=== PATIENT | female | born 1970 | race American Indian/Alaskan Native ===

== ENCOUNTER 2018-09-18 15:23 | Outpatient (CLI) | payer OTHER ==
--- NOTE | 2018-09-18 21:40 | XRay Report ---
PROCEDURE: XR CHEST ROUTINE 2V TECHNIQUE: PA and lateral chest radiographs were obtained. HISTORY: DISABILITY EXAM, HISTORY OF CONGESTIVE HEART FAILURE COMPARISONS: None. FINDINGS: Heart: Mild to moderate degree cardiomegaly is noted. Mediastinum/Vessels: Pulmonary venous congestion is identified. Lungs/Pleural space: There is diffuse prominence of interstitial markings. There are no infiltrates or mass lesions. Pleural spaces are clear.. Bony thorax: No acute osseous abnormality. IMPRESSION: Cardiomegaly with mild degree pulmonary venous congestion Prominent interstitial markings may represent interstitial edema versus interstitial fibrosis This document is electronically signed by Duy Zhang MD., Sep 18 2018 09:38:33 PM ET
== END 2018-09-18 15:24 | disposition home or self-care (01) ==
LOC: XRAY 15:23
PROVIDERS: ATTEND Internal Medicine
DX: Z02.71 Encounter for disability determination (principal); I87.8 Other specified disorders of veins; I11.0 Hypertensive heart disease with heart failure; I50.9 Heart failure, unspecified; E78.5 Hyperlipidemia, unspecified; E11.9 Type 2 diabetes mellitus without complications; Z86.79 Personal history of other diseases of the circulatory system
CPT/HCPCS: 71046

== ENCOUNTER 2020-03-28 00:25 | Inpatient (IN) | payer MEDICARE, OTHER ==
[2020-03-28] MEDS ORDERED: NITROGLYCERIN DRIP 50 MG/250 ML BOTTLE IV SCH (01:00)
--- NOTE | 2020-03-28 01:02 | Emergency Department Report ---
ED General Adult HPI - General Chief complaint: Dyspnea/Respdistress Stated complaint: JUDY PUI?: No Time Seen by Provider: 03/28/20 00:32 Source: patient, EMS (Verbal report received from emergency medical services. EMS documentation not available at time of chart dictation ), RN notes reviewed, old records reviewed Mode of arrival: Stretcher Limitations: Physical Limitation - History of Present Illness Initial comments: The patient was evaluated in the emergency department for symptoms described in the history of present illness. He/she was evaluated in the context of the global COVID-19 pandemic, which necessitated consideration that the patient might be at risk for infection with the virus that causes COVID-19. Ins titutional protocols and algorithms that pertain to the evaluation of patients at risk for COVID-19 are in a state of rapid change based on information released by regulatory bodies including the CDC and federal and state organizations. These policies and algorithms were followed during the patient's care in the emergency department. Please note that these policies, procedures and recommendations changed on a rapid basis. Cardiology: Dr. Zamarripa The patient is a 50-year-old female, with a history of CHF, EF of 20%, documented in 2015 at this hospital, reportedly on Eliquis, obesity, hype rtension, TIA. She is brought to the hospital today by emergency medical services on CPAP with a complaint of painless shortness of breath. The patient denies headache, neck pain, abdominal pain, chest pain. She denies hematemesis. She feels nauseous. No urinary symptoms. Reports compliance with systemic anticoagulation. Denies travel, surgery, recent , delivery, and posterior leg discomfort. States that this feels similar to prior episodes of CHF exacerbations. She endorses to myself compliance with medications, and denies dietary indiscretions. -: Sudden Consistency: constant Improves with: medication, rest, other (CPAP/BiPAP) Worsens with: other (Laying down, physical exertion) - Related Data Home Medications Medication Instructions Recorded Confirmed Last Taken metFORMIN [Glucophage] 500 mg PO BID 11/04/14 02/05/15 02/04/15 Previous Rx's Medication Instructions Recorded Last Taken Type Aspirin [Aspirin BABY CHEW TAB] 81 mg PO QDAY #30 tab.chew 11/10/14 02/04/15 Rx Enoxaparin 130 mg SUB-Q Q12HR #10 syringe 11/10/14 02/04/15 Rx Famotidine [Pepcid] 20 mg PO BID #60 tablet 11/10/14 02/04/15 Rx Insulin Glargine [Lantus VIAL] 10 units SUB-Q QHS #30 units 11/10/14 02/04/15 Rx Simvastatin (Nf) [Zocor TAB] 20 mg PO QHS #30 tablet 11/10/14 02/04/15 Rx Spironolactone [Aldactone] 25 mg PO QDAY #30 tablet 11/10/14 02/04/15 Rx Warfarin [Coumadin] 2 mg PO DAILY@1700 #30 tablet 11/10/14 02/04/15 Rx Warfarin [Coumadin] 10 mg PO DAILY@1700 #30 tablet 11/10/14 02/04/15 Rx amLODIPine 10 mg PO QDAY #30 tablet 11/10/14 02/04/15 Rx carvediloL [Coreg] 25 mg PO BID #30 tablet 11/10/14 02/04/15 Rx lisinopriL [Zestril TAB] 10 mg PO QDAY #30 tablet 11/10/14 02/04/15 Rx oxyCODONE /ACETAMINOPHEN [Percocet 1 tab PO Q6HR PRN #14 tablet 02/05/15 Unknown Rx 5/325] Allergies Allergy/AdvReac Type Severity Reaction Status Date / Time meperidine HCl [From Demerol] Allergy Itching Verified 11/04/14 18:36 penicillin Allergy Unknown Verified 11/04/14 17:55 ED Review of Systems ROS: Stated complaint: JUDY Other details as noted in HPI Comment: Unobtainable due to pts medical conditions Constitutional: denies: fever Respiratory: cough, shortness of breath Cardiovascular: dyspnea on exertion, orthopnea. denies: chest pain Gastrointestinal: denies: hematemesis, melena, hematochezia Neurological: weakness Hematological/Lymphatic: denies: easy bleeding ED Past Medical Hx - Past Medical History Hx Hypertension: Yes Hx Heart Attack/AMI: No Hx Congestive Heart Failure: No Hx Diabetes: Yes Hx Deep Vein Thrombosis: No Hx Pulmonary Embolism: No Hx Liver Disease: No Hx Renal Disease: No Hx Sickle Cell Disease: No Hx Arthritis: No Hx Seizures: No Hx Kidney Stones: No Hx Asthma: No Hx COPD: No Hx Tuberculosis: No Hx Dementia: No Hx HIV: No - Surgical History Hx Coronary Stent: No Hx Pacemaker: No Hx Internal Defibrillator: No Additional Surgical History: tubal ligation - Social History Smoking Status: Never Smoker Substance Use Type: None - Medications Home Medications: Home Medications Medication Instructions Recorded Confirmed Last Taken Type metFORMIN [Glucophage] 500 mg PO BID 11/04/14 02/05/15 02/04/15 History Aspirin [Aspirin BABY CHEW TAB] 81 mg PO QDAY #30 tab.chew 11/10/14 02/05/15 02/04/15 Rx Enoxaparin 130 mg SUB-Q Q12HR #10 syringe 11/10/14 02/05/15 02/04/15 Rx Famotidine [Pepcid] 20 mg PO BID #60 tablet 11/10/14 02/05/15 02/04/15 Rx Insulin Glargine [Lantus VIAL] 10 units SUB-Q QHS #30 units 11/10/14 02/05/15 02/04/15 Rx Simvastatin (Nf) [Zocor TAB] 20 mg PO QHS #30 tablet 11/10/14 02/05/15 02/04/15 Rx Spironolactone [Aldactone] 25 mg PO QDAY #30 tablet 11/10/14 02/05/15 02/04/15 Rx Warfarin [Coumadin] 2 mg PO DAILY@1700 #30 tablet 11/10/14 02/05/15 02/04/15 Rx Warfarin [Coumadin] 10 mg PO DAILY@1700 #30 tablet 11/10/14 02/05/15 02/04/15 Rx amLODIPine 10 mg PO QDAY #30 tablet 11/10/14 02/05/15 02/04/15 Rx carvediloL [Coreg] 25 mg PO BID #30 tablet 11/10/14 02/05/15 02/04/15 Rx lisinopriL [Zestril TAB] 10 mg PO QDAY #30 tablet 11/10/14 02/05/15 02/04/15 Rx oxyCODONE /ACETAMINOPHEN [Percocet 1 tab PO Q6HR PRN #14 tablet 02/05/15 Unknown Rx 5/325] ED Physical Exam - General Limitations: Physical Limitation General appearance: alert, anxious, in distress, obese - Head Head exam: Present: atraumatic, normocephalic - Eye Eye exam: Present: normal appearance, EOMI. Absent: nystagmus - ENT ENT exam: Present: normal exam, normal orophraynx, mucous membranes moist, normal external ear exam, other (There is no stridor.) - Neck Neck exam: Present: normal inspection, full ROM. Absent: tenderness, meningismus - Respiratory Respiratory exam: Present: respiratory distress, wheezes, rales, rhonchi, accessory muscle use - Cardiovascular Cardiovascular Exam: Present: normal rhythm, tachycardia, normal heart sounds. Absent: systolic murmur, diastolic murmur, rubs, gallop - GI/Abdominal GI/Abdominal exam: Present: soft. Absent: distended, tenderness, guarding, rebound, rigid, pulsatile mass - Extremities Exam Extremities exam: Present: normal inspection, full ROM, pedal edema (1-2+ edema in the bilateral lower extremities), other (2+ pulses noted in the bilateral upper and lower extremities. There is no palpable cord. negative Homans sign. Muscular compartments are soft. The pelvis is stable.). Absent: calf tenderness - Back Exam Back exam: Present: normal inspection. Absent: tenderness, CVA tenderness (R), CVA tenderness (L), paraspinal tenderness, vertebral tenderness - Neurological Exam Neurological exam: Present: alert, other (No facial droop. Tongue midline. Extraocular movements intact bilaterally. Facial sensation intact to light touch in V1, V2, V3 distribution bilaterally. 5 and a 5 strength in 4 extremities. Sensation intact to light touch in 4 extremities.) - Psychiatric Psychiatric exam: Present: anxious - Skin Skin exam: Present: warm, dry, intact, normal color. Absent: rash ED Course Vital Signs 03/28/20 03/28/20 03/28/20 00:30 00:45 01:00 Temperature 98.9 F Pulse Rate 123 H 127 H 123 H Respiratory 48 H 41 H 38 H Rate Blood Pressure 210/117 Blood Pressure 210/117 [Left] O2 Sat by Pulse 98 96 100 Oximetry 03/28/20 03/28/20 03/28/20 01:01 01:15 01:30 Temperature Pulse Rate 123 H 122 H 122 H Respiratory 33 H 29 H 22 Rate Blood Pressure 201/113 201/113 173/104 Blood Pressure [Left] O2 Sat by Pulse 100 100 100 Oximetry 03/28/20 03/28/20 03/28/20 01:45 02:00 02:15 Temperature Pulse Rate 120 H 118 H 120 H Respiratory 29 H 26 H 20 Rate Blood Pressure 166/95 172/98 172/98 Blood Pressure [Left] O2 Sat by Pulse 100 100 100 Oximetry 03/28/20 03/28/20 02:30 02:45 Temperature Pulse Rate 116 H 93 H Respiratory 24 18 Rate Blood Pressure 157/90 157/90 Blood Pressure [Left] O2 Sat by Pulse 100 100 Oximetry - Reevaluation(s) Reevaluation #1: 03/28/20 02:29 Patient reassessed multiple times. She indicates that she feels improved. Heart rate 115 to 117 bpm, blood pressure in the 140s. Laboratory studies demonstrate proBNP, elevated troponin, likely type II troponin leak, renal insufficiency, and metabolic acidosis. Patient states no abdominal pain at this time. High-dose Lasix is ordered. Hospital physician, Dr. Kizzy Xavier to admit Arterial blood gas suggests uncompensated metabolic acidosis, which is consisten t with patient's renal insufficiency. Elevated lactic acid is reviewed and appreciated. We appreciate that patient meets systemic inflammatory response syndrome, by merit of her abnormal vital signs and lactic acidosis. However, I suspect that her vital sign abnormalities and laboratory abnormalities are likely secondary to her renal insufficiency, and flash pulmonary edema. Do not suspect stephanie teremia/viremia at this time. Given evidence of obvious fluid overload, hypoxemic respiratory failure, need for positive pressure ventilation, requirements for diuresis, the patient would be ill served by aggressive fluid resuscitation/bolus. In addition, there may be a component of cardiorenal syndrome here, with congestive heart failure. Will defer to inpatient team to further elaborate and elucidate 03/28/20 02:30 03/28/20 02:32 Reevaluation #2: 03/28/20 03:28 Clinically much improved. Tachycardia resolved. EKG #3 shows sinus rhythm, normal axis, QTC prolonged. Prior EKG suggested a junctional tachycardia. Still on nitroglycerin. ED Medical Decision Making - Lab Data Result diagrams: 03/28/20 00:44 03/28/20 00:44 Vital Signs 03/28/20 01:00 Pulse Rate 123 H Respiratory 38 H Rate O2 Sat by Pulse 100 Oximetry Lab Results 03/28/20 03/28/20 Range/Units 00:44 01:05 WBC 11.0 (4.5-11.0) K/mm3 RBC 2.87 L (3.65-5.03) M/mm3 Hgb 9.2 L (10.1-14.3) gm/dl Hct 28.6 L (30.3-42.9) % MCV 100 H (79-97) fl MCH 32 (28-32) pg MCHC 32 (30-34) % RDW 18.7 H (13.2-15.2) % Plt Count 256 (140-440) K/mm3 Lymph % (Auto) 20.0 (13.4-35.0) % [place] % (Auto) 11.0 H (0.0-7.3) % Eos % (Auto) 1.4 (0.0-4.3) % Baso % (Auto) 0.6 (0.0-1.8) % Lymph # (Auto) 2.2 (1.2-5.4) K/mm3 [place] # (Auto) 1.2 H (0.0-0.8) K/mm3 Eos # (Auto) 0.2 (0.0-0.4) K/mm3 Baso # (Auto) 0.1 (0.0-0.1) K/mm3 Seg Neutrophils % 67.0 (40.0-70.0) % Seg Neutrophils # 7.4 (1.8-7.7) K/mm3 ABG pH 7.224 L (7.350-7.450) pH Units ABG pCO2 35.1 mm Hg ABG pO2 153.4 H (80.0-90.0) mm Hg ABG HCO3 14.2 L (20.0-26.0) mmol/L ABG O2 Saturation 98.7 (95.0-99.0) % ABG O2 Content 11.5 (0.0-44) ABG Base Excess -12.4 L (-2.0-3.0) mmol/L ABG Hemoglobin 8.2 L (12.0-16.0) gm/dl ABG Carboxyhemoglobin 1.6 (0.0-5.0) % ABG Methemoglobin 0.4 (0.0-1.5) % Oxyhemoglobin 96.7 (95.0-99.0) % FiO2 100 % - EKG Data -: EKG Interpreted by Va Rate: tachycardia - EKG Data 03/28/20 02:32 EKG suggests a junctional tachycardia, rate 122 bpm, normal axis, QTC 493 ms. Abnormal EKG. No STEMI. - Radiology Data Radiology results: pending, report reviewed, image reviewed Print Report Referring Physician: DAHLIA HOYOS Patient Name: JADA WORRELL Date of : 1970 Sex: Female Report Date: 2020-03-28 Report Status: Finalized Findings [facility] [address] [place] [address] XRay Report Signed Patient: JADA TAPIA MR#: [id number] : 1970 Acct:[id number] Age/Sex: 50 / F ADM Date: 03/28/20 Loc: ED Attending Dr: Ordering Physician: DAHLIA HOYOS MD Date of Service: 03/28/20 Procedure(s): XR chest 1V ap Accession Number(s): [id number] cc: DAHLIA HOYOS MD Fluoro Time In Minutes: CHEST 1 VIEW INDICATION: Dyspnea. COMPARISON: 09/18/2018 FINDINGS: SUPPORT DEVICES: None. HEART: Mild cardiomegaly. LUNGS/PLEURA: Mild- moderate interstitial edema. ADDITIONAL FINDINGS: None. IMPRESSION: 1. Cardiomegaly with mild to moderate interstitial edema. Signer Name: Jovan Varela MD Signed: 03/28/2020 1:10 AM Workstation Name: [id number] Transcribed By: JW Dictated By: Jovan Varela MD Electronically Authenticated By: Jovan Varela MD Signed Date/Time: 03/28/20109 DD/ 9 TD/TT: - Medical Decision Making Differential diagnosis, including but not limited to: Congestive heart failure, pneumonia, flash pulmonary edema, sympathetic acute pulmonary edema Assessment and plan: 50-year-old female, tachycardic, tachypneic, hypoxic, with no DVT or pulmonary embolism risk factors, who is systemically anticoagulated, resenting with probable flash pulmonary edema. She is improved on BiPAP. Start high-dose nitroglycerin. Denies fever, loss of taste, loss of smell, and exposure to Covid. Check basic laboratory studies, x-ray of the chest, diuresis when appropriate, admit to stepdown versus ICU. Discussed this plan of care with the patient, who verbalized understanding, and who is amenable to this plan of care. Critical Care Time: Yes Critical care time in (mins) excluding proc time.: 35 Critical care attestation.: If time is entered above; I have spent that time in minutes in the direct care of this critically ill patient, excluding procedure time. ED Disposition Clinical Impression: Flash pulmonary edema, Acute respiratory failure, Hypertensive emergency, Renal insufficiency, Metabolic acidosis Disposition: DC-09 OP ADMIT IP TO THIS HOSP Is pt being admited?: Yes Does the pt Need Aspirin: No Condition: Critical
--- NOTE | 2020-03-28 01:15 | XRay Report ---
CHEST 1 VIEW INDICATION: Dyspnea. COMPARISON: 09/18/2018 FINDINGS: SUPPORT DEVICES: None. HEART: Mild cardiomegaly. LUNGS/PLEURA: Mild-moderate interstitial edema. ADDITIONAL FINDINGS: None. IMPRESSION: 1. Cardiomegaly with mild to moderate interstitial edema. Signer Name: Jovan Varela MD Signed: 03/28/2020 1:10 AM Workstation Name: [id number]
[2020-03-28 01:27] LABS: ABG Base Excess -12.4 mmol/L (-2.0-3.0); ABG HCO3 14.2 mmol/L (20.0-26.0); ABG Methemoglobin 0.4 % (0.0-1.5); ABG Oxygen Saturation 98.7 % (95.0-99.0); ABG PCO2 35.1 mm Hg; ABG PH 7.224 pH Units (7.350-7.450); ABG PO2 153.4 mm Hg (80.0-90.0)
[2020-03-28 01:27] LABS: Basophils # (Auto) 0.1 K/mm3 (0.0-0.1); Basophils % (Auto) 0.6 % (0.0-1.8); Eosinophils # (Auto) 0.2 K/mm3 (0.0-0.4); Eosinophils % (Auto) 1.4 % (0.0-4.3); Hematocrit 28.6 % (30.3-42.9); Hemoglobin 9.2 gm/dl (10.1-14.3); Lymphocytes # (Auto) 2.2 K/mm3 (1.2-5.4); Mean Corpuscular HGB Conc 32 % (30-34); Mean Corpuscular Volume 100 fl (79-97); Monocytes # (Auto) 1.2 K/mm3 (0.0-0.8); Platelet Count 256 K/mm3 (140-440); Red Blood Count 2.87 M/mm3 (3.65-5.03); Red Cell Distribution Width 18.7 % (13.2-15.2)
[2020-03-28 01:36] LABS: INR 1.26 (0.87-1.13)
[2020-03-28 01:47] LABS: Albumin 4.4 g/dL (3.9-5)
[2020-03-28] MEDS ORDERED: ASPIRIN 81 MG TAB CHEW PO ONE (02:28)
[2020-03-28] MEDS ORDERED: FUROSEMIDE 40 MG/4 ML INJ IV ONE (02:28)
[2020-03-28 02:30] LABS: Chol/HDL Ratio 2.29 %
[2020-03-28] MEDS ORDERED: DEXTROSE 50% IN WATER (25GM) 50 ML SYRINGE IV PRN (03:29)
[2020-03-28] MEDS ORDERED: ONDANSETRON 4 MG/2 ML INJ IV PRN (03:29)
[2020-03-28] MEDS ORDERED: MORPHINE 2 MG/1 ML INJ IV PRN (03:29)
[2020-03-28] MEDS ORDERED: MAGNESIUM HYDROXIDE (MOM) ORAL LIQD UDC PO PRN (03:29)
--- NOTE | 2020-03-28 03:46 | History and Physical Report ---
History of Present Illness Date of examination: 03/28/20 Date of admission: 03/28/20 02:31 Chief complaint: Shortness of Breath History of present illness: 50-year-old female with known history of hypertension, diabetes mellitus, TIA, CHF with ejection fraction of 20% in 2014 presenting to the emergency room via EMS today complaining of shortness of breath. Patient denies any fever or chills, no chest pain, no diaphoresis, no nausea vomiting, no abdominal pain, no hematuria or dysuria. Denies any headache or dizziness. Patient denies any sick contacts and no recent travel. Symptoms were said to have started earlier this afternoon. Patient was placed on CPAP by EMS in route to the hospital. Upon arrival in the emergency room today blood pressure was quite elevated with systolic in the 240 and diastolic of 117. She was tachypneic in room some respiratory distress. Work-up reveals elevated BNP, there was a slight elevation in the troponin, chest x-ray shows pulmonary vascular congestion, EKG did not show any acute changes. Patient was started on nitroglycerin drip, given some IV Lasix and subsequently placed on BiPAP. Patient has been admitted for CHF exacerbation, hypertensive emergency and renal insufficiency. Past History Past Medical History: diabetes, heart failure (EF 20 % in 2015.), hypertension, other (Obesity) Past Surgical History: Other (Tubal Ligation) Social history: no significant social history Family history: no significant family history Medications and Allergies Allergies Allergy/AdvReac Type Severity Reaction Status Date / Time meperidine HCl [From Demerol] Allergy Itching Verified 11/04/14 18:36 penicillin Allergy Unknown Verified 11/04/14 17:55 Home Medications Medication Instructions Recorded Confirmed Last Taken Type metFORMIN [Glucophage] 500 mg PO BID 11/04/14 02/05/15 02/04/15 History Aspirin [Aspirin BABY CHEW TAB] 81 mg PO QDAY #30 tab.chew 11/10/14 02/05/15 02/04/15 Rx Enoxaparin 130 mg SUB-Q Q12HR #10 syringe 11/10/14 02/05/15 02/04/15 Rx Famotidine [Pepcid] 20 mg PO BID #60 tablet 11/10/14 02/05/15 02/04/15 Rx Insulin Glargine [Lantus VIAL] 10 units SUB-Q QHS #30 units 11/10/14 02/05/15 02/04/15 Rx Simvastatin (Nf) [Zocor TAB] 20 mg PO QHS #30 tablet 11/10/14 02/05/15 02/04/15 Rx Spironolactone [Aldactone] 25 mg PO QDAY #30 tablet 11/10/14 02/05/15 02/04/15 Rx Warfarin [Coumadin] 2 mg PO DAILY@1700 #30 tablet 11/10/14 02/05/15 02/04/15 Rx Warfarin [Coumadin] 10 mg PO DAILY@1700 #30 tablet 11/10/14 02/05/15 02/04/15 Rx amLODIPine 10 mg PO QDAY #30 tablet 11/10/14 02/05/15 02/04/15 Rx carvediloL [Coreg] 25 mg PO BID #30 tablet 11/10/14 02/05/15 02/04/15 Rx lisinopriL [Zestril TAB] 10 mg PO QDAY #30 tablet 11/10/14 02/05/15 02/04/15 Rx oxyCODONE /ACETAMINOPHEN [Percocet 1 tab PO Q6HR PRN #14 tablet 02/05/15 Unknown Rx 5/325] Active Meds: Active Medications Dextrose (D50w (25gm) Syringe) 50 ml IV Q30MIN PRN; Protocol PRN Reason: Hypoglycemia Dextrose (D50w (25gm) Syringe) 50 ml IV Q30MIN PRN; Protocol PRN Reason: Hypoglycemia Furosemide (Lasix) 40 mg IV BID@0600,1800 IRVIN Nitroglycerin/Dextrose (Tridil Drip 50mg/250ml) 50 mg in 250 mls @ 3 mls/hr IV TITR IRVIN; Protocol Last Admin: 03/28/20 01:00 Dose: 10 mcg/min, 3 mls/hr Documented by: Insulin Human Lispro (Humalog) 0 unit SUB-Q ACHS IRVIN; Protocol Magnesium Hydroxide (Milk Of Magnesia) 30 ml PO Q4H PRN PRN Reason: Constipation Morphine Sulfate (Morphine) 2 mg IV Q4H PRN PRN Reason: Pain, Moderate (4-6) Ondansetron HCl (Zofran) 4 mg IV Q8H PRN PRN Reason: Nausea And Vomiting Sodium Chloride (Sodium Chloride Flush Syringe 10 Ml) 10 ml IV BID IRVIN Sodium Chloride (Sodium Chloride Flush Syringe 10 Ml) 10 ml IV PRN PRN PRN Reason: LINE FLUSH Review of Systems Constitutional: no fever, no chills Ears, nose, mouth and throat: no nasal congestion, no sore throat Cardiovascular: no chest pain, no palpitations Respiratory: no cough, no shortness of breath, no wheezing Gastrointestinal: no abdominal pain, no nausea, no vomiting, no diarrhea Genitourinary Female: no flank pain, no dysuria, no hematuria Musculoskeletal: no neck pain, no low back pain Integumentary: no rash, no pruritis Neurological: no headaches, no confusion Psychiatric: no anxiety, no depression Exam - Constitutional Vitals: Temp Pulse Resp BP Pulse Ox 98.9 F 123 H 26 H 157/90 100 03/28/20 00:30 03/28/20 03:35 03/28/20 03:35 03/28/20 02:45 03/28/20 03:35 General appearance: Present: mild distress, well-nourished - EENT Eyes: Present: PERRL, EOM intact. Absent: scleral icterus ENT: hearing intact, clear oral mucosa, dentition normal - Neck Neck: Present: supple, normal ROM - Respiratory Respiratory effort: normal Respiratory: bilateral: rales - Cardiovascular Rhythm: regular Heart Sounds: Present: S1 & S2. Absent: gallop, systolic murmur, diastolic murmur, rub - Extremities Extremities: no ischemia, pulses intact, pulses symmetrical, No edema, Full ROM Peripheral Pulses: within normal limits - Abdominal General gastrointestinal: Present: soft, non-tender, non-distended, normal bowel sounds. Absent: mass - Integumentary Integumentary: Present: clear, warm, dry. Absent: rash - Musculoskeletal Musculoskeletal: strength equal bilaterally - Psychiatric Psychiatric: appropriate mood/affect, intact judgment & insight, memory intact, cooperative - Neurologic Neurologic: CNII-XII intact, no focal deficits, moves all extremities HEART Score - HEART Score Troponin: Troponin T 0.134 ng/mL (0.00-0.029) H* 03/28/20 00:44 Results - Labs CBC & Chem 7: 03/28/20 00:44 03/28/20 00:44 Labs: Abnormal lab results 03/28/20 03/28/20 03/28/20 Range/Units 00:44 00:44 00:44 RBC 2.87 L (3.65-5.03) M/mm3 Hgb 9.2 L (10.1-14.3) gm/dl Hct 28.6 L (30.3-42.9) % MCV 100 H (79-97) fl RDW 18.7 H (13.2-15.2) % [place] % (Auto) 11.0 H (0.0-7.3) % [place] # (Auto) 1.2 H (0.0-0.8) K/mm3 PT 15.6 H (12.2-14.9) Sec. INR 1.26 H (0.87-1.13) ABG pH (7.350-7.450) pH Units ABG pO2 (80.0-90.0) mm Hg ABG HCO3 (20.0-26.0) mmol/L ABG Base Excess (-2.0-3.0) mmol/L ABG Hemoglobin (12.0-16.0) gm/dl Carbon Dioxide 11 L (22-30) mmol/L BUN 65 H (7-17) mg/dL Creatinine 4.7 H (0.6-1.2) mg/dL Glucose 118 H (65-100) mg/dL Lactic Acid (0.7-2.0) mmol/L Total Bilirubin 1.40 H (0.1-1.2) mg/dL Alkaline Phosphatase 260 H (35-129) units/L Troponin T 0.134 H* (0.00-0.029) ng/mL NT-Pro-B Natriuret Pep (0-450) pg/mL Total Protein 8.6 H (6.3-8.2) g/dL HDL Cholesterol 62 H (40-59) mg/dL HCG, Quant (0-4) mIU/mL 03/28/20 03/28/20 03/28/20 Range/Units 00:44 00:44 00:44 RBC (3.65-5.03) M/mm3 Hgb (10.1-14.3) gm/dl Hct (30.3-42.9) % MCV (79-97) fl RDW (13.2-15.2) % [place] % (Auto) (0.0-7.3) % [place] # (Auto) (0.0-0.8) K/mm3 PT (12.2-14.9) Sec. INR (0.87-1.13) ABG pH (7.350-7.450) pH Units ABG pO2 (80.0-90.0) mm Hg ABG HCO3 (20.0-26.0) mmol/L ABG Base Excess (-2.0-3.0) mmol/L ABG Hemoglobin (12.0-16.0) gm/dl Carbon Dioxide (22-30) mmol/L BUN (7-17) mg/dL Creatinine (0.6-1.2) mg/dL Glucose (65-100) mg/dL Lactic Acid 5.20 H* (0.7-2.0) mmol/L Total Bilirubin (0.1-1.2) mg/dL Alkaline Phosphatase (35-129) units/L Troponin T (0.00-0.029) ng/mL NT-Pro-B Natriuret Pep 71590 H (0-450) pg/mL Total Protein (6.3-8.2) g/dL HDL Cholesterol (40-59) mg/dL HCG, Quant 9.39 H (0-4) mIU/mL 03/28/20 Range/Units 01:05 RBC (3.65-5.03) M/mm3 Hgb (10.1-14.3) gm/dl Hct (30.3-42.9) % MCV (79-97) fl RDW (13.2-15.2) % [place] % (Auto) (0.0-7.3) % [place] # (Auto) (0.0-0.8) K/mm3 PT (12.2-14.9) Sec. INR (0.87-1.13) ABG pH 7.224 L (7.350-7.450) pH Units ABG pO2 153.4 H (80.0-90.0) mm Hg ABG HCO3 14.2 L (20.0-26.0) mmol/L ABG Base Excess -12.4 L (-2.0-3.0) mmol/L ABG Hemoglobin 8.2 L (12.0-16.0) gm/dl Carbon Dioxide (22-30) mmol/L BUN (7-17) mg/dL Creatinine (0.6-1.2) mg/dL Glucose (65-100) mg/dL Lactic Acid (0.7-2.0) mmol/L Total Bilirubin (0.1-1.2) mg/dL Alkaline Phosphatase (35-129) units/L Troponin T (0.00-0.029) ng/mL NT-Pro-B Natriuret Pep (0-450) pg/mL Total Protein (6.3-8.2) g/dL HDL Cholesterol (40-59) mg/dL HCG, Quant (0-4) mIU/mL Assessment and Plan - Patient Problems (1) Pulmonary edema Current Visit: Yes Status: Acute Plan to address problem: Patient has known history of CHF with ejection fraction of 20% in 2015. Patient is placed on diuretics. Will monitor inputs and outputs and also monitor daily weight. She will be scheduled for echocardiogram. We will place a consult to cardiology for evaluation. (2) Acute respiratory failure Current Visit: Yes Status: Acute Plan to address problem: Possibly secondary to flash pulmonary edema. Patient currently on BiPAP. (3) Hypertensive emergency Current Visit: Yes Status: Acute Plan to address problem: Patient placed on nitroglycerin drip. Will titrate according to protocol. (4) Renal insufficiency Current Visit: Yes Status: Acute Plan to address problem: We will monitor BUN and creatinine. We will place consult to nephrology for evaluation. (5) Diabetes mellitus Current Visit: No Status: Chronic Plan to address problem: We will monitor Accu-Cheks. We will continue routine home medications once reconciled. (6) DVT prophylaxis Current Visit: Yes Status: Acute Plan to address problem: Patient placed on subcutaneous heparin. (7) Full code status Current Visit: Yes Status: Acute
[2020-03-28] MEDS: FUROSEMIDE 40 MG/4 ML INJ IV SCH ×2 (06:29→18:27)
[2020-03-28] MEDS: INSULIN LISPRO 100 UNIT/ML VIAL 3 mL SUB-Q SCH ×3 (07:50→16:55)
--- NOTE | 2020-03-28 09:54 | Progress Note ---
Assessment and Plan Assessment and plan: --Acute pulmonary edema: Current Visit: Yes Status: Acute Plan to address problem: Patient has known history of CHF with ejection fraction of 20% in 2015. Due to acute on chronic systolic congestive heart failure Antifailure medications diuretic beta-blockers No MODESTO inhibitors in view of acute kidney injury Input output monitoring Daily weights Fluid restriction low-sodium diet Follow echocardiogram for LV function ejection fraction --Acute on chronic mild systolic CHF[EF 40 to 45% 03/28/2020] Current Visit: Yes Status: Acute Plan to address problem: Continue current antifailure medications Cardiology following -- Hypertensive emergency Current Visit: Yes Status: Acute Plan to address problem: Patient placed on nitroglycerin drip. BP reasonable level titrate and DC the drip --Acute kidney injury Current Visit: Yes Status: Acute Plan to address problem: Vasomotor nephropathy , Closely monitor renal function, avoid nephrotoxin Nephrology consult --Type II diabetes mellitus Current Visit: No Status: Chronic Plan to address problem: Accu-Chek sliding scale coverage ADA diet insulin as needed --Morbid obesity; BMI 40.0 Current Visit: Yes Status: Acute . Plan to address problem: Advised diet modification exercise as tolerated and weight reduction, When medically stable --DVT prophylaxis Current Visit: Yes Status: Acute . Plan to address problem: Patient placed on subcutaneous heparin. --Full code status Current Visit: Yes Status: Acute We will closely monitor the patient and adjust the management as needed We will titrate and DC nitroglycerin drip And downgrade patient's admission from ICU to telemetry Plan of care reviewed with the patient and her nurse Bella labs requested Critical care time 45 minutes The high probability of a clinically significant, sudden or life threatening deterioration of the [cardiac, pulmonary, metabolic ,renal, neuro] system(s) required my full and direct attention, intervention and personal management. The aggregate critical care time was [45] minutes. This time is in addition to time spent performing reported procedures but includes the following: [x] Data Review and interpretation [x] Patient assessment and monitoring of vital signs [x] Documentation [x] Medication orders and management History Interval history: I have seen and examined the patient at the bedside in ICU awaiting bed assignment Patient's chart and medications reviewed Admitted with hypertensive emergency On Tridil drip, blood pressures reasonable level Titrate and DC nitroglycerin drip Patient denies chest pain or shortness of breath Vital signs noted Hospitalist Physical - Constitutional Vitals: Temp Pulse Resp BP Pulse Ox 98.9 F 82 18 165/90 100 03/28/20 00:30 03/28/20 09:15 03/28/20 09:15 03/28/20 09:15 03/28/20 09:15 General appearance: Present: mild distress, well-nourished, obese (Morbidly obese) - EENT Eyes: Present: PERRL, EOM intact - Neck Neck: Present: supple, normal ROM - Respiratory Respiratory effort: normal Respiratory: bilateral: diminished, negative: rales, rhonchi, wheezing - Cardiovascular Rhythm: regular Heart Sounds: Present: S1 & S2 - Extremities Extremities: no ischemia Extremity abnormal: edema - Abdominal General gastrointestinal: soft, non-tender, non-distended, normal bowel sounds - Integumentary Integumentary: Present: clear, warm - Psychiatric Psychiatric: appropriate mood/affect, cooperative - Neurologic Neurologic: CNII-XII intact, moves all extremities HEART Score - HEART Score Troponin: Troponin T 0.134 ng/mL (0.00-0.029) H* 03/28/20 00:44 Results - Labs CBC & Chem 7: 03/28/20 00:44 03/28/20 00:44 Labs: Laboratory Last Values WBC 11.0 K/mm3 (4.5-11.0) 03/28/20 00:44 RBC 2.87 M/mm3 (3.65-5.03) L 03/28/20 00:44 Hgb 9.2 gm/dl (10.1-14.3) L 03/28/20 00:44 Hct 28.6 % (30.3-42.9) L 03/28/20 00:44 MCV 100 fl (79-97) H 03/28/20 00:44 MCH 32 pg (28-32) 03/28/20 00:44 MCHC 32 % (30-34) 03/28/20 00:44 RDW 18.7 % (13.2-15.2) H 03/28/20 00:44 Plt Count 256 K/mm3 (140-440) 03/28/20 00:44 Lymph % (Auto) 20.0 % (13.4-35.0) 03/28/20 00:44 [place] % (Auto) 11.0 % (0.0-7.3) H 03/28/20 00:44 Eos % (Auto) 1.4 % (0.0-4.3) 03/28/20 00:44 Baso % (Auto) 0.6 % (0.0-1.8) 03/28/20 00:44 Lymph # (Auto) 2.2 K/mm3 (1.2-5.4) 03/28/20 00:44 [place] # (Auto) 1.2 K/mm3 (0.0-0.8) H 03/28/20 00:44 Eos # (Auto) 0.2 K/mm3 (0.0-0.4) 03/28/20 00:44 Baso # (Auto) 0.1 K/mm3 (0.0-0.1) 03/28/20 00:44 Seg Neutrophils % 67.0 % (40.0-70.0) 03/28/20 00:44 Seg Neutrophils # 7.4 K/mm3 (1.8-7.7) 03/28/20 00:44 PT 15.6 Sec. (12.2-14.9) H 03/28/20 00:44 INR 1.26 (0.87-1.13) H 03/28/20 00:44 ABG pH 7.224 pH Units (7.350-7.450) L 03/28/20 01:05 ABG pCO2 35.1 mm Hg 03/28/20 01:05 ABG pO2 153.4 mm Hg (80.0-90.0) H 03/28/20 01:05 ABG HCO3 14.2 mmol/L (20.0-26.0) L 03/28/20 01:05 ABG O2 Saturation 98.7 % (95.0-99.0) 03/28/20 01:05 ABG O2 Content 11.5 (0.0-44) 03/28/20 01:05 ABG Base Excess -12.4 mmol/L (-2.0-3.0) L 03/28/20 01:05 ABG Hemoglobin 8.2 gm/dl (12.0-16.0) L 03/28/20 01:05 ABG Carboxyhemoglobin 1.6 % (0.0-5.0) 03/28/20 01:05 ABG Methemoglobin 0.4 % (0.0-1.5) 03/28/20 01:05 Oxyhemoglobin 96.7 % (95.0-99.0) 03/28/20 01:05 FiO2 100 % 03/28/20 01:05 Sodium 139 mmol/L (137-145) 03/28/20 00:44 Potassium 4.8 mmol/L (3.6-5.0) 03/28/20 00:44 Chloride 106.8 mmol/L (98-107) 03/28/20 00:44 Carbon Dioxide 11 mmol/L (22-30) L 03/28/20 00:44 Anion Gap 26 mmol/L 03/28/20 00:44 BUN 65 mg/dL (7-17) H 03/28/20 00:44 Creatinine 4.7 mg/dL (0.6-1.2) H 03/28/20 00:44 Estimated GFR 12 ml/min 03/28/20 00:44 BUN/Creatinine Ratio 14 % 03/28/20 00:44 Glucose 118 mg/dL (65-100) H 03/28/20 00:44 POC Glucose 108 mg/dL (70-105) H 03/28/20 06:56 Lactic Acid 5.20 mmol/L (0.7-2.0) H* 03/28/20 00:44 Calcium 10.0 mg/dL (8.4-10.2) 03/28/20 00:44 Magnesium 2.20 mg/dL (1.7-2.3) 03/28/20 00:44 Total Bilirubin 1.40 mg/dL (0.1-1.2) H 03/28/20 00:44 AST 23 units/L (5-40) 03/28/20 00:44 ALT 21 units/L (7-56) 03/28/20 00:44 Alkaline Phosphatase 260 units/L (35-129) H 03/28/20 00:44 Total Creatine Kinase 134 units/L (30-135) 03/28/20 00:44 Troponin T 0.134 ng/mL (0.00-0.029) H* 03/28/20 00:44 NT-Pro-B Natriuret Pep 10920 pg/mL (0-450) H 03/28/20 00:44 Total Protein 8.6 g/dL (6.3-8.2) H 03/28/20 00:44 Albumin 4.4 g/dL (3.9-5) 03/28/20 00:44 Albumin/Globulin Ratio 1.0 % 03/28/20 00:44 Triglycerides 120 mg/dL (2-149) 03/28/20 00:44 Cholesterol 142 mg/dL (50-199) 03/28/20 00:44 LDL Cholesterol Direct 67 mg/dL (50-130) 03/28/20 00:44 HDL Cholesterol 62 mg/dL (40-59) H 03/28/20 00:44 Cholesterol/HDL Ratio 2.29 % 03/28/20 00:44 HCG, Quant 9.39 mIU/mL (0-4) H 03/28/20 00:44 Microbiology: Microbiology 03/28/20 01:12 Peripheral/Venous Blood Culture - Preliminary Culture in Progress 03/28/20 01:12 Peripheral/Venous Blood Culture - Preliminary Culture in Progress Mot[place]/IV: IV Catheter Type [Right INT / Saline Lock Antecubital] Active Medications - Current Medications Current Medications: Generic Name Dose Route Start Last Admin Trade Name Freq PRN Reason Stop Dose Admin Amlodipine Besylate 10 mg 03/28/20 10:00 Amlodipine PO DAILY [facility] Carvedilol 25 mg 03/28/20 10:00 Coreg PO Q12HR [facility] Dextrose 0 ml 03/28/20 03:29 D50w (25gm) Syringe IV Q30MIN PRN Hypoglycemia Protocol Furosemide 40 mg 03/28/20 06:00 03/28/20 06:29 Lasix IV Not Given BID@0600,1800 [facility] Hydralazine HCl 75 mg 03/28/20 14:00 Apresoline PO Q8HR [facility] Nitroglycerin/Dextrose 50 mg in 250 mls @ 3 mls/hr 03/28/20 01:00 03/28/20 06:45 Tridil Drip 50mg/250ml IV 40 mcg/min TITR [facility] 12 mls/hr Titration Protocol 10 MCG/MIN Insulin Human Lispro 0 unit 03/28/20 07:30 03/28/20 07:50 Humalog SUB-Q Not Given ACHS [facility] Protocol Isosorbide Mononitrate 30 mg 03/28/20 10:00 Imdur PO DAILY [facility] Magnesium Hydroxide 30 ml 03/28/20 03:29 Milk Of Magnesia PO Q4H PRN Constipation Morphine Sulfate 2 mg 03/28/20 03:29 Morphine IV Q4H PRN Pain, Moderate (4-6) Ondansetron HCl 4 mg 03/28/20 03:29 Zofran IV Q8H PRN Nausea And Vomiting Sodium Chloride 10 ml 03/28/20 10:00 Sodium Chloride Flush Syringe 10 Ml IV BID [facility] Sodium Chloride 10 ml 03/28/20 03:29 Sodium Chloride Flush Syringe 10 Ml IV PRN PRN LINE FLUSH
[2020-03-28] MEDS ORDERED: carvediloL 25 MG TAB ONE (10:29)
[2020-03-28] MEDS ORDERED: amLODIPine 10 MG TAB ONE (10:29)
--- NOTE | 2020-03-28 10:30 | Consultation ---
History of Present Illness Consult date: 03/28/20 Requesting physician: QUINTON PATTEN Reason for consult: hypoxemia History of present illness: 50 y/o female, morbid obesity presents with shortness of breath. Required PPV given her elevated BP and work of breathing. BNP was >25K. Started on IV diuresis and has had mild improvement. Patient last seen in this hospital system back in 2014, per cards has been following up with [facility]. Past History Past Medical History: diabetes, heart failure (EF 20 % in 2015.), hypertension, other (Obesity) Past Surgical History: Other (Tubal Ligation) Social history: no significant social history Family history: no significant family history Medications and Allergies Allergies Allergy/AdvReac Type Severity Reaction Status Date / Time meperidine HCl [From Demerol] Allergy Itching Verified 03/28/20 07:34 penicillin Allergy Unknown Verified 03/28/20 07:34 Home Medications Medication Instructions Recorded Confirmed Last Taken Type AtorvaSTATin [Lipitor] 40 mg PO QHS 03/28/20 03/28/20 Unknown History Bumetanide 2 mg PO BID 03/28/20 03/28/20 Unknown History Cyclobenzaprine [Flexeril] 10 mg PO QDAY PRN 03/28/20 03/28/20 Unknown History Furosemide [Lasix TAB] 40 mg PO BID 03/28/20 03/28/20 Unknown History Hydralazine HCl 75 mg PO TID 03/28/20 03/28/20 Unknown History ISOSORBIDE MONOnitrate [Imdur ER] 30 mg PO DAILY 03/28/20 03/28/20 Unknown History Sevelamer Carbonate [Renvela] 800 mg PO TID 03/28/20 03/28/20 Unknown History allopurinoL [Zyloprim] 300 mg PO QDAY 03/28/20 03/28/20 Unknown History amLODIPine [Norvasc] 10 mg PO DAILY 03/28/20 03/28/20 Unknown History carvediloL [Coreg] 25 mg PO BID 03/28/20 03/28/20 Unknown History glipiZIDE [Glucotrol] 10 mg PO BID 03/28/20 03/28/20 Unknown History predniSONE 10 mg PO QDAY 03/28/20 03/28/20 Unknown History Active Meds: Active Medications Amlodipine Besylate (Amlodipine) 10 mg PO DAILY [facility] Apixaban (Eliquis) 5 mg PO Q12HR [facility]; Protocol Carvedilol (Coreg) 25 mg PO Q12HR [facility] Dextrose (D50w (25gm) Syringe) 0 ml IV Q30MIN PRN; Protocol PRN Reason: Hypoglycemia Furosemide (Lasix) 40 mg IV BID@0600,1800 [facility] Last Admin: 03/28/20 06:29 Dose: Not Given Documented by: Hydralazine HCl (Apresoline) 75 mg PO Q8HR [facility] Nitroglycerin/Dextrose (Tridil Drip 50mg/250ml) 50 mg in 250 mls @ 3 mls/hr IV TITR [facility]; Protocol Last Titration: 03/28/20 06:45 Dose: 40 mcg/min, 12 mls/hr Documented by: Insulin Human Lispro (Humalog) 0 unit SUB-Q ACHS [facility]; Protocol Last Admin: 03/28/20 07:50 Dose: Not Given Documented by: Isosorbide Mononitrate (Imdur) 30 mg PO DAILY [facility] Magnesium Hydroxide (Milk Of Magnesia) 30 ml PO Q4H PRN PRN Reason: Constipation Morphine Sulfate (Morphine) 2 mg IV Q4H PRN PRN Reason: Pain, Moderate (4-6) Ondansetron HCl (Zofran) 4 mg IV Q8H PRN PRN Reason: Nausea And Vomiting Sodium Chloride (Sodium Chloride Flush Syringe 10 Ml) 10 ml IV BID [facility] Sodium Chloride (Sodium Chloride Flush Syringe 10 Ml) 10 ml IV PRN PRN PRN Reason: LINE FLUSH Physical Examination Vital signs: Vital Signs Temp Pulse Resp BP Pulse Ox 98.9 F 123 H 48 H 210/117 98 03/28/20 00:30 03/28/20 00:30 03/28/20 00:30 03/28/20 00:30 03/28/20 00:30 Results - Laboratory Findings CBC and BMP: 03/28/20 00:44 03/28/20 00:44 ABG ABG pH 7.224 pH Units (7.350-7.450) L 03/28/20 01:05 ABG pCO2 35.1 mm Hg 03/28/20 01:05 ABG pO2 153.4 mm Hg (80.0-90.0) H 03/28/20 01:05 ABG O2 Saturation 98.7 % (95.0-99.0) 03/28/20 01:05 PT/INR, D-dimer PT 15.6 Sec. (12.2-14.9) H 03/28/20 00:44 INR 1.26 (0.87-1.13) H 03/28/20 00:44 Abnormal lab findings: Abnormal Labs 03/28/20 03/28/20 03/28/20 00:44 00:44 00:44 RBC 2.87 L Hgb 9.2 L Hct 28.6 L MCV 100 H RDW 18.7 H [place] % (Auto) 11.0 H [place] # (Auto) 1.2 H PT 15.6 H INR 1.26 H ABG pH ABG pO2 ABG HCO3 ABG Base Excess ABG Hemoglobin Carbon Dioxide 11 L BUN 65 H Creatinine 4.7 H Glucose 118 H POC Glucose Lactic Acid Total Bilirubin 1.40 H Alkaline Phosphatase 260 H Troponin T 0.134 H* NT-Pro-B Natriuret Pep Total Protein 8.6 H HDL Cholesterol 62 H HCG, Quant 03/28/20 03/28/20 03/28/20 00:44 00:44 00:44 RBC Hgb Hct MCV RDW [place] % (Auto) [place] # (Auto) PT INR ABG pH ABG pO2 ABG HCO3 ABG Base Excess ABG Hemoglobin Carbon Dioxide BUN Creatinine Glucose POC Glucose Lactic Acid 5.20 H* Total Bilirubin Alkaline Phosphatase Troponin T NT-Pro-B Natriuret Pep 40797 H Total Protein HDL Cholesterol HCG, Quant 9.39 H 03/28/20 03/28/20 01:05 06:56 RBC Hgb Hct MCV RDW [place] % (Auto) [place] # (Auto) PT INR ABG pH 7.224 L ABG pO2 153.4 H ABG HCO3 14.2 L ABG Base Excess -12.4 L ABG Hemoglobin 8.2 L Carbon Dioxide BUN Creatinine Glucose POC Glucose 108 H Lactic Acid Total Bilirubin Alkaline Phosphatase Troponin T NT-Pro-B Natriuret Pep Total Protein HDL Cholesterol HCG, Quant Assessment and Plan 50 y/o morbidly obese female with hypertensive urgency and acute on chronic systolic/diastolic heart failure exacerbation with volume overload. 1. Restart Home meds 2. Stop Nitro drip 3. Wean Bipap to off 4. Will likely need Bipap at night as well given size 5. Continue diuresis given systolic heart failure and volume overload with acute respiratory failure.
--- NOTE | 2020-03-28 10:59 | Consultation ---
History of Present Illness Consult date: 03/28/20 Requesting physician: RAMIRO YEPEZ Consult reason: congestive heart failure, hypertension History of present illness: The pt is a 50-year-old female with a past medical history of HFrEF, CMP, LV thrombus, paroxysmal atrial fibrillation, CVA, CKD, anemia, HTN, DM. She has been seen by our practice on prior admission and reports she is regularly followed by [facility]. She presented with c/o sudden onset SOB overnight. She was placed on CPAP per EMS and is currently on BiPAP, CXR with pulmonary edema. Admission BP 210/117 for which pt was initiated on nitro gtt. She denies any chest pain, palpitations, n/v, diaphoresis, dizziness or syncope. Labwork is significant for BUN/Cr 65/4.7, H/H 9.2/28.6, trop 0.134, pro-BNP >25K. Admission ECG shows atrial fibrillation. Pt is noted to be back in NSR on evaluation. tte done at [facility] 06/2019 showed EF 40-45%, mod pulm HTN with RVSP 50mmHg, mild TR, no LV thrombus. tte done at [facility] 10/2014 showed EF 25-30%, mild LVH, thrombus in LV apex. Past History Past Medical History: diabetes, heart failure (EF 20 % in 2014.), hypertension, other (Obesity) Past Surgical History: Other (Tubal Ligation) Social history: no significant social history Family history: no significant family history Medications and Allergies Allergies Allergy/AdvReac Type Severity Reaction Status Date / Time meperidine HCl [From Demerol] Allergy Itching Verified 03/28/20 07:34 penicillin Allergy Unknown Verified 03/28/20 07:34 Home Medications Medication Instructions Recorded Confirmed Last Taken Type AtorvaSTATin [Lipitor] 40 mg PO QHS 03/28/20 03/28/20 Unknown History Bumetanide 2 mg PO BID 03/28/20 03/28/20 Unknown History Cyclobenzaprine [Flexeril] 10 mg PO QDAY PRN 03/28/20 03/28/20 Unknown History Furosemide [Lasix TAB] 40 mg PO BID 03/28/20 03/28/20 Unknown History Hydralazine HCl 75 mg PO TID 03/28/20 03/28/20 Unknown History ISOSORBIDE MONOnitrate [Imdur ER] 30 mg PO DAILY 03/28/20 03/28/20 Unknown History Sevelamer Carbonate [Renvela] 800 mg PO TID 03/28/20 03/28/20 Unknown History allopurinoL [Zyloprim] 300 mg PO QDAY 03/28/20 03/28/20 Unknown History amLODIPine [Norvasc] 10 mg PO DAILY 03/28/20 03/28/20 Unknown History carvediloL [Coreg] 25 mg PO BID 03/28/20 03/28/20 Unknown History glipiZIDE [Glucotrol] 10 mg PO BID 03/28/20 03/28/20 Unknown History predniSONE 10 mg PO QDAY 03/28/20 03/28/20 Unknown History Active Meds: Active Medications Amlodipine Besylate (Amlodipine) 10 mg PO DAILY [facility] Apixaban (Eliquis) 5 mg PO Q12HR [facility]; Protocol Carvedilol (Coreg) 25 mg PO Q12HR [facility] Dextrose (D50w (25gm) Syringe) 0 ml IV Q30MIN PRN; Protocol PRN Reason: Hypoglycemia Furosemide (Lasix) 40 mg IV BID@0600,1800 [facility] Last Admin: 03/28/20 06:29 Dose: Not Given Documented by: Hydralazine HCl (Apresoline) 75 mg PO Q8HR [facility] Nitroglycerin/Dextrose (Tridil Drip 50mg/250ml) 50 mg in 250 mls @ 3 mls/hr IV TITR [facility]; Protocol Last Titration: 03/28/20 06:45 Dose: 40 mcg/min, 12 mls/hr Documented by: Insulin Human Lispro (Humalog) 0 unit SUB-Q ACHS [facility]; Protocol Last Admin: 03/28/20 07:50 Dose: Not Given Documented by: Isosorbide Mononitrate (Imdur) 30 mg PO DAILY [facility] Magnesium Hydroxide (Milk Of Magnesia) 30 ml PO Q4H PRN PRN Reason: Constipation Morphine Sulfate (Morphine) 2 mg IV Q4H PRN PRN Reason: Pain, Moderate (4-6) Ondansetron HCl (Zofran) 4 mg IV Q8H PRN PRN Reason: Nausea And Vomiting Sodium Chloride (Sodium Chloride Flush Syringe 10 Ml) 10 ml IV BID [facility] Sodium Chloride (Sodium Chloride Flush Syringe 10 Ml) 10 ml IV PRN PRN PRN Reason: LINE FLUSH Review of Systems Constitutional: no fever, no chills, no sweats Ears, nose, mouth and throat: no ear pain, no nose pain, no sinus pressure, no sinus pain Cardiovascular: shortness of breath, dyspnea on exertion, high blood pressure, no chest pain, no palpitations, no rapid/irregular heart beat, no edema, no syncope, no lightheadedness Respiratory: shortness of breath, dyspnea on exertion, no cough, no congestion, no wheezing, no pain on inspiration Gastrointestinal: no abdominal pain, no nausea, no vomiting, no diarrhea, no constipation, no change in bowel habits Genitourinary Female: no pelvic pain, no flank pain, no dysuria, no urinary frequency, no urgency Musculoskeletal: no neck stiffness, no neck pain, no shooting arm pain, no arm numbness/tingling, no low back pain, no shooting leg pain Integumentary: no rash, no pruritis, no redness, no sores, no wounds Neurological: no head injury, no paralysis, no weakness, no parathesias, no numbness, no tingling, no seizures, no syncope Psychiatric: no anxiety Endocrine: no cold intolerance, no heat intolerance Hematologic/Lymphatic: no easy bruising, no easy bleeding Allergic/Immunologic: no urticaria Physical Examination Vital Signs Temp Pulse Resp BP Pulse Ox 98.9 F 123 H 48 H 210/117 98 03/28/20 00:30 03/28/20 00:30 03/28/20 00:30 03/28/20 00:30 03/28/20 00:30 General appearance: other (on BiPAP) HEENT: Positive: PERRL, Normocephaly, Mucus Membranes Moist Neck: Positive: neck supple, trachea midline Cardiac: Positive: Reg Rate and Rhythm, S1/S2 Lungs: Positive: Decreased Breath Sounds, Oxygen Neuro: Positive: Grossly Intact Abdomen: Negative: Tender Skin: Negative: Rash Musculoskeletal: No Pain Extremities: Absent: edema Results 03/28/20 00:44 03/28/20 00:44 Cardiac Enzymes 03/28/20 Range/Units 00:44 AST 23 (5-40) units/L Coagulation 03/28/20 Range/Units 00:44 PT 15.6 H (12.2-14.9) Sec. INR 1.26 H (0.87-1.13) Lipids 03/28/20 Range/Units 00:44 Triglycerides 120 (2-149) mg/dL Cholesterol 142 (50-199) mg/dL HDL Cholesterol 62 H (40-59) mg/dL Cholesterol/HDL Ratio 2.29 % CBC 03/28/20 Range/Units 00:44 WBC 11.0 (4.5-11.0) K/mm3 RBC 2.87 L (3.65-5.03) M/mm3 Hgb 9.2 L (10.1-14.3) gm/dl Hct 28.6 L (30.3-42.9) % Plt Count 256 (140-440) K/mm3 Lymph # (Auto) 2.2 (1.2-5.4) K/mm3 [place] # (Auto) 1.2 H (0.0-0.8) K/mm3 Eos # (Auto) 0.2 (0.0-0.4) K/mm3 Baso # (Auto) 0.1 (0.0-0.1) K/mm3 Comprehensive Metabolic Panel 03/28/20 Range/Units 00:44 Sodium 139 (137-145) mmol/L Potassium 4.8 (3.6-5.0) mmol/L Chloride 106.8 (98-107) mmol/L Carbon Dioxide 11 L (22-30) mmol/L BUN 65 H (7-17) mg/dL Creatinine 4.7 H (0.6-1.2) mg/dL Glucose 118 H (65-100) mg/dL Calcium 10.0 (8.4-10.2) mg/dL AST 23 (5-40) units/L ALT 21 (7-56) units/L Alkaline Phosphatase 260 H (35-129) units/L Total Protein 8.6 H (6.3-8.2) g/dL Albumin 4.4 (3.9-5) g/dL - Imaging and Cardiology Echo: report reviewed ([facility] 06/2019 showed EF 40-45%, mod pulm HTN with RVSP 50mmHg, mild TR, no LV thrombus. ) EKG: report reviewed, image reviewed EKG interpretations - Telemetry EKG Rhythm: Sinus Rhythm - EKG Supraventricular dysrhythmia: atrial fibrillation Assessment and Plan Optimize anti-hypertensive regimen and wean off nitro gtt. Wean O2 per pulmonary. Agree with IV lasix BID, nephrology consultation pending. CE elevation appears c/w NSTEMI type II. Cont to trend [place] and f/u ECG in AM. F/u t te. Resume home Eliquis. Will follow. The patient has been seen in conjunction with Dr. Banks who agrees with the assessment and plan of care. - Patient Problems (1) Acute HFrEF (heart failure with reduced ejection fraction) Current Visit: Yes Status: Acute (2) Cardiomyopathy Current Visit: Yes Status: Chronic (3) Acute respiratory failure Current Visit: Yes Status: Acute (4) Flash pulmonary edema Current Visit: Yes Status: Acute (5) Hypertensive emergency Current Visit: Yes Status: Acute (6) Paroxysmal atrial fibrillation Current Visit: Yes Status: Chronic (7) Acute on chronic renal failure Current Visit: Yes Status: Acute (8) NSTEMI (non-ST elevated myocardial infarction) Current Visit: Yes Status: Acute Plan to address problem: suspect type II (9) Anemia Current Visit: Yes Status: Acute (10) Lactic acidosis Current Visit: Yes Status: Acute (11) Diabetes mellitus Current Visit: Yes Status: Chronic (12) History of CVA (cerebrovascular accident) Current Visit: Yes Status: Chronic (13) Left ventricular apical thrombus Current Visit: No Status: Chronic Plan to address problem: 2015
[2020-03-28] MEDS: carvediloL 25 MG TAB PO SCH ×2 (11:56→23:10)
[2020-03-28] MEDS: amLODIPine 10 MG TAB PO SCH (11:57)
[2020-03-28] MEDS ORDERED: APIXABAN 5 MG TAB ONE (12:57)
[2020-03-28] MEDS: APIXABAN 5 MG TAB PO SCH ×2 (13:02→23:10)
[2020-03-28] MEDS ORDERED: hydrALAZINE 25 MG TAB ONE (14:39)
[2020-03-28] MEDS: hydrALAZINE 25 MG TAB PO SCH ×2 (14:42→23:11)
--- NOTE | 2020-03-28 14:56 | Consultation ---
History of Present Illness - Reason for Consult Consult date: 03/28/20 acute renal failure, chronic renal failure - History of Present Illness This patient is a 50 YO AAF with known history of Morbid obesity, Hypertension, DM type 2, TIA, CHF with ejection fraction of 20% in 2015, LV thrombus, paroxysmal atrial fibrillation, CVA, Anemia and CKD stage 4-5 who presented to [facility] ED 03/28 via EMS complaining of shortness of breath for the past few days. Patient admits N & V intermittently for the past few days. She denies any fever, chills, chest pain, diaphoresis, diarrhea, abdominal pain, hematuria, dysuria, leg swelling, headache or dizziness. Patient denies any sick contacts and no recent travel. Patient was placed on CPAP by EMS in route to the hospital. Initial BP was 240/117. Labs significant for Creat 4.7, BUN 65, Bicarb 11, Lactate 5.2, elevated Troponin and BNP. CXR showed Cardiomegaly and mild to moderate vascular congestion. In the ED patient was started on nitrogly cerin drip, given IV Lasix and subsequently placed on BiPAP. Patient has been admitted for CHF exacerbation, hypertensive emergency and renal insufficiency. Nephrology was consulted for further evaluation of renal insufficiency. Currently patient is not followed by any Med Spec. Past History Past Medical History: atrial fib, anemia, diabetes, heart failure (EF 20 % in 2015.), hypertension, hyperlipidemia, renal failure, other (Obesity) Past Surgical History: Other (Tubal Ligation) Social history: no significant social history Family history: no significant family history Medications and Allergies Allergies Allergy/AdvReac Type Severity Reaction Status Date / Time meperidine HCl [From Demerol] Allergy Itching Verified 03/28/20 07:34 penicillin Allergy Unknown Verified 03/28/20 07:34 Home Medications Medication Instructions Recorded Confirmed Last Taken Type AtorvaSTATin [Lipitor] 40 mg PO QHS 03/28/20 03/28/20 Unknown History Bumetanide 2 mg PO BID 03/28/20 03/28/20 Unknown History Cyclobenzaprine [Flexeril] 10 mg PO QDAY PRN 03/28/20 03/28/20 Unknown History Furosemide [Lasix TAB] 40 mg PO BID 03/28/20 03/28/20 Unknown History Hydralazine HCl 75 mg PO TID 03/28/20 03/28/20 Unknown History ISOSORBIDE MONOnitrate [Imdur ER] 30 mg PO DAILY 03/28/20 03/28/20 Unknown History Sevelamer Carbonate [Renvela] 800 mg PO TID 03/28/20 03/28/20 Unknown History allopurinoL [Zyloprim] 300 mg PO QDAY 03/28/20 03/28/20 Unknown History amLODIPine [Norvasc] 10 mg PO DAILY 03/28/20 03/28/20 Unknown History carvediloL [Coreg] 25 mg PO BID 03/28/20 03/28/20 Unknown History glipiZIDE [Glucotrol] 10 mg PO BID 03/28/20 03/28/20 Unknown History predniSONE 10 mg PO QDAY 03/28/20 03/28/20 Unknown History Active Meds: Active Medications Amlodipine Besylate (Amlodipine) 10 mg PO DAILY [facility] Last Admin: 03/28/20 11:57 Dose: 10 mg Documented by: Apixaban (Eliquis) 5 mg PO Q12HR [facility]; Protocol Last Admin: 03/28/20 13:02 Dose: 5 mg Documented by: Carvedilol (Coreg) 25 mg PO Q12HR [facility] Last Admin: 03/28/20 11:56 Dose: 25 mg Documented by: Dextrose (D50w (25gm) Syringe) 0 ml IV Q30MIN PRN; Protocol PRN Reason: Hypoglycemia Furosemide (Lasix) 40 mg IV BID@0600,1800 [facility] Last Admin: 03/28/20 06:29 Dose: Not Given Documented by: Hydralazine HCl (Apresoline) 75 mg PO Q8HR [facility] Last Admin: 03/28/20 14:42 Dose: 75 mg Documented by: Nitroglycerin/Dextrose (Tridil Drip 50mg/250ml) 50 mg in 250 mls @ 3 mls/hr IV TITR [facility]; Protocol Last Titration: 03/28/20 06:45 Dose: 40 mcg/min, 12 mls/hr Documented by: Insulin Human Lispro (Humalog) 0 unit SUB-Q ACHS [facility]; Protocol Last Admin: 03/28/20 12:52 Dose: Not Given Documented by: Isosorbide Mononitrate (Imdur) 30 mg PO DAILY [facility] Last Admin: 12/01/20 11:57 Dose: 30 mg Documented by: Magnesium Hydroxide (Milk Of Magnesia) 30 ml PO Q4H PRN PRN Reason: Constipation Morphine Sulfate (Morphine) 2 mg IV Q4H PRN PRN Reason: Pain, Moderate (4-6) Ondansetron HCl (Zofran) 4 mg IV Q8H PRN PRN Reason: Nausea And Vomiting Sodium Chloride (Sodium Chloride Flush Syringe 10 Ml) 10 ml IV BID IRVIN Last Admin: 03/28/20 12:53 Dose: 10 ml Documented by: Sodium Chloride (Sodium Chloride Flush Syringe 10 Ml) 10 ml IV PRN PRN PRN Reason: LINE FLUSH Review of Systems Constitutional: no weight loss, no weight gain, no fever, no chills, no anorexia, no fatigue, no weakness, no poor appetite Breasts: deferred Cardiovascular: orthopnea, shortness of breath, dyspnea on exertion, high blood pressure, decreased exercise tolerance, no chest pain, no edema, no syncope, no lightheadedness, no leg edema Respiratory: shortness of breath, dyspnea on exertion, no cough, no hemoptysis Gastrointestinal: nausea, vomiting, no abdominal pain, no diarrhea, no melena, no hematochezia Genitourinary Female: no dysuria, no hematuria Integumentary: no rash, no wounds, no jaundice Neurological: no paralysis, no weakness, no seizures, no syncope, no change in mentation, no confusion Exam - Vital Signs Vital signs: Vital Signs Temp Pulse Resp BP Pulse Ox 98.9 F 123 H 48 H 210/117 98 03/28/20 00:30 03/28/20 00:30 03/28/20 00:30 03/28/20 00:30 03/28/20 00:30 Results - Lab Results 03/28/20 00:44 03/28/20 00:44 Most recent lab results ABG pH 7.224 pH Units (7.350-7.450) L 03/28/20 01:05 ABG pCO2 35.1 mm Hg 03/28/20 01:05 ABG pO2 153.4 mm Hg (80.0-90.0) H 03/28/20 01:05 ABG HCO3 14.2 mmol/L (20.0-26.0) L 03/28/20 01:05 ABG O2 Saturation 98.7 % (95.0-99.0) 03/28/20 01:05 Calcium 10.0 mg/dL (8.4-10.2) 03/28/20 00:44 Magnesium 2.20 mg/dL (1.7-2.3) 03/28/20 00:44 Assessment and Plan 1. CKD stage 5 vs Acute kidney injury: Patient was diagnosed with CKD stage 4-5 in june 2019. Most likely progressive CKD in the setting of poorly controlled HTN, DM and CHF. Suspect CKD progressed to CKD. DAVID, ANCA, Complements, GBM Ab and SPEP were negative. Urine studies and Renal US ordered. Monitor renal function. GFR is low. Renal prognosis is guarded to poor. Avoid nephrotoxic agents. Meds dosage based on GFR. 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 Explained patient that she may need dialysis during this hospitalization. 2. FEN: Volume overload, IV diuretics. Anion-gap metabolic acidosis, 2/2 lactic acidosis and CKD/LELIA, monitor. Monitor lytes and volume status. 3. Acute HFrEF (heart failure with reduced ejection fraction): Beta blockers. Followed by Cards. 4. NSTEMI. 5. Acute respiratory failure: 2/2 pulmonary edema. Diuretics. Supplemental O2. 6. Hypertensive emergency: Nitro drip. Resume home meds. BP is improving. 7. Paroxysmal atrial fibrillation: Monitor. 8. Anemia, POA: Likely 2/2 CKD. Monitor. 9. DM type 2: Monitor bl glucose. Subjective: Patient was seen and examined at the bedside. Examination: General appearance: morbidly obese, well-developed, appears stated age, no distress HEENT: TESSA Neck: trachea midline Respiratory: decreased breath sounds, rales heard Heart: regular, S1S2, no murmur Gastrointestinal: soft, obese, normoactive bowel sounds, NT, Integumentary: no rash, warm and dry Neurologic: alert, oriented, non-focal Ext: no edema
[2020-03-28] MEDS ORDERED: FUROSEMIDE 40 MG/4 ML INJ ONE (18:23)
[2020-03-29] MEDS: INSULIN LISPRO 100 UNIT/ML VIAL 3 mL SUB-Q SCH ×5 (01:33→21:59)
[2020-03-29] MEDS ORDERED: VANCOMYCIN 2,000 MG in SODIUM CHLORIDE 0.9% 500 ML 500 ML IV ONE (05:00)
[2020-03-29] MEDS ORDERED: VANCOMYCIN PHARMACY TO DOSE IV SCH (05:00)
[2020-03-29 05:25] LABS: Basophils # (Auto) 0.1 K/mm3 (0.0-0.1); Eosinophils % (Auto) 0.5 % (0.0-4.3); Hematocrit 21.9 % (30.3-42.9); Hemoglobin 7.3 gm/dl (10.1-14.3); Lymphocytes % (Auto) 12.7 % (13.4-35.0); Mean Corpuscular HGB Conc 33 % (30-34); Mean Corpuscular Volume 98 fl (79-97); Monocytes # (Auto) 0.8 K/mm3 (0.0-0.8); Platelet Count 192 K/mm3 (140-440); Red Blood Count 2.23 M/mm3 (3.65-5.03); Red Cell Distribution Width 18.4 % (13.2-15.2)
[2020-03-29 05:30] LABS: INR 1.64 (0.87-1.13)
[2020-03-29 05:45] LABS: Calcium 8.8 mg/dL (8.4-10.2)
[2020-03-29] MEDS: FUROSEMIDE 40 MG/4 ML INJ IV SCH (06:08)
[2020-03-29] MEDS: hydrALAZINE 25 MG TAB PO SCH ×3 (06:08→22:11)
[2020-03-29 06:44] LABS: Bacteria,Urine 1+ /HPF (Negative); Bilirubin,Urine NEG (Negative); Blood,Urine SM (Negative); Color,Urine Yellow (Yellow); Urobilinogen,Urine < 2.0 mg/dL (<2.0)
[2020-03-29 06:48] LABS: Creatinine,Urine 46.8 mg/dL (0.1-20.0)
--- NOTE | 2020-03-29 07:49 | Ultrasound Report ---
ULTRASOUND RENAL INDICATION / CLINICAL INFORMATION: Acute renal failure.. COMPARISON: None available. FINDINGS: RIGHT KIDNEY: Length = 11.7 cm. [normal > 9 cm] - Parenchymal Thickness = 1.7 cm. [normal > 1.5 cm] - Echogenicity: Increased - Hydronephrosis: None. - Cyst or mass: No significant abnormality. - Stones: None seen. LEFT KIDNEY: Length = 10.1 cm. [normal > 9 cm] - Parenchymal Thickness = 2.3 cm. [normal > 1.5 cm] - Echogenicity: Increased - Hydronephrosis: None. - Cyst or mass: No significant abnormality. - Stones: None seen. URINARY BLADDER: No significant abnormality. FREE FLUID: None. ADDITIONAL FINDINGS: None. IMPRESSION: Findings consistent with medical renal disease. No focal renal lesion or hydronephrosis. Signer Name: Kareem Ruiz Jr, MD Signed: 03/29/2020 7:44 AM Workstation Name: [id number]
[2020-03-29] MEDS ORDERED: SODIUM CHLORIDE 0.9% 500 ML 500 ML IV NR ×2 (09:25→16:00)
--- NOTE | 2020-03-29 09:28 | Progress Note ---
Assessment and Plan Assessment and plan: --Anemia; Hb 9.2-7.3 patient on Eliquis for LV thrombus Hold Eliquis, transfuse 1 unit PRBC Stool for occult blood, closely monitor H&H --LV thrombus; On Eliquis, hold Eliquis today Due to sudden drop in H&H from 9.2-7.3 --Acute pulmonary edema: Current Visit: Yes Status: Acute Plan to address problem: Patient has known history of CHF with ejection fraction of 20% in 2015. Due to acute on chronic systolic congestive heart failure Antifailure medications diuretic beta-blockers No MODESTO inhibitors in view of acute kidney injury Input output monitoring Daily weights Fluid restriction low-sodium diet Follow echocardiogram for LV function ejection fraction --Acute on chronic mild systolic CHF[EF 40 to 45% 03/28/2020] Current Visit: Yes Status: Acute Plan to address problem: Continue current antifailure medications Cardiology following -- Hypertensive emergency Current Visit: Yes Status: Acute . Plan to address problem: Patient placed on nitroglycerin drip. BP reasonable level titrate and DC the drip --Acute kidney injury Current Visit: Yes Status: Acute Plan to address problem: Vasomotor nephropathy , Closely monitor renal function, avoid nephrotoxin Nephrology consult --Type II diabetes mellitus Current Visit: No Status: Chronic Plan to address problem: Accu-Chek sliding scale coverage ADA diet insulin as needed --Morbid obesity; BMI 40.0 Current Visit: Yes Status: Acute . Plan to address problem: Advised diet modification exercise as tolerated and weight reduction, When medically stable --DVT prophylaxis Current Visit: Yes Status: Acute . Plan to address problem: Patient placed on subcutaneous heparin. --Full code status Current Visit: Yes Status: Acute We will closely monitor the patient and adjust the management as needed We will titrate and DC nitroglycerin drip And downgrade patient's admission from ICU to telemetry Plan of care reviewed with the patient and her nurse AAnam. labs requested Critical care time 45 minutes The high probability of a clinically significant, sudden or life threatening deterioration of the [cardiac, pulmonary, metabolic ,renal, neuro] system(s) required my full and direct attention, intervention and personal management. The aggregate critical care time was [45] minutes. This time is in addition to time spent performing reported procedures but includes the foll owing: [x] Data Review and interpretation [x] Patient assessment and monitoring of vital signs [x] Documentation [x] Medication orders and management Hospitalist Physical - Constitutional Vitals: Temp Pulse Resp BP Pulse Ox 98.6 F 91 H 20 132/60 96 03/29/20 03:33 03/29/20 06:08 03/29/20 03:33 03/29/20 06:08 03/29/20 03:33 General appearance: Present: mild distress, well-nourished, obese (Morbidly obese) HEART Score - HEART Score Troponin: Troponin T 0.153 ng/mL (0.00-0.029) H* 03/29/20 05:01 Results - Labs CBC & Chem 7: 03/29/20 05:01 03/29/20 05:01 Labs: Laboratory Last Values WBC 7.5 K/mm3 (4.5-11.0) 03/29/20 05:01 RBC 2.23 M/mm3 (3.65-5.03) L 03/29/20 05:01 Hgb 7.3 gm/dl (10.1-14.3) L 03/29/20 05:01 Hct 21.9 % (30.3-42.9) L D 03/29/20 05:01 MCV 98 fl (79-97) H 03/29/20 05:01 MCH 33 pg (28-32) H 03/29/20 05:01 MCHC 33 % (30-34) 03/29/20 05:01 RDW 18.4 % (13.2-15.2) H 03/29/20 05:01 Plt Count 192 K/mm3 (140-440) 03/29/20 05:01 Lymph % (Auto) 12.7 % (13.4-35.0) L 03/29/20 05:01 [place] % (Auto) 11.0 % (0.0-7.3) H 03/29/20 05:01 Eos % (Auto) 0.5 % (0.0-4.3) 03/29/20 05:01 Baso % (Auto) 1.0 % (0.0-1.8) 03/29/20 05:01 Lymph # (Auto) 1.0 K/mm3 (1.2-5.4) L 03/29/20 05:01 [place] # (Auto) 0.8 K/mm3 (0.0-0.8) 03/29/20 05:01 Eos # (Auto) 0.0 K/mm3 (0.0-0.4) 03/29/20 05:01 Baso # (Auto) 0.1 K/mm3 (0.0-0.1) 03/29/20 05:01 Seg Neutrophils % 74.8 % (40.0-70.0) H 03/29/20 05:01 Seg Neutrophils # 5.6 K/mm3 (1.8-7.7) 03/29/20 05:01 PT 19.3 Sec. (12.2-14.9) H 03/29/20 05:01 INR 1.64 (0.87-1.13) H 03/29/20 05:01 ABG pH 7.224 pH Units (7.350-7.450) L 03/28/20 01:05 ABG pCO2 35.1 mm Hg 03/28/20 01:05 ABG pO2 153.4 mm Hg (80.0-90.0) H 03/28/20 01:05 ABG HCO3 14.2 mmol/L (20.0-26.0) L 03/28/20 01:05 ABG O2 Saturation 98.7 % (95.0-99.0) 03/28/20 01:05 ABG O2 Content 11.5 (0.0-44) 03/28/20 01:05 ABG Base Excess -12.4 mmol/L (-2.0-3.0) L 03/28/20 01:05 ABG Hemoglobin 8.2 gm/dl (12.0-16.0) L 03/28/20 01:05 ABG Carboxyhemoglobin 1.6 % (0.0-5.0) 03/28/20 01:05 ABG Methemoglobin 0.4 % (0.0-1.5) 03/28/20 01:05 Oxyhemoglobin 96.7 % (95.0-99.0) 03/28/20 01:05 FiO2 100 % 03/28/20 01:05 Sodium 143 mmol/L (137-145) 03/29/20 05:01 Potassium 4.1 mmol/L (3.6-5.0) 03/29/20 05:01 Chloride 112.0 mmol/L (98-107) H 03/29/20 05:01 Carbon Dioxide 14 mmol/L (22-30) L 03/29/20 05:01 Anion Gap 21 mmol/L 03/29/20 05:01 BUN 71 mg/dL (7-17) H 03/29/20 05:01 Creatinine 5.3 mg/dL (0.6-1.2) H 03/29/20 05:01 Estimated GFR 10 ml/min 03/29/20 05:01 BUN/Creatinine Ratio 13 % 03/29/20 05:01 Glucose 112 mg/dL (65-100) H 03/29/20 05:01 POC Glucose 118 mg/dL (70-105) H 03/28/20 23:58 Lactic Acid 5.20 mmol/L (0.7-2.0) H* 03/28/20 00:44 Calcium 8.8 mg/dL (8.4-10.2) 03/29/20 05:01 Phosphorus 4.60 mg/dL (2.5-4.5) H 03/29/20 05:01 Magnesium 2.20 mg/dL (1.7-2.3) 03/28/20 00:44 Total Bilirubin 1.40 mg/dL (0.1-1.2) H 03/28/20 00:44 AST 23 units/L (5-40) 03/28/20 00:44 ALT 21 units/L (7-56) 03/28/20 00:44 Alkaline Phosphatase 260 units/L (35-129) H 03/28/20 00:44 Total Creatine Kinase 134 units/L (30-135) 03/28/20 00:44 Troponin T 0.153 ng/mL (0.00-0.029) H* 03/29/20 05:01 NT-Pro-B Natriuret Pep 89295 pg/mL (0-450) H 03/28/20 00:44 Total Protein 8.6 g/dL (6.3-8.2) H 03/28/20 00:44 Albumin 4.4 g/dL (3.9-5) 03/28/20 00:44 Albumin/Globulin Ratio 1.0 % 03/28/20 00:44 Triglycerides 120 mg/dL (2-149) 03/28/20 00:44 Cholesterol 142 mg/dL (50-199) 03/28/20 00:44 LDL Cholesterol Direct 67 mg/dL (50-130) 03/28/20 00:44 HDL Cholesterol 62 mg/dL (40-59) H 03/28/20 00:44 Cholesterol/HDL Ratio 2.29 % 03/28/20 00:44 HCG, Quant 9.39 mIU/mL (0-4) H 03/28/20 00:44 PTH Intact 573.4 pg/mL (15-65) H 03/29/20 05:01 Urine Color Yellow (Yellow) 03/29/20 06:21 Urine Turbidity Clear (Clear) 03/29/20 06:21 Urine pH 5.0 (5.0-7.0) 03/29/20 06:21 Ur Specific [place] 1.010 (1.003-1.030) 03/29/20 06:21 Urine Protein 100 mg/dl mg/dL (Negative) 03/29/20 06:21 Urine Glucose (UA) Neg mg/dL (Negative) 03/29/20 06:21 Urine Ketones Neg mg/dL (Negative) 03/29/20 06:21 Urine Blood Sm (Negative) 03/29/20 06:21 Urine Nitrite Neg (Negative) 03/29/20 06:21 Urine Bilirubin Neg (Negative) 03/29/20 06:21 Urine Urobilinogen < 2.0 mg/dL (<2.0) 03/29/20 06:21 Ur Leukocyte Esterase Lg (Negative) 03/29/20 06:21 Urine WBC (Auto) 74.0 /HPF (0.0-6.0) H 03/29/20 06:21 Urine RBC (Auto) 8.0 /HPF (0.0-6.0) 03/29/20 06:21 U Epithel Cells (Auto) 1.0 /HPF (0-13.0) 03/29/20 06:21 Urine Bacteria (Auto) 1+ /HPF (Negative) 03/29/20 06:21 Urine Creatinine 46.8 mg/dL (0.1-20.0) H 03/29/20 06:21 Urine Sodium 95 mmol/L 03/29/20 06:21 Microbiology: Microbiology 03/28/20 01:12 Peripheral/Venous Blood Culture - Preliminary NO GROWTH AFTER 24 HOURS 03/28/20 01:12 Peripheral/Venous Blood Culture - Preliminary - Diagnostic Impressions Diagnostic Impressions: Echocardiogram 03/28/20 03:36 Transthoracic Echocardiogram Indication: Dyspnea BP: 164/87 HR: 80 Conclusions *Mild global hypokinesis of the left ventricle is observed. *The estimated ejection fraction is 40-45%. *Abnormal left ventricular diastolic filling is observed, consistent with impaired relaxation. *Mild concentric left ventricular hypertrophy is observed. *The right ventricle is mild to moderately dilated. *The right ventricular global systolic function is mildly reduced. *There is mild tricuspid regurgitation. *The right ventricular systolic pressure is calculated at 62 mmHg. *There is trace of mitral regurgitation. *There is no evidence of aortic regurgitation. Findings Left Ventricle: The left ventricular chamber size is normal. Mild concentric left ventricular hypertrophy is observed. Mild global hypokinesis of the left ventricle is observed. Global left ventricular systolic function is mildly decreased. The estimated ejection fraction is 40-45%. Abnormal left ventricular diastolic filling is observed, consistent with impaired relaxation. Left Atrium: The left atrium is mildly dilated. Right Ventricle: The right ventricle is mild to moderately dilated. The right ventricular global systolic function is mildly reduced. Right Atrium: The right atrial cavity size is normal. Aortic Valve: Mild aortic leaflet calcification is visualized. There is no evidence of aortic regurgitation. Mitral Valve: The mitral valve leaflets are mildly thickened. There is trace of mitral regurgitation. Tricuspid Valve: The tricuspid valve leaflets are normal. There is mild tricuspid regurgitation. The right ventricular systolic pressure is calculated at 62 mmHg. Pulmonic Valve: The pulmonic valve is not well visualized. There is trace pulmonic regurgitation. Pericardium: There is no pericardial effusion. Aorta: The aorta appears normal. Venous: The inferior vena cava is dilated. Measurements Chambers 2D Name Value Normal Range IVSd (2D) 1.33 cm (0.6 - 1.1) LVPWd (2D) 1.28 cm (0.6 - 1.1) LVIDd (2D) 5.31 cm (3.7 - 5.6) LVIDs (2D) 4.23 cm (2 - 3.8) LV FS (2D) 20.23 % - EF Teichholz (2D) 41.02 % - Ao root diameter (2D) 2.49 cm (2 - 3.7) Volumes/Mass Name Value Normal Range LA ESV SP 4CH (A/L) 55.43 ml - LA ESV SP 2CH (A/L) 86.15 ml - LA ESV BP (A/L) 69.87 ml - LA ESV BP (A/L) index 33.43 ml/m2 - LA ESV SP 4CH (MOD) 50.87 ml - LA ESV SP 2CH (MOD) 82.63 ml - LA ESV BP (MOD) 65.33 ml - LA ESV BP (MOD) index 31.26 ml/m2 - Diastolic/Systolic Function Name Value Normal Range MV E-wave Vmax 0.91 m/sec - MV deceleration time 165.81 msec - MV A-wave Vmax 0.45 m/sec - MV E:A ratio 1.99 ratio - Aortic Valve Name Value Normal Range AV Vmax 1.02 m/sec - AV VTI 19.83 cm - AV peak gradient 4.18 mmHg - AV mean gradient 2.2 mmHg - LVOT diameter 2.21 cm - LVOT Vmax 0.91 m/sec - LVOT VTI 17.49 cm - LVOT peak gradient 3.28 mmHg - LVOT mean gradient 1.63 mmHg - SV LVOT 66.86 ml - OLGA LIDIA (continuity Vmax) 3.39 cm2 - OLGA LIDIA (continuity VTI) 3.37 cm2 - Ascending Ao 2.9 cm - Tricuspid Valve Name Value Normal Range TR Vmax 3.66 m/sec - TR peak gradient 54 mmHg - RAP 8 mmHg - RVSP 62 mmHg - IVC diameter 2.88 cm (1.2 - 2.3) Pulmonic Valve/Qp:Qs Name Value Normal Range PV Vmax 0.65 m/sec - PV peak gradient 1.67 mmHg - MT end-diastolic Vmax 0.66 m/sec - PV acceleration time 91.34 msec - Motta/IV: Voiding Method Toilet IV Catheter Type [Right INT / Saline Lock Antecubital] Active Medications - Current Medications Current Medications: Generic Name Dose Route Start Last Admin Trade Name Freq PRN Reason Stop Dose Admin Amlodipine Besylate 10 mg 03/28/20 10:00 03/28/20 11:57 Amlodipine PO 10 mg DAILY IRVIN Administration Carvedilol 25 mg 03/28/20 10:00 03/28/20 23:10 Coreg PO 25 mg Q12HR IRVIN Administration Dextrose 0 ml 03/28/20 03:29 D50w (25gm) Syringe IV Q30MIN PRN Hypoglycemia Protocol Furosemide 40 mg 03/28/20 06:00 03/29/20 06:08 Lasix IV 40 mg BID@0600,1800 IRVIN Administration Hydralazine HCl 75 mg 03/28/20 14:00 03/29/20 06:08 Apresoline PO 75 mg Q8HR IRVIN Administration Sodium Chloride 500 mls @ 0 mls/hr 03/29/20 09:25 Nacl 0.9% 500 Ml IV 03/29/20 09:26 ONCE ONE As Directed Insulin Human Lispro 0 unit 03/28/20 07:30 03/29/20 01:33 Humalog SUB-Q Not Given ACHS IRVIN Protocol Isosorbide Mononitrate 30 mg 03/28/20 10:00 03/28/20 11:57 Imdur PO 30 mg DAILY IRVIN Administration Magnesium Hydroxide 30 ml 03/28/20 03:29 Milk Of Magnesia PO Q4H PRN Constipation Morphine Sulfate 2 mg 03/28/20 03:29 Morphine IV Q4H PRN Pain, Moderate (4-6) Ondansetron HCl 4 mg 03/28/20 03:29 Zofran IV Q8H PRN Nausea And Vomiting Sodium Chloride 10 ml 03/28/20 10:00 03/28/20 23:11 Sodium Chloride Flush Syringe 10 Ml IV 10 ml BID IRVIN Administration Sodium Chloride 10 ml 03/28/20 03:29 03/29/20 06:11 Sodium Chloride Flush Syringe 10 Ml IV 10 ml PRN PRN Administration LINE FLUSH Nutrition/Malnutrition Assess - Dietary Evaluation Nutrition/Malnutrition Findings: Nutrition Notes Start: 03/28/20 12:54 Freq: Status: Active Protocol: Document 03/28/20 12:54 EN (Rec: 03/28/20 12:59 EN [id number]) Co-Sign 03/28/20 12:54 NHALL Nutrition Notes Need for Assessment generated from: MD Order,Education Initial or Follow up Brief Note Current Diagnosis Diabetes,Hypertension,Heart Failure,Respiratory Failure Other Pertinent Diagnosis Pulmonary Embolism, TIA Current Diet Consistent CHO/Cardiac Subjective/Other Information MD consult for diet education. Pt on hold in ED. Pt admitted to ED with BP of 240/117 Nutrition Intervention Follow-Up By: 03/29/20 Additional Comments F/u for diet education needs
[2020-03-29] MEDS ORDERED: ACETAMINOPHEN 325 MG TAB ONE (09:31)
[2020-03-29] MEDS: carvediloL 25 MG TAB PO SCH ×2 (09:38→22:10)
[2020-03-29] MEDS: amLODIPine 10 MG TAB PO SCH (09:38)
--- NOTE | 2020-03-29 10:17 | Progress Note ---
Assessment and Plan 50 y/o morbidly obese female with hypertensive urgency and acute on chronic systolic/diastolic heart failure exacerbation with volume overload. 1. Wean Fio2 for sats >88% 2. Will need ambulatory test prior to discharge to assess oxygen need if any 3. follow up cardiology recs 4. Suggest continued diuresis as this appears to have helped her her. Subjective Date of service: 03/29/20 Interval history: No acute events. Down to nasal cannula. Objective Vital Signs - 12hr 03/28/20 03/28/20 03/28/20 22:43 23:10 23:11 Temperature 97.6 F Pulse Rate 95 H 95 H 95 H Respiratory 20 Rate Blood Pressure 147/78 147/78 147/78 O2 Sat by Pulse 100 Oximetry 03/29/20 03/29/20 03/29/20 03:33 06:08 09:25 Temperature 98.6 F Pulse Rate 91 H 91 H 94 H Respiratory 20 18 Rate Blood Pressure 132/60 132/60 150/71 O2 Sat by Pulse 96 91 Oximetry 03/29/20 09:36 Temperature 101 F H Pulse Rate Respiratory Rate Blood Pressure O2 Sat by Pulse Oximetry CBC and BMP: 03/30/20 05:44 03/30/20 05:44 ABG, PT/INR, D-dimer: ABG ABG pH 7.224 pH Units (7.350-7.450) L 03/28/20 01:05 ABG pCO2 35.1 mm Hg 03/28/20 01:05 ABG pO2 153.4 mm Hg (80.0-90.0) H 03/28/20 01:05 ABG O2 Saturation 98.7 % (95.0-99.0) 03/28/20 01:05 PT/INR, D-dimer PT 19.3 Sec. (12.2-14.9) H 03/29/20 05:01 INR 1.64 (0.87-1.13) H 03/29/20 05:01 Abnormal lab findings: Abnormal Labs 03/28/20 03/28/20 03/28/20 00:44 00:44 00:44 RBC 2.87 L Hgb 9.2 L Hct 28.6 L MCV 100 H MCH RDW 18.7 H Lymph % (Auto) Leslie % (Auto) 11.0 H Lymph # (Auto) [place] # (Auto) 1.2 H Seg Neutrophils % PT 15.6 H INR 1.26 H ABG pH ABG pO2 ABG HCO3 ABG Base Excess ABG Hemoglobin Chloride Carbon Dioxide 11 L BUN 65 H Creatinine 4.7 H Glucose 118 H POC Glucose Lactic Acid Phosphorus Total Bilirubin 1.40 H Alkaline Phosphatase 260 H Troponin T 0.134 H* NT-Pro-B Natriuret Pep Total Protein 8.6 H HDL Cholesterol 62 H HCG, Quant PTH Intact Urine WBC (Auto) Urine Creatinine 03/28/20 03/28/20 03/28/20 00:44 00:44 00:44 RBC Hgb Hct MCV MCH RDW Lymph % (Auto) Leslie % (Auto) Lymph # (Auto) [place] # (Auto) Seg Neutrophils % PT INR ABG pH ABG pO2 ABG HCO3 ABG Base Excess ABG Hemoglobin Chloride Carbon Dioxide BUN Creatinine Glucose POC Glucose Lactic Acid 5.20 H* Phosphorus Total Bilirubin Alkaline Phosphatase Troponin T NT-Pro-B Natriuret Pep 95341 H Total Protein HDL Cholesterol HCG, Quant 9.39 H PTH Intact Urine WBC (Auto) Urine Creatinine 03/28/20 03/28/20 03/28/20 01:05 06:56 12:48 RBC Hgb Hct MCV MCH RDW Lymph % (Auto) Leslie % (Auto) Lymph # (Auto) Leslie # (Auto) Seg Neutrophils % PT INR ABG pH 7.224 L ABG pO2 153.4 H ABG HCO3 14.2 L ABG Base Excess -12.4 L ABG Hemoglobin 8.2 L Chloride Carbon Dioxide BUN Creatinine Glucose POC Glucose 108 H 123 H Lactic Acid Phosphorus Total Bilirubin Alkaline Phosphatase Troponin T NT-Pro-B Natriuret Pep Total Protein HDL Cholesterol HCG, Quant PTH Intact Urine WBC (Auto) Urine Creatinine 03/28/20 03/28/20 03/29/20 16:29 23:58 05:01 RBC 2.23 L Hgb 7.3 L Hct 21.9 L D MCV 98 H MCH 33 H RDW 18.4 H Lymph % (Auto) 12.7 L Leslie % (Auto) 11.0 H Lymph # (Auto) 1.0 L Leslie # (Auto) Seg Neutrophils % 74.8 H PT INR ABG pH ABG pO2 ABG HCO3 ABG Base Excess ABG Hemoglobin Chloride Carbon Dioxide BUN Creatinine Glucose POC Glucose 123 H 118 H Lactic Acid Phosphorus Total Bilirubin Alkaline Phosphatase Troponin T NT-Pro-B Natriuret Pep Total Protein HDL Cholesterol HCG, Quant PTH Intact Urine WBC (Auto) Urine Creatinine 03/29/20 03/29/20 03/29/20 05:01 05:01 05:01 RBC Hgb Hct MCV MCH RDW Lymph % (Auto) Leslie % (Auto) Lymph # (Auto) Leslie # (Auto) Seg Neutrophils % PT 19.3 H INR 1.64 H ABG pH ABG pO2 ABG HCO3 ABG Base Excess ABG Hemoglobin Chloride 112.0 H Carbon Dioxide 14 L BUN 71 H Creatinine 5.3 H Glucose 112 H POC Glucose Lactic Acid Phosphorus 4.60 H Total Bilirubin Alkaline Phosphatase Troponin T 0.153 H* NT-Pro-B Natriuret Pep Total Protein HDL Cholesterol HCG, Quant PTH Intact 573.4 H Urine WBC (Auto) Urine Creatinine 03/29/20 03/29/20 06:21 06:21 RBC Hgb Hct MCV MCH RDW Lymph % (Auto) Leslie % (Auto) Lymph # (Auto) Leslie # (Auto) Seg Neutrophils % PT INR ABG pH ABG pO2 ABG HCO3 ABG Base Excess ABG Hemoglobin Chloride Carbon Dioxide BUN Creatinine Glucose POC Glucose Lactic Acid Phosphorus Total Bilirubin Alkaline Phosphatase Troponin T NT-Pro-B Natriuret Pep Total Protein HDL Cholesterol HCG, Quant PTH Intact Urine WBC (Auto) 74.0 H Urine Creatinine 46.8 H
--- NOTE | 2020-03-29 10:43 | Progress Note ---
Assessment and Plan tte reviewed - EF 40-45%, impaired relaxation, mild LVH, RV mild to mod dilated, RV systolic function mildly reduced, mild TR, pulm HTN with RVSP 62mmHg, trace MR. CE elevation appears c/w NSTEMI type II. Reduce IV lasix to daily dosing in setting of renal insufficiency. Nephrology is following. F/u BMP in AM. Pt noted to be severely anemic - hold Eliquis, PRBC transfusion pending per primary. Further eval/management per primary. F/u CBC in AM. The patient has been seen in conjunction with Dr. Banks who agrees with the assessment and plan of care. - Patient Problems (1) Acute HFrEF (heart failure with reduced ejection fraction) Current Visit: Yes Status: Acute (2) Cardiomyopathy Current Visit: Yes Status: Chronic (3) Acute respiratory failure Current Visit: Yes Status: Acute (4) Flash pulmonary edema Current Visit: Yes Status: Acute (5) Hypertensive emergency Current Visit: Yes Status: Acute (6) Paroxysmal atrial fibrillation Current Visit: Yes Status: Chronic (7) Acute on chronic renal failure Current Visit: Yes Status: Acute (8) NSTEMI (non-ST elevated myocardial infarction) Current Visit: Yes Status: Acute Plan to address problem: suspect type II (9) Anemia Current Visit: Yes Status: Acute (10) Lactic acidosis Current Visit: Yes Status: Acute (11) Diabetes mellitus Current Visit: Yes Status: Chronic (12) History of CVA (cerebrovascular accident) Current Visit: Yes Status: Chronic (13) Left ventricular apical thrombus Current Visit: No Status: Chronic Plan to address problem: 2015 (14) Pulmonary hypertension Current Visit: Yes Status: Chronic Subjective Date of service: 03/29/20 Principal diagnosis: HF; anemia; ARF Interval history: pt lying flat in bed, appears more comfortable today, on O2 via NC. tele reviewed - in SR. Objective Last Vital Signs Temp 101 F H 03/29/20 09:36 Pulse 94 H 03/29/20 09:25 Resp 18 03/29/20 09:25 BP 150/71 03/29/20 09:25 Pulse Ox 91 03/29/20 09:25 - Physical Examination General: No Apparent Distress HEENT: Positive: PERRL, Normocephaly, Mucus Membranes Moist Neck: Positive: neck supple, trachea midline Cardiac: Positive: Reg Rate and Rhythm, S1/S2 Lungs: Positive: Decreased Breath Sounds, Oxygen Neuro: Positive: Grossly Intact Abdomen: Negative: Tender Skin: Negative: Rash Musculoskeletal: No Pain Extremities: Absent: edema - Labs and Meds Coagulation 03/29/20 Range/Units 05:01 PT 19.3 H (12.2-14.9) Sec. INR 1.64 H (0.87-1.13) CBC 03/29/20 Range/Units 05:01 WBC 7.5 (4.5-11.0) K/mm3 RBC 2.23 L (3.65-5.03) M/mm3 Hgb 7.3 L (10.1-14.3) gm/dl Hct 21.9 L D (30.3-42.9) % Plt Count 192 (140-440) K/mm3 Lymph # (Auto) 1.0 L (1.2-5.4) K/mm3 [place] # (Auto) 0.8 (0.0-0.8) K/mm3 Eos # (Auto) 0.0 (0.0-0.4) K/mm3 Baso # (Auto) 0.1 (0.0-0.1) K/mm3 Comprehensive Metabolic Panel 03/29/20 Range/Units 05:01 Sodium 143 (137-145) mmol/L Potassium 4.1 (3.6-5.0) mmol/L Chloride 112.0 H (98-107) mmol/L Carbon Dioxide 14 L (22-30) mmol/L BUN 71 H (7-17) mg/dL Creatinine 5.3 H (0.6-1.2) mg/dL Glucose 112 H (65-100) mg/dL Calcium 8.8 (8.4-10.2) mg/dL - Imaging and Cardiology EKG: report reviewed, image reviewed Echo: report reviewed ([place] 06/2019 showed EF 40-45%, mod pulm HTN with RVSP 50mmHg, mild TR, no LV thrombus. ) - Telemetry EKG Rhythm: Sinus Rhythm
--- NOTE | 2020-03-29 11:44 | Progress Note ---
Assessment and Plan 1. ESRD: CKD has mostly likely has progressed to ESRD. Patient was diagnosed with CKD stage 5 in june 2019. Progressive CKD in the setting of poorly controlled HTN, DM and CHF. Renal US negative for hydro. DAVID, ANCA, Complements, GBM Ab and SPEP were negative. Monitor renal function. GFR is very low. Renal prognosis is guarded to poor. Avoid nephrotoxic agents. Meds dosage based on GFR. Monitor for [employer] needs. Explained patient that she need dialysis as her kidney function has declined significantly and associated with volume overload, during this hospitalization. 2. FEN: Volume overload, IV diuretics. Anion-gap metabolic acidosis, 2/2 lactic acidosis and CKD/LELIA, monitor. Monitor lytes and volume status. 3. Acute HFrEF (heart failure with reduced ejection fraction): Beta blockers. Followed by Cards. 4. NSTEMI. 5. Acute respiratory failure: 2/2 pulmonary edema. Diuretics. Supplemental O2. 6. Hypertensive emergency: Was on Nitro drip. BP is better. 7. Paroxysmal atrial fibrillation: Monitor. 8. Anemia, POA: Likely 2/2 CKD. Monitor. 9. DM type 2: Monitor bl glucose. Subjective: Patient was seen and examined at the bedside. Examination: General appearance: morbidly obese, well-developed, appears stated age, no distress HEENT: TESSA Neck: trachea midline Respiratory: decreased breath sounds, rales heard Heart: regular, S1S2, no murmur Gastrointestinal: soft, obese, normoactive bowel sounds, NT, Integumentary: no rash, warm and dry Neurologic: alert, oriented, non-focal Ext: no edema Subjective Date of service: 03/29/20 Principal diagnosis: HF; anemia; ARF Objective - Vital Signs Vital signs: Vital Signs - 12hr 03/29/20 03/29/20 03/29/20 03:33 06:08 09:25 Temperature 98.6 F Pulse Rate 91 H 91 H 94 H Respiratory 20 18 Rate Blood Pressure 132/60 132/60 150/71 O2 Sat by Pulse 96 91 Oximetry 03/29/20 09:36 Temperature 101 F H Pulse Rate Respiratory Rate Blood Pressure O2 Sat by Pulse Oximetry - Lab 03/29/20 05:01 03/29/20 05:01 Most recent lab results ABG pH 7.224 pH Units (7.350-7.450) L 12/01/20 01:05 ABG pCO2 35.1 mm Hg 03/28/20 01:05 ABG pO2 153.4 mm Hg (80.0-90.0) H 03/28/20 01:05 ABG HCO3 14.2 mmol/L (20.0-26.0) L 03/28/20 01:05 ABG O2 Saturation 98.7 % (95.0-99.0) 03/28/20 01:05 Calcium 8.8 mg/dL (8.4-10.2) 03/29/20 05:01 Phosphorus 4.60 mg/dL (2.5-4.5) H 03/29/20 05:01 Magnesium 2.20 mg/dL (1.7-2.3) 03/28/20 00:44 Urine Creatinine 46.8 mg/dL (0.1-20.0) H 03/29/20 06:21 Urine Sodium 95 mmol/L 03/29/20 06:21 Medications & Allergies - Medications Allergies/Adverse Reactions: Allergies meperidine HCl [From Demerol] Allergy (Verified 03/28/20 07:34) Itching penicillin Allergy (Verified 03/28/20 07:34) Unknown Home Medications: Home Medications Medication Instructions Recorded Confirmed Last Taken Type AtorvaSTATin [Lipitor] 40 mg PO QHS 03/28/20 03/28/20 Unknown History Bumetanide 2 mg PO BID 03/28/20 03/28/20 Unknown History Cyclobenzaprine [Flexeril] 10 mg PO QDAY PRN 03/28/20 03/28/20 Unknown History Furosemide [Lasix TAB] 40 mg PO BID 03/28/20 03/28/20 Unknown History Hydralazine HCl 75 mg PO TID 03/28/20 03/28/20 Unknown History ISOSORBIDE MONOnitrate [Imdur ER] 30 mg PO DAILY 03/28/20 03/28/20 Unknown History Sevelamer Carbonate [Renvela] 800 mg PO TID 03/28/20 03/28/20 Unknown History allopurinoL [Zyloprim] 300 mg PO QDAY 03/28/20 03/28/20 Unknown History amLODIPine [Norvasc] 10 mg PO DAILY 03/28/20 03/28/20 Unknown History carvediloL [Coreg] 25 mg PO BID 03/28/20 03/28/20 Unknown History glipiZIDE [Glucotrol] 10 mg PO BID 03/28/20 03/28/20 Unknown History predniSONE 10 mg PO QDAY 03/28/20 03/28/20 Unknown History Active Medications: Generic Name Dose Route Start Last Admin Trade Name Freq PRN Reason Stop Dose Admin Amlodipine Besylate 10 mg 03/28/20 10:00 03/29/20 09:38 Amlodipine PO 10 mg DAILY IRVIN Administration Carvedilol 25 mg 03/28/20 10:00 03/29/20 09:38 Coreg PO 25 mg Q12HR IRVIN Administration Dextrose 0 ml 03/28/20 03:29 D50w (25gm) Syringe IV Q30MIN PRN Hypoglycemia Protocol Furosemide 40 mg 03/30/20 10:00 Lasix IV QDAY IRVIN Hydralazine HCl 75 mg 03/28/20 14:00 03/29/20 06:08 Apresoline PO 75 mg Q8HR IRVIN Administration Insulin Human Lispro 0 unit 03/28/20 07:30 03/29/20 09:33 Humalog SUB-Q Not Given ACHS [facility] Protocol Isosorbide Mononitrate 30 mg 03/28/20 10:00 03/29/20 09:38 Imdur PO 30 mg DAILY IRVIN Administration Magnesium Hydroxide 30 ml 03/28/20 03:29 Milk Of Magnesia PO Q4H PRN Constipation Morphine Sulfate 2 mg 03/28/20 03:29 Morphine IV Q4H PRN Pain, Moderate (4-6) Ondansetron HCl 4 mg 03/28/20 03:29 Zofran IV Q8H PRN Nausea And Vomiting Sodium Chloride 10 ml 03/28/20 10:00 03/29/20 09:38 Sodium Chloride Flush Syringe 10 Ml IV 10 ml BID IRVIN Administration Sodium Chloride 10 ml 03/28/20 03:29 03/29/20 06:11 Sodium Chloride Flush Syringe 10 Ml IV 10 ml PRN PRN Administration LINE FLUSH
[2020-03-29] MEDS: ACETAMINOPHEN 325 MG TAB PO PRN (16:27)
[2020-03-30] MEDS: ACETAMINOPHEN 325 MG TAB PO PRN (01:02)
[2020-03-30] MEDS: hydrALAZINE 25 MG TAB PO SCH ×2 (06:08→14:00)
[2020-03-30 06:09] LABS: Hematocrit 20.9 % (30.3-42.9); Mean Corpuscular HGB Conc 33 % (30-34); Mean Corpuscular Volume 98 fl (79-97); Platelet Count 183 K/mm3 (140-440); Red Blood Count 2.14 M/mm3 (3.65-5.03); Red Cell Distribution Width 18.8 % (13.2-15.2)
[2020-03-30 06:24] LABS: Calcium 8.4 mg/dL (8.4-10.2)
[2020-03-30] MEDS: INSULIN LISPRO 100 UNIT/ML VIAL 3 mL SUB-Q SCH ×2 (08:22→12:08)
--- NOTE | 2020-03-30 08:36 | Progress Note ---
Assessment and Plan 50 y/o morbidly obese female with hypertensive urgency and acute on chronic systolic/diastolic heart failure exacerbation with volume overload. 1. Wean Fio2 for sats >88% 2. Will need ambulatory test prior to discharge to assess oxygen need if any 3. follow up cardiology recs 4. Suggest continued diuresis as this appears to have helped her her. 5. needs cultures if spikes again Subjective Date of service: 03/30/20 Principal diagnosis: HF; anemia; ARF Interval history: Still on nasal cannula at 3 liters. Good sats. Cards decreased lasix therapy because of renal function. i/o not accurate. Febrile yesterday 3 x but not recultured. Objective Vital Signs - 12hr 03/29/20 03/29/20 03/30/20 22:10 23:49 06:08 Temperature 101.0 F H Pulse Rate 86 90 85 Respiratory 18 Rate Blood Pressure 118/55 138/75 123/61 O2 Sat by Pulse 91 Oximetry CBC and BMP: 03/30/20 05:44 03/30/20 05:44 ABG, PT/INR, D-dimer: ABG ABG pH 7.224 pH Units (7.350-7.450) L 03/28/20 01:05 ABG pCO2 35.1 mm Hg 03/28/20 01:05 ABG pO2 153.4 mm Hg (80.0-90.0) H 03/28/20 01:05 ABG O2 Saturation 98.7 % (95.0-99.0) 03/28/20 01:05 PT/INR, D-dimer PT 19.3 Sec. (12.2-14.9) H 03/29/20 05:01 INR 1.64 (0.87-1.13) H 03/29/20 05:01 Abnormal lab findings: Abnormal Labs 03/28/20 03/28/20 03/28/20 00:44 00:44 00:44 RBC 2.87 L Hgb 9.2 L Hct 28.6 L MCV 100 H MCH RDW 18.7 H Lymph % (Auto) [place] % (Auto) 11.0 H Lymph # (Auto) [place] # (Auto) 1.2 H Seg Neutrophils % PT 15.6 H INR 1.26 H ABG pH ABG pO2 ABG HCO3 ABG Base Excess ABG Hemoglobin Chloride Carbon Dioxide 11 L BUN 65 H Creatinine 4.7 H Glucose 118 H POC Glucose Lactic Acid Phosphorus Total Bilirubin 1.40 H Alkaline Phosphatase 260 H Troponin T 0.134 H* NT-Pro-B Natriuret Pep Total Protein 8.6 H HDL Cholesterol 62 H HCG, Quant PTH Intact Urine WBC (Auto) Urine Creatinine Crossmatch 03/28/20 03/28/20 03/28/20 00:44 00:44 00:44 RBC Hgb Hct MCV MCH RDW Lymph % (Auto) [place] % (Auto) Lymph # (Auto) [place] # (Auto) Seg Neutrophils % PT INR ABG pH ABG pO2 ABG HCO3 ABG Base Excess ABG Hemoglobin Chloride Carbon Dioxide BUN Creatinine Glucose POC Glucose Lactic Acid 5.20 H* Phosphorus Total Bilirubin Alkaline Phosphatase Troponin T NT-Pro-B Natriuret Pep 15843 H Total Protein HDL Cholesterol HCG, Quant 9.39 H PTH Intact Urine WBC (Auto) Urine Creatinine Crossmatch 03/28/20 03/28/20 03/28/20 01:05 06:56 12:48 RBC Hgb Hct MCV MCH RDW Lymph % (Auto) [place] % (Auto) Lymph # (Auto) [place] # (Auto) Seg Neutrophils % PT INR ABG pH 7.224 L ABG pO2 153.4 H ABG HCO3 14.2 L ABG Base Excess -12.4 L ABG Hemoglobin 8.2 L Chloride Carbon Dioxide BUN Creatinine Glucose POC Glucose 108 H 123 H Lactic Acid Phosphorus Total Bilirubin Alkaline Phosphatase Troponin T NT-Pro-B Natriuret Pep Total Protein HDL Cholesterol HCG, Quant PTH Intact Urine WBC (Auto) Urine Creatinine Crossmatch 03/28/20 03/28/20 03/29/20 16:29 23:58 05:01 RBC 2.23 L Hgb 7.3 L Hct 21.9 L D MCV 98 H MCH 33 H RDW 18.4 H Lymph % (Auto) 12.7 L [place] % (Auto) 11.0 H Lymph # (Auto) 1.0 L [place] # (Auto) Seg Neutrophils % 74.8 H PT INR ABG pH ABG pO2 ABG HCO3 ABG Base Excess ABG Hemoglobin Chloride Carbon Dioxide BUN Creatinine Glucose POC Glucose 123 H 118 H Lactic Acid Phosphorus Total Bilirubin Alkaline Phosphatase Troponin T NT-Pro-B Natriuret Pep Total Protein HDL Cholesterol HCG, Quant PTH Intact Urine WBC (Auto) Urine Creatinine Crossmatch 03/29/20 03/29/20 03/29/20 05:01 05:01 05:01 RBC Hgb Hct MCV MCH RDW Lymph % (Auto) [place] % (Auto) Lymph # (Auto) [place] # (Auto) Seg Neutrophils % PT 19.3 H INR 1.64 H ABG pH ABG pO2 ABG HCO3 ABG Base Excess ABG Hemoglobin Chloride 112.0 H Carbon Dioxide 14 L BUN 71 H Creatinine 5.3 H Glucose 112 H POC Glucose Lactic Acid Phosphorus 4.60 H Total Bilirubin Alkaline Phosphatase Troponin T 0.153 H* NT-Pro-B Natriuret Pep Total Protein HDL Cholesterol HCG, Quant PTH Intact 573.4 H Urine WBC (Auto) Urine Creatinine Crossmatch 03/29/20 03/29/20 03/29/20 06:21 06:21 09:29 RBC Hgb Hct MCV MCH RDW Lymph % (Auto) Carbon % (Auto) Lymph # (Auto) [place] # (Auto) Seg Neutrophils % PT INR ABG pH ABG pO2 ABG HCO3 ABG Base Excess ABG Hemoglobin Chloride Carbon Dioxide BUN Creatinine Glucose POC Glucose Lactic Acid Phosphorus Total Bilirubin Alkaline Phosphatase Troponin T NT-Pro-B Natriuret Pep Total Protein HDL Cholesterol HCG, Quant PTH Intact Urine WBC (Auto) 74.0 H Urine Creatinine 46.8 H Crossmatch See Detail 03/29/20 03/29/20 03/29/20 16:14 18:05 21:20 RBC Hgb Hct MCV MCH RDW Lymph % (Auto) [place] % (Auto) Lymph # (Auto) [place] # (Auto) Seg Neutrophils % PT INR ABG pH ABG pO2 ABG HCO3 ABG Base Excess ABG Hemoglobin Chloride Carbon Dioxide BUN Creatinine Glucose POC Glucose 109 H 116 H Lactic Acid Phosphorus Total Bilirubin Alkaline Phosphatase Troponin T NT-Pro-B Natriuret Pep Total Protein HDL Cholesterol HCG, Quant 7.43 H PTH Intact Urine WBC (Auto) Urine Creatinine Crossmatch 03/30/20 03/30/20 03/30/20 05:44 05:44 08:08 RBC 2.14 L Hgb 7.0 L Hct 20.9 L MCV 98 H MCH 33 H RDW 18.8 H Lymph % (Auto) [place] % (Auto) Lymph # (Auto) [place] # (Auto) Seg Neutrophils % PT INR ABG pH ABG pO2 ABG HCO3 ABG Base Excess ABG Hemoglobin Chloride 107.9 H Carbon Dioxide 16 L BUN 68 H Creatinine 5.4 H Glucose 153 H POC Glucose 123 H Lactic Acid Phosphorus Total Bilirubin Alkaline Phosphatase Troponin T NT-Pro-B Natriuret Pep Total Protein HDL Cholesterol HCG, Quant PTH Intact Urine WBC (Auto) Urine Creatinine Crossmatch
--- NOTE | 2020-03-30 08:46 | Progress Note ---
Assessment and Plan 1. ESRD: CKD has mostly likely has progressed to ESRD. Patient was diagnosed with CKD stage 5 in june 2019. Progressive CKD in the setting of poorly controlled HTN, DM and CHF. Renal US negative for hydro. DAVID, ANCA, Complements, GBM Ab and SPEP were negative. Monitor renal function. GFR is very low. Renal prognosis is guarded to poor. Avoid nephrotoxic agents. Meds dosage based on GFR. Monitor for [employer] needs. Explained to patient that she need dialysis as her kidney function has declined significantly and associated with volume overload, metabolic acidosis and anemia. She refused hemodialysis. Risks explained, voiced understanding. She wants to follow with us in the office. 2. FEN: Volume overload, IV diuretics. Anion-gap metabolic acidosis, 2/2 lactic acidosis and CKD/LELIA, monitor. Monitor lytes and volume status. 3. Acute HFrEF (heart failure with reduced ejection fraction): Beta blockers. Followed by Cards. 4. NSTEMI. 5. Acute respiratory failure: 2/2 pulmonary edema. Diuretics. Supplemental O2. 6. Hypertensive emergency: Was on Nitro drip. BP is better. 7. Paroxysmal atrial fibrillation: Monitor. 8. Anemia, POA: Likely 2/2 CKD. One dose of Epogen 03/30. PRBC as needed. Monitor. 9. DM type 2: Monitor bl glucose. Subjective: Patient was seen and examined at the bedside. Examination: General appearance: morbidly obese, well-developed, appears stated age, no distress HEENT: [place] Neck: trachea midline Respiratory: decreased breath sounds bilaterally Heart: regular, S1S2, no murmur Gastrointestinal: soft, obese, normoactive bowel sounds, NT Integumentary: no rash, warm and dry Neurologic: alert, oriented, non-focal Ext: no edema Subjective Date of service: 03/30/20 Principal diagnosis: HF; anemia; ARF Objective - Vital Signs Vital signs: Vital Signs - 12hr 03/29/20 03/29/20 03/30/20 22:10 23:49 06:08 Temperature 101.0 F H Pulse Rate 86 90 85 Respiratory 18 Rate Blood Pressure 118/55 138/75 123/61 O2 Sat by Pulse 91 Oximetry - Lab 03/30/20 05:44 03/30/20 05:44 Most recent lab results ABG pH 7.224 pH Units (7.350-7.450) L 03/28/20 01:05 ABG pCO2 35.1 mm Hg 03/28/20 01:05 ABG pO2 153.4 mm Hg (80.0-90.0) H 03/28/20 01:05 ABG HCO3 14.2 mmol/L (20.0-26.0) L 03/28/20 01:05 ABG O2 Saturation 98.7 % (95.0-99.0) 03/28/20 01:05 Calcium 8.4 mg/dL (8.4-10.2) 03/30/20 05:44 Phosphorus 4.60 mg/dL (2.5-4.5) H 03/29/20 05:01 Magnesium 2.20 mg/dL (1.7-2.3) 03/28/20 00:44 Urine Creatinine 46.8 mg/dL (0.1-20.0) H 03/29/20 06:21 Urine Sodium 95 mmol/L 03/29/20 06:21 Medications & Allergies - Medications Allergies/Adverse Reactions: Allergies meperidine HCl [From Demerol] Allergy (Verified 03/28/20 07:34) Itching penicillin Allergy (Verified 03/28/20 07:34) Unknown Home Medications: Home Medications Medication Instructions Recorded Confirmed Last Taken Type AtorvaSTATin [Lipitor] 40 mg PO QHS 03/28/20 03/28/20 Unknown History Bumetanide 2 mg PO BID 03/28/20 03/28/20 Unknown History Cyclobenzaprine [Flexeril] 10 mg PO QDAY PRN 03/28/20 03/28/20 Unknown History Furosemide [Lasix TAB] 40 mg PO BID 03/28/20 03/28/20 Unknown History Hydralazine HCl 75 mg PO TID 03/28/20 03/28/20 Unknown History ISOSORBIDE MONOnitrate [Imdur ER] 30 mg PO DAILY 03/28/20 03/28/20 Unknown History Sevelamer Carbonate [Renvela] 800 mg PO TID 03/28/20 03/28/20 Unknown History allopurinoL [Zyloprim] 300 mg PO QDAY 03/28/20 03/28/20 Unknown History amLODIPine [Norvasc] 10 mg PO DAILY 03/28/20 03/28/20 Unknown History carvediloL [Coreg] 25 mg PO BID 03/28/20 03/28/20 Unknown History glipiZIDE [Glucotrol] 10 mg PO BID 03/28/20 03/28/20 Unknown History predniSONE 10 mg PO QDAY 03/28/20 03/28/20 Unknown History Active Medications: Generic Name Dose Route Start Last Admin Trade Name Freq PRN Reason Stop Dose Admin Acetaminophen 650 mg 03/29/20 13:53 03/30/20 01:02 Tylenol PO 650 mg Q4H PRN Administration Pain, Mild (1-3) Amlodipine Besylate 10 mg 03/28/20 10:00 03/29/20 09:38 Amlodipine PO 10 mg DAILY IRVIN Administration Carvedilol 25 mg 03/28/20 10:00 03/29/20 22:10 Coreg PO 25 mg Q12HR IRVIN Administration Dextrose 0 ml 03/28/20 03:29 D50w (25gm) Syringe IV Q30MIN PRN Hypoglycemia Protocol Furosemide 40 mg 03/30/20 10:00 Lasix IV QDAY [facility] Hydralazine HCl 75 mg 03/28/20 14:00 03/30/20 06:08 Apresoline PO 75 mg Q8HR IRVIN Administration Insulin Human Lispro 0 unit 03/28/20 07:30 03/30/20 08:22 Humalog SUB-Q Not Given ACHS [facility] Protocol Isosorbide Mononitrate 30 mg 03/28/20 10:00 03/29/20 09:38 Imdur PO 30 mg DAILY IRVIN Administration Magnesium Hydroxide 30 ml 03/28/20 03:29 Milk Of Magnesia PO Q4H PRN Constipation Morphine Sulfate 2 mg 03/28/20 03:29 Morphine IV Q4H PRN Pain, Moderate (4-6) Ondansetron HCl 4 mg 03/28/20 03:29 Zofran IV Q8H PRN Nausea And Vomiting Sodium Chloride 10 ml 03/28/20 10:00 03/29/20 22:10 Sodium Chloride Flush Syringe 10 Ml IV 10 ml BID IRVIN Administration Sodium Chloride 10 ml 03/28/20 03:29 03/29/20 06:11 Sodium Chloride Flush Syringe 10 Ml IV 10 ml PRN PRN Administration LINE FLUSH
--- NOTE | 2020-03-30 09:47 | Progress Note ---
Assessment and Plan Renal indices worsening - per nephrology, CKD has mostly likely has progressed to ESRD and pt needs to initiate dialysis on this admission. Anemia persists. Pt did not receive PRBC overnight due to fevers. Cont to hold home Eliquis. Further eval/management per primary. F/u CBC in AM. The patient has been seen in conjunction with Dr. Banks who agrees with the assessment and plan of care. - Patient Problems (1) Acute HFrEF (heart failure with reduced ejection fraction) Current Visit: Yes Status: Acute (2) Cardiomyopathy Current Visit: Yes Status: Chronic (3) Acute respiratory failure Current Visit: Yes Status: Acute (4) Flash pulmonary edema Current Visit: Yes Status: Acute (5) Hypertensive emergency Current Visit: Yes Status: Acute (6) Paroxysmal atrial fibrillation Current Visit: Yes Status: Chronic (7) Acute on chronic renal failure Current Visit: Yes Status: Acute (8) NSTEMI (non-ST elevated myocardial infarction) Current Visit: Yes Status: Acute Plan to address problem: suspect type II (9) Anemia Current Visit: Yes Status: Acute (10) Lactic acidosis Current Visit: Yes Status: Acute (11) Diabetes mellitus Current Visit: Yes Status: Chronic (12) History of CVA (cerebrovascular accident) Current Visit: Yes Status: Chronic (13) Left ventricular apical thrombus Current Visit: No Status: Chronic Plan to address problem: 2015 (14) Pulmonary hypertension Current Visit: Yes Status: Chronic (15) Fever Current Visit: Yes Status: Acute Subjective Date of service: 03/30/20 Principal diagnosis: HF; anemia; ARF Interval history: pt lying flat in bed, appears comfortable. fever noted overnight and thus she is COVID-19 PUI, testing pending. tele reviewed - in SR HR 80s. Objective Last Vital Signs Temp 101.0 F H 03/29/20 23:49 Pulse 85 03/30/20 06:08 Resp 18 03/29/20 23:49 BP 123/61 03/30/20 06:08 Pulse Ox 91 03/29/20 23:49 - Physical Examination General: No Apparent Distress HEENT: Positive: PERRL, Normocephaly, Mucus Membranes Moist Neck: Positive: neck supple, trachea midline Cardiac: Positive: Reg Rate and Rhythm, S1/S2 Lungs: Positive: Decreased Breath Sounds, Oxygen Neuro: Positive: Grossly Intact Abdomen: Negative: Tender Skin: Negative: Rash Musculoskeletal: No Pain Extremities: Absent: edema - Labs and Meds CBC 03/30/20 Range/Units 05:44 WBC 5.8 (4.5-11.0) K/mm3 RBC 2.14 L (3.65-5.03) M/mm3 Hgb 7.0 L (10.1-14.3) gm/dl Hct 20.9 L (30.3-42.9) % Plt Count 183 (140-440) K/mm3 Comprehensive Metabolic Panel 03/30/20 Range/Units 05:44 Sodium 139 (137-145) mmol/L Potassium 3.8 (3.6-5.0) mmol/L Chloride 107.9 H (98-107) mmol/L Carbon Dioxide 16 L (22-30) mmol/L BUN 68 H (7-17) mg/dL Creatinine 5.4 H (0.6-1.2) mg/dL Glucose 153 H (65-100) mg/dL Calcium 8.4 (8.4-10.2) mg/dL - Imaging and Cardiology EKG: report reviewed, image reviewed Echo: report reviewed (03/2020: EF 40-45%, impaired relaxation, mild LVH, RV mild to mod dilated, RV systolic function mildly reduced, mild TR, pulm HTN with RVSP 62mmHg, trace MR. [place] 06/2019 showed EF 40-45%, mod pulm HTN with RVSP 50mmHg, mild TR, no LV thrombus. ) - Telemetry EKG Rhythm: Sinus Rhythm
[2020-03-30] MEDS ORDERED: EPOETIN ALFA 2,000 UNIT/1 ML VIAL SUB-Q ONE (10:00)
[2020-03-30] MEDS ORDERED: FUROSEMIDE 40 MG/4 ML INJ IV SCH (10:00)
[2020-03-30] MEDS ORDERED: SODIUM BICARBONATE 650 MG TAB PO SCH (10:30)
[2020-03-30] MEDS: amLODIPine 10 MG TAB PO SCH (10:44)
[2020-03-30] MEDS: carvediloL 25 MG TAB PO SCH (10:44)
[2020-03-30] MEDS ORDERED: EPOETIN ALFA 20,000 UNIT/1 ML INJ SUB-Q SCH (11:00)
--- NOTE | 2020-03-30 11:20 | Event Note ---
Date: 03/30/20 Discussed plan of care with patient's networker Dr. Sheets. At this time, the patient is refusing the initiation of hemodialysis. Currently, the plan is to follow-up with Dr. Sheets in the outpatient setting. If the patient's situation changes, we will be available for placement of dialysis catheter.
[2020-03-30 13:41] VITALS: BP 141/85
--- NOTE | 2020-03-30 19:50 | Discharge Summary ---
Providers - Providers Date of Admission: 03/28/20 02:31 Date of discharge: 03/30/20 Attending physician: QUINTON PATTEN 03/28/20 03:30 Consult to Dietitian/Nutrition [CONS] Routine Physician Instructions: Reason For Exam: Reason for Consult: Diet education Consult to Physician [CONS] Routine Comment: Consulting Provider: PABLO NICHOLSON Physician Instructions: Reason For Exam: Pulmonary Edema,Hypertensive emergency 03/28/20 05:02 Consult to Physician [CONS] Routine Comment: Consulting Provider: CRISELDA WHITAKER Physician Instructions: Reason For Exam: Renal sufficiency 03/28/20 07:15 Consult to Physician [CONS] Routine Comment: Consulting Provider: AB ROGERS Physician Instructions: Reason For Exam: Hypertensive emergency, Pulm. Edema Primary care physician: NURSE PRACTITIONER PHYSICIAN ASSISTANT Hospitalization Condition: Critical Hospital course: --COVID-19 + 03/30/2020 Current Visit: Yes Status: Acute Plan to address problem: Patient does not want to stay in the hospital, reports that she wants to self quarantine at home Recent consequences and complications of leaving AMA Discussed in detail with the patient, patient verbalized understanding And insisted on leaving AMA after signing necessary papers --Febrile illness; secondary to COVID-19 infection Current Visit: Yes Status: Acute Plan to address problem: abdi PCR positive --Anemia; Hb 9.2-7.3 Current Visit: Yes Status: Acute Plan to address problem: patient on Eliquis for LV thrombus Hold Eliquis, transfuse 1 unit PRBC Stool for occult blood, closely monitor H&H. Patient was febrile, held the blood transfusion Today patient did not want to stay in the hospital left AMA --LV thrombus; Current Visit: Yes Status: Acute Plan to address problem: On Eliquis, hold Eliquis today per cardiology Due to sudden drop in H&H from 9.2-7.3 --Non-ST elevation DC 2/ nonspecific elevation of cardiac enzymes; Current Visit: Yes Status: Acute Plan to address problem: Cardiology following --Acute pulmonary edema: Current Visit: Yes Status: Acute Plan to address problem: Patient has known history of CHF with ejection fraction of 20% in 2015. Due to acute on chronic systolic congestive heart failure . Antifailure medications diuretic beta-blockers No MODESTO inhibitors in view of acute kidney injury Input output monitoring Daily weights Fluid restriction low-sodium diet Follow echocardiogram for LV function ejection fraction --Acute on chronic mild systolic CHF[EF 40 to 45% 03/28/2020] Current Visit: Yes Status: Acute Plan to address problem: Continue current antifailure medications Cardiology following -- Hypertensive emergency Current Visit: Yes Status: Acute . Plan to address problem: Patient placed on nitroglycerin drip. BP reasonable level titrate and DC the drip --Acute kidney injury Current Visit: Yes Status: Acute Plan to address problem: Vasomotor nephropathy , Closely monitor renal function, avoid nephrotoxin Nephrology consult --Type II diabetes mellitus Current Visit: No Status: Chronic Plan to address problem: Accu-Chek sliding scale coverage ADA diet insulin as needed --Morbid obesity; BMI 40.0 Current Visit: Yes Status: Acute . Plan to address problem: Advised diet modification exercise as tolerated and weight reduction, When medically stable --DVT prophylaxis Current Visit: Yes Status: Acute . Plan to address problem: Patient placed on subcutaneous heparin. --Full code status Current Visit: Yes Status: Acute Disposition: DC-07 LEFT AGAINST MED ADVICE Core Measure Documentation - Palliative Care Palliative Care/ Comfort Measures: Not Applicable Exam - Constitutional Vitals: Temp Pulse Resp BP Pulse Ox 97.8 F 69 20 141/85 100 03/30/20 09:07 03/30/20 11:30 03/30/20 09:07 03/30/20 09:07 03/30/20 09:07 Plan Follow up with: PRIMARY CAREMD [Primary Care Provider] - 3-5 Days Forms: AMA Form
== END 2020-03-30 17:44 | disposition left against medical advice (07) | DRG 177 ==
LOC: ED 00:25 → CC1 02:31 → 4A 19:20
PROVIDERS: ADMIT Internal Medicine Geriatric Medicine; ATTEND Internal Medicine
PROC: 5A09357 Assistance with Respiratory Ventilation, Less than 24 Consecutive Hours, Continuous Positive Airway Pressure (ICD-10-PCS; principal; 2020-03-28)
DX: U07.1 COVID-19 (principal); I21.A1 Myocardial infarction type 2; N17.0 Acute kidney failure with tubular necrosis; J96.00 Acute respiratory failure, unspecified whether with hypoxia or hypercapnia; J81.0 Acute pulmonary edema; I50.23 Acute on chronic systolic (congestive) heart failure; I16.1 Hypertensive emergency; E87.2 Acidosis; I13.0 Hypertensive heart and chronic kidney disease with heart failure and stage 1 through stage 4 chronic kidney disease, or unspecified chronic kidney disease; N18.5 Chronic kidney disease, stage 5; I42.9 Cardiomyopathy, unspecified; E66.01 Morbid (severe) obesity due to excess calories; I48.0 Paroxysmal atrial fibrillation; E11.22 Type 2 diabetes mellitus with diabetic chronic kidney disease; Z88.0 Allergy status to penicillin; Z88.8 Allergy status to other drugs, medicaments and biological substances; Z98.51 Tubal ligation status; Z79.01 Long term (current) use of anticoagulants; Z79.891 Long term (current) use of opiate analgesic; Z79.84 Long term (current) use of oral hypoglycemic drugs; Z79.82 Long term (current) use of aspirin; Z79.899 Other long term (current) drug therapy; Z68.39 Body mass index [BMI] 39.0-39.9, adult; Z86.73 Personal history of transient ischemic attack (TIA), and cerebral infarction without residual deficits
CPT/HCPCS: 36415; 71045; 76770; 80048; 80053; 80061; 81001; 82140; 82550; 82570; 82803; 82962; 83735; 83880; 83970; 84100; 84300; 84484; 84702; 85025; 85027; 85610; 86850; 86900; 86901; 86920; 87040; 87086; 93005; 93306; G0378; J0885; J1940; J3370; J7040; U0003

== ENCOUNTER 2021-03-06 22:06 | Inpatient (IN) | payer MEDICARE ==
--- NOTE | 2021-03-06 22:21 | Emergency Department Report ---
HPI - General Time Seen by Provider: 03/06/21 22:09 - HPI HPI: This is a 50-year-old -[place] female, with a past medical history of jna-rvzoyny-jyekqykhk diabetes, end-stage renal disease not on hemodialysis, CVA, CHF with ejection fraction of 20% in 2015, LV thrombus, paroxysmal atrial fibrillation, and anemia, who presents to the emergency department with shortness of breath and respiratory distress that started this evening. Apparently the apartment complex smelled of acetone. Initially the FD truck arrived prior to the paramedics and they were getting the patient out in the evacuation chair. EMS found the patient to have a room air pulse ox of 78%. She was given 5 mg of albuterol, 125 mg of Solu-Medrol, 2 g of magnesium and placed on a CPAP and brought in for further evaluation. The patient is sleepy but easily arousable. Currently she is a poor historian secondary to her respiratory distress. Her buoy tender is Dr Espinoza. ED Past Medical Hx - Past Medical History Hx Hypertension: Yes Hx Heart Attack/AMI: No Hx Congestive Heart Failure: No Hx Diabetes: Yes Hx Deep Vein Thrombosis: No Hx Pulmonary Embolism: No Hx Liver Disease: No Hx Renal Disease: No Hx Sickle Cell Disease: No Hx Arthritis: No Hx Seizures: No Hx Kidney Stones: No Hx Asthma: No Hx COPD: No Hx Tuberculosis: No Hx Dementia: No Hx HIV: No - Surgical History Hx Coronary Stent: No Hx Pacemaker: No Hx Internal Defibrillator: No Additional Surgical History: tubal ligation - Social History Smoking Status: Never Smoker - Medications Home Medications: Home Medications Medication Instructions Recorded Confirmed Last Taken Type AtorvaSTATin [Lipitor] 40 mg PO QHS 03/28/20 03/28/20 Unknown History Bumetanide 2 mg PO BID 03/28/20 03/28/20 Unknown History Cyclobenzaprine [Flexeril] 10 mg PO QDAY PRN 03/28/20 03/28/20 Unknown History Furosemide [Lasix TAB] 40 mg PO BID 03/28/20 03/28/20 Unknown History Hydralazine HCl 75 mg PO TID 03/28/20 03/28/20 Unknown History ISOSORBIDE MONOnitrate [Imdur ER] 30 mg PO DAILY 03/28/20 03/28/20 Unknown History Sevelamer Carbonate [Renvela] 800 mg PO TID 03/28/20 03/28/20 Unknown History allopurinoL [Zyloprim] 300 mg PO QDAY 03/28/20 03/28/20 Unknown History amLODIPine [Norvasc] 10 mg PO DAILY 03/28/20 03/28/20 Unknown History carvediloL [Coreg] 25 mg PO BID 03/28/20 03/28/20 Unknown History glipiZIDE [Glucotrol] 10 mg PO BID 03/28/20 03/28/20 Unknown History predniSONE 10 mg PO QDAY 03/28/20 03/28/20 Unknown History ED Review of Systems ROS: Stated complaint: JUDY Other details as noted in HPI Comment: Unobtainable due to pts medical conditions Respiratory: shortness of breath Physical Exam - Physical Exam Physical Exam: GENERAL: The patient is ill-appearing. HENT: Normocephalic. Atraumatic. Patient has moist mucous membranes. EYES: Extraocular motions are intact. NECK: Supple. Trachea is midline. CHEST/LUNGS: Coarse breath sounds and rhonchi heard bilaterally. There is tachypnea, conversational dyspnea and accessory muscle use. HEART/CARDIOVASCULAR: Regular. There is mild tachycardia. There is no murmur. ABDOMEN: Abdomen is soft, nontender. Patient has normal bowel sounds. Obese habitus. SKIN: Skin is warm and dry. NEURO: The patient is sleepy but easily arousable. Normal speech. MUSCULOSKELETAL: There is no tenderness or deformity. ED Course - Consultations Consultation #1: 03/06/21 23:[address] Marquez, buoy tender on-call for [facility] nephrology, and he listened to the case presentation and ED course. I told him that I plan to give Lasix and a dose of sodium bicarbonate and he is in agreement with this plan. They will consult on the patient. ED Medical Decision Making - Lab Data Result diagrams: 03/06/21 22:22 03/06/21 22:22 Lab Results 03/06/21 03/06/21 03/06/21 Range/Units 22:22 22:22 22:22 WBC 15.6 H (4.5-11.0) K/mm3 RBC 2.60 L (3.65-5.03) M/mm3 Hgb 8.1 L (10.1-14.3) gm/dl Hct 26.4 L (30.3-42.9) % MCV 102 H (79-97) fl MCH 31 (28-32) pg MCHC 31 (30-34) % RDW 25.6 H (13.2-15.2) % Plt Count 235 (140-440) K/mm3 Add Manual Diff Complete Total Counted 100 Seg Neuts % (Manual) 87.0 H (40.0-70.0) % Lymphocytes % (Manual) 9.0 L (13.4-35.0) % Monocytes % (Manual) 3.0 (0.0-7.3) % Basophils % (Manual) 1.0 (0.0-1.8) % Nucleated RBC % 3.0 H (0.0-0.9) % Seg Neutrophils # Man 13.6 H (1.8-7.7) K/mm3 Band Neutrophils # 0.0 K/mm3 Lymphocytes # (Manual) 1.4 (1.2-5.4) K/mm3 Abs React Lymphs (Man) 0.0 K/mm3 Monocytes # (Manual) 0.5 (0.0-0.8) K/mm3 Eosinophils # (Manual) 0.0 (0.0-0.4) K/mm3 Basophils # (Manual) 0.2 H (0.0-0.1) K/mm3 Metamyelocytes # 0.0 K/mm3 Myelocytes # 0.0 K/mm3 Promyelocytes # 0.0 K/mm3 Blast Cells # 0.0 K/mm3 WBC Morphology Not Reportable Hypersegmented Neuts Not Reportable Hyposegmented Neuts Not Reportable Hypogranular Neuts Not Reportable Smudge Cells Not Reportable Toxic Granulation Not Reportable Toxic Vacuolation Not Reportable Dohle Bodies Not Reportable Pelger-Huet Anomaly Not Reportable Cliff Rods Not Reportable Platelet Estimate Consistent w auto Clumped Platelets Not Reportable Plt Clumps, EDTA Not Reportable Large Platelets Not Reportable Giant Platelets Not Reportable Platelet Satelliting Not Reportable Plt Morphology Comment Not Reportable RBC Morphology Not Reportable Dimorphic RBCs Not Reportable Polychromasia Not Reportable Hypochromasia Not Reportable Poikilocytosis Not Reportable Anisocytosis 2+ Microcytosis Not Reportable Macrocytosis Not Reportable Spherocytes Not Reportable Pappenheimer Bodies Not Reportable Sickle Cells Not Reportable Target Cells Not Reportable Tear Drop Cells Not Reportable Ovalocytes Not Reportable Helmet Cells Not Reportable [place] Bodies Not Reportable [place] Rings Not Reportable [place] Cells Not Reportable Bite Cells Not Reportable Crenated Cell Not Reportable Elliptocytes Not Reportable Acanthocytes (Spur) Not Reportable Rouleaux Not Reportable Hemoglobin C Crystals Not Reportable Schistocytes Not Reportable Malaria parasites Not Reportable [place] Bodies Not Reportable Hem Pathologist Commnt No PT 15.4 H (12.2-14.9) Sec. INR 1.10 (0.87-1.13) Sodium 139 (137-145) mmol/L Potassium 4.3 (3.6-5.0) mmol/L Chloride 105.0 (98-107) mmol/L Carbon Dioxide 8 L* (22-30) mmol/L Anion Gap 30 mmol/L BUN 90 H (7-17) mg/dL Creatinine 6.3 H (0.6-1.2) mg/dL Estimated GFR 9 ml/min BUN/Creatinine Ratio 14 % Glucose 187 H (65-100) mg/dL Lactic Acid (0.7-2.0) mmol/L Calcium 9.4 (8.4-10.2) mg/dL Total Bilirubin 1.10 (0.1-1.2) mg/dL AST 11 (5-40) units/L ALT 9 (7-56) units/L Alkaline Phosphatase 282 H (35-129) units/L Troponin T 0.186 H* (0.00-0.029) ng/mL NT-Pro-B Natriuret Pep 72794 H (0-450) pg/mL Total Protein 8.7 H (6.3-8.2) g/dL Albumin 4.1 (3.9-5) g/dL Albumin/Globulin Ratio 0.9 % Triglycerides 161 H (2-149) mg/dL Cholesterol 180 (50-199) mg/dL LDL Cholesterol Direct 96 (50-130) mg/dL HDL Cholesterol 50 (40-59) mg/dL Cholesterol/HDL Ratio 3.60 % 03/06/21 03/07/21 Range/Units 22:22 00:11 WBC (4.5-11.0) K/mm3 RBC (3.65-5.03) M/mm3 Hgb (10.1-14.3) gm/dl Hct (30.3-42.9) % MCV (79-97) fl MCH (28-32) pg MCHC (30-34) % RDW (13.2-15.2) % Plt Count (140-440) K/mm3 Add Manual Diff Total Counted Seg Neuts % (Manual) (40.0-70.0) % Lymphocytes % (Manual) (13.4-35.0) % Monocytes % (Manual) (0.0-7.3) % Basophils % (Manual) (0.0-1.8) % Nucleated RBC % (0.0-0.9) % Seg Neutrophils # Man (1.8-7.7) K/mm3 Band Neutrophils # K/mm3 Lymphocytes # (Manual) (1.2-5.4) K/mm3 Abs React Lymphs (Man) K/mm3 Monocytes # (Manual) (0.0-0.8) K/mm3 Eosinophils # (Manual) (0.0-0.4) K/mm3 Basophils # (Manual) (0.0-0.1) K/mm3 Metamyelocytes # K/mm3 Myelocytes # K/mm3 Promyelocytes # K/mm3 Blast Cells # K/mm3 WBC Morphology Hypersegmented Neuts Hyposegmented Neuts Hypogranular Neuts Smudge Cells Toxic Granulation Toxic Vacuolation Dohle Bodies Pelger-Huet Anomaly [place] Rods Platelet Estimate Clumped Platelets Plt Clumps, EDTA Large Platelets Giant Platelets Platelet Satelliting Plt Morphology Comment RBC Morphology Dimorphic RBCs Polychromasia Hypochromasia Poikilocytosis Anisocytosis Microcytosis Macrocytosis Spherocytes Pappenheimer Bodies Sickle Cells Target Cells Tear Drop Cells Ovalocytes Helmet Cells [place] Bodies [place] Rings [place] Cells Bite Cells Crenated Cell Elliptocytes Acanthocytes (Spur) Rouleaux Hemoglobin C Crystals Schistocytes Malaria parasites Tyson Bodies Hem Pathologist Commnt PT (12.2-14.9) Sec. INR (0.87-1.13) Sodium (137-145) mmol/L Potassium (3.6-5.0) mmol/L Chloride (98-107) mmol/L Carbon Dioxide (22-30) mmol/L Anion Gap mmol/L BUN (7-17) mg/dL Creatinine (0.6-1.2) mg/dL Estimated GFR ml/min BUN/Creatinine Ratio % Glucose (65-100) mg/dL Lactic Acid 4.40 H* 1.00 (0.7-2.0) mmol/L Calcium (8.4-10.2) mg/dL Total Bilirubin (0.1-1.2) mg/dL AST (5-40) units/L ALT (7-56) units/L Alkaline Phosphatase (35-129) units/L Troponin T (0.00-0.029) ng/mL NT-Pro-B Natriuret Pep (0-450) pg/mL Total Protein (6.3-8.2) g/dL Albumin (3.9-5) g/dL Albumin/Globulin Ratio % Triglycerides (2-149) mg/dL Cholesterol (50-199) mg/dL LDL Cholesterol Direct (50-130) mg/dL HDL Cholesterol (40-59) mg/dL Cholesterol/HDL Ratio % - EKG Data -: EKG Interpreted by Me EKG shows normal: sinus rhythm (PVCs), axis, intervals (Prolonged QT and QTc intervals), QRS complexes, ST-T waves (Nonspecific ST-T waves) Rate: normal - EKG Data When compared to previous EKG there are: changes noted (Previous EKG from 03/28/2020 showed a junctional tachycardia that is not seen today.) Interpretation: other (Sinus rhythm, PVCs, rate of 72, normal axis, prolonged QT and QTc intervals, nonspecific ST-T waves. No ST elevation [place]) - Radiology Data Radiology results: image reviewed interpreted by me: Chest x-ray shows cardiomegaly, pulmonary vascular congestion and pulmonary edema. No pneumothorax. No widened mediastinum. - Medical Decision Making This patient presents to the emergency department with some acute shortness of breath starting this evening. She had hypoxia on room air with EMS and was placed on CPAP. The patient was seen to be 66 to 70% oxygen saturation while on CPAP. The patient was then placed on BiPAP with a high FiO2 and oxygen saturation went up into the high 90s with some improvement in her work of breathing as well. Chest x-ray shows pulmonary vascular congestion, cardiomegaly, pulmonary edema. Labs shows anemia of chronic kidney disease with hemoglobin of 8.1 but does not require transfusion, leukocytosis of about 15,000, elevated BUN and creatinine, and elevated troponin level, elevated BNP, lactic acidosis. Patient has a bicarb level of 8. The patient was given some Lasix for diuresis and some sodium bicarbonate. Nephrology was contacted and consulted. Patient will be admitted to the hospital for further evaluation and treatment and was accepted for admission by the hospitalist, Dr. Xavier. Critical Care Time: Yes Critical care time in (mins) excluding proc time.: 35 Critical care attestation.: If time is entered above; I have spent that time in minutes in the direct care of this critically ill patient, excluding procedure time. Critical care time was spent on this patient in doing her initial evaluation, multiple reevaluations, ordering and interpretation of labs and imaging, BiPAP management, Lasix for diuresis, multiple discussions with the patient and her significant other, discussion with the nephrology and hospitalist services. Critical Care Time: 35 minutes ED Disposition Clinical Impression: Acute respiratory failure with hypoxia, Lactic acidosis, Elevated troponin Pulmonary edema Qualifiers: Chronicity: acute Qualified Code(s): J81.0 - Acute pulmonary edema [id number] renal failure Qualifiers: Acute renal failure type: unspecified Chronic kidney disease stage: stage 5, not on chronic dialysis Qualified Code(s): N17.9 - Acute kidney failure, unspecified; N18.5 - Chronic kidney disease, stage 5 CHF (congestive heart failure) Qualifiers: Heart failure type: unspecified Heart failure chronicity: acute on chronic Qualified Code(s): I50.9 - Heart failure, unspecified Hypertension Qualifiers: Hypertension type: renovascular hypertension Qualified Code(s): I15.0 - Renovascular hypertension Disposition: ADMITTED INPATIENT Is pt being admited?: Yes Condition: Serious Time of Disposition: 00:00
[2021-03-06] MEDS ORDERED: ALBUTEROL 2.5 MG/3 ML NEBU IH ONE (22:22)
[2021-03-06] MEDS ORDERED: IPRATROPIUM 0.02% NEBU 2.5 ML IH ONE (22:23)
[2021-03-06 22:42] LABS: Hematocrit 26.4 % (30.3-42.9); Hemoglobin 8.1 gm/dl (10.1-14.3); Mean Corpuscular HGB Conc 31 % (30-34); Mean Corpuscular Volume 102 fl (79-97); Platelet Count 235 K/mm3 (140-440)
[2021-03-06 22:45] LABS: Red Cell Distribution Width 25.6 % (13.2-15.2)
[2021-03-06 22:52] LABS: INR 1.1 (0.87-1.13)
[2021-03-06 23:05] LABS: Albumin 4.1 g/dL (3.9-5); Calcium 9.4 mg/dL (8.4-10.2)
--- NOTE | 2021-03-06 23:45 | XRay Report ---
CHEST 1 VIEW 03/06/2021 10:23 PM INDICATION / CLINICAL INFORMATION: SOB. COMPARISON: 03/28/20 FINDINGS: SUPPORT DEVICES: None. HEART / MEDIASTINUM: Enlarged but stable. LUNGS / PLEURA: Mild interstitial pulmonary edema. No acute airspace disease. No significant effusion . No pneumothorax. ADDITIONAL FINDINGS: No significant additional findings. IMPRESSION: 1. Cardiomegaly with pulmonary edema. Appearance is similar to prior study. Signer Name: Mena Weir MD Signed: 03/06/2021 11:40 PM Workstation Name: [id number]
[2021-03-06] MEDS ORDERED: SODIUM BICARB 8.4% 50 MEQ/50 ML SYRINGE IV ONE (23:54)
[2021-03-06] MEDS ORDERED: FUROSEMIDE 40 MG/4 ML INJ IV ONE (23:54)
[2021-03-07] MEDS ORDERED: DEXTROSE 50% IN WATER (25GM) 50 ML SYRINGE IV PRN ×2 (00:25→00:34)
[2021-03-07] MEDS ORDERED: ONDANSETRON 4 MG/2 ML INJ IV PRN (00:25)
[2021-03-07] MEDS ORDERED: MAGNESIUM HYDROXIDE (MOM) ORAL LIQD UDC PO PRN (00:25)
[2021-03-07] MEDS ORDERED: ACETAMINOPHEN 325 MG TAB PO PRN (00:25)
[2021-03-07] MEDS ORDERED: MORPHINE 2 MG/1 ML INJ IV PRN (00:25)
--- NOTE | 2021-03-07 00:43 | History and Physical Report ---
History of Present Illness Date of examination: 03/07/21 Date of admission: 03/07/2021 Chief complaint: Shortness of Breath History of present illness: 50-year-old -[place] female with known history of diabetes mellitus, CHF with ejection fraction of about 20% in 2015, CVA, paroxysmal atrial fibrillation, end-stage renal disease but not on dialysis presents to the emergency room today via EMS for shortness of breath and respiratory distress. Symptoms were said to have started earlier this evening. In route to the hospital patient was found to have an oxygen saturation of about 78%. She received nebulizing treatments albuterol, Solu-Medrol and magnesium and placed on CPAP. Upon arrival in the emergency room patient was subsequently placed on BiPAP. Evaluation in the emergency room reveals elevated BUN and creatinine of 19 and 6.3 respectively. Bicarb of 8, lactic acid of 4.4, hemoglobin of 8.1 and hematocrit of 26.4. Chest x-ray shows cardiomegaly with pulmonary edema. Past History Past Medical History: diabetes, hypertension, hyperlipidemia Past Surgical History: Other (Tubal ligation) Social history: no significant social history Family history: no significant family history Medications and Allergies Allergies Allergy/AdvReac Type Severity Reaction Status Date / Time lisinopril Allergy Unknown Verified 03/06/21 22:50 meperidine HCl [From Demerol] Allergy Itching Verified 03/28/20 07:34 penicillin Allergy Unknown Verified 03/28/20 07:34 Home Medications Medication Instructions Recorded Confirmed Last Taken Type AtorvaSTATin [Lipitor] 40 mg PO QHS 03/28/20 03/28/20 Unknown History Bumetanide 2 mg PO BID 03/28/20 03/28/20 Unknown History Cyclobenzaprine [Flexeril] 10 mg PO QDAY PRN 03/28/20 03/28/20 Unknown History Furosemide [Lasix TAB] 40 mg PO BID 03/28/20 03/28/20 Unknown History Hydralazine HCl 75 mg PO TID 03/28/20 03/28/20 Unknown History ISOSORBIDE MONOnitrate [Imdur ER] 30 mg PO DAILY 03/28/20 03/28/20 Unknown History Sevelamer Carbonate [Renvela] 800 mg PO TID 03/28/20 03/28/20 Unknown History allopurinoL [Zyloprim] 300 mg PO QDAY 03/28/20 03/28/20 Unknown History amLODIPine [Norvasc] 10 mg PO DAILY 03/28/20 03/28/20 Unknown History carvediloL [Coreg] 25 mg PO BID 03/28/20 03/28/20 Unknown History glipiZIDE [Glucotrol] 10 mg PO BID 03/28/20 03/28/20 Unknown History predniSONE 10 mg PO QDAY 03/28/20 03/28/20 Unknown History Active Meds: Active Medications Acetaminophen (Acetaminophen 325 Mg Tab) 650 mg PO Q4H PRN PRN Reason: Pain MILD(1-3)/Fever >100.5/GONZALEZ Dextrose (Dextrose 50% In Water (25gm) 50 Ml Syringe) 50 ml IV Q30MIN PRN; Protocol PRN Reason: Hypoglycemia Dextrose (Dextrose 50% In Water (25gm) 50 Ml Syringe) 50 ml IV Q30MIN PRN; Protocol PRN Reason: Hypoglycemia Furosemide (Furosemide 40 Mg/4 Ml Inj) 40 mg IV BID@0600,1800 [facility] Heparin Sodium (Porcine) (Heparin 5,000 Unit/1 Ml Vial) 5,000 unit SUB-Q Q8HR [facility] Insulin Human Lispro (Insulin Lispro 100 Unit/Ml) 0 unit SUB-Q ACHS [facility]; Protocol Magnesium Hydroxide (Magnesium Hydroxide (Mom) Oral Liqd Udc) 30 ml PO Q4H PRN PRN Reason: Constipation Morphine Sulfate (Morphine 2 Mg/1 Ml Inj) 2 mg IV Q4H PRN PRN Reason: Pain, Moderate (4-6) Morphine Sulfate (Morphine 4 Mg/1 Ml Inj) 4 mg IV Q4H PRN PRN Reason: Pain , Severe (7-10) Ondansetron HCl (Ondansetron 4 Mg/2 Ml Inj) 4 mg IV Q8H PRN PRN Reason: Nausea And Vomiting Sodium Chloride (Sodium Chloride 0.9% 10 Ml Flush Syringe) 10 ml IV BID [facility] Sodium Chloride (Sodium Chloride 0.9% 10 Ml Flush Syringe) 10 ml IV PRN PRN PRN Reason: LINE FLUSH Review of Systems Constitutional: no fever, no chills Ears, nose, mouth and throat: no nasal congestion, no sore throat Cardiovascular: no chest pain, no palpitations Respiratory: shortness of breath, no cough Gastrointestinal: no abdominal pain, no nausea, no vomiting, no diarrhea Genitourinary Female: no pelvic pain, no flank pain, no dysuria, no hematuria Musculoskeletal: no neck pain, no low back pain Integumentary: no rash, no pruritis Neurological: no headaches, no confusion Psychiatric: no anxiety, no depression Endocrine: no polyphagia, no polydipsia, no polyuria, no nocturia Exam - Constitutional Vitals: Temp Pulse Resp BP Pulse Ox 70 23 170/68 99 03/06/21 23:46 03/06/21 23:46 03/06/21 23:46 03/06/21 23:46 General appearance: Present: mild distress (On Bipap), well-nourished, obese - EENT Eyes: Present: PERRL, EOM intact. Absent: scleral icterus ENT: hearing intact, clear oral mucosa, dentition normal - Neck Neck: Present: supple, normal ROM - Respiratory Respiratory effort: normal Respiratory: bilateral: rales (Few rales in the lung bases) - Cardiovascular Rhythm: regular Heart Sounds: Present: S1 & S2. Absent: gallop, systolic murmur, diastolic murmur, rub, click - Extremities Extremities: no ischemia, pulses intact, pulses symmetrical, No edema, normal temperature, normal color, Full ROM Peripheral Pulses: within normal limits - Abdominal General gastrointestinal: Present: soft, non-tender, non-distended, normal bowel sounds. Absent: mass - Integumentary Integumentary: Present: clear, warm, dry. Absent: rash - Musculoskeletal Musculoskeletal: strength equal bilaterally - Psychiatric Psychiatric: appropriate mood/affect, intact judgment & insight, memory intact, cooperative - Neurologic Neurologic: CNII-XII intact, no focal deficits, moves all extremities HEART Score - HEART Score Troponin: Troponin T 0.186 ng/mL (0.00-0.029) H* 03/06/21 22:22 Results - Labs CBC & Chem 7: 03/06/21 22:22 03/06/21 22:22 Labs: Abnormal lab results 03/06/21 03/06/21 03/06/21 Range/Units 22:22 22:22 22:22 WBC 15.6 H (4.5-11.0) K/mm3 RBC 2.60 L (3.65-5.03) M/mm3 Hgb 8.1 L (10.1-14.3) gm/dl Hct 26.4 L (30.3-42.9) % MCV 102 H (79-97) fl RDW 25.6 H (13.2-15.2) % PT 15.4 H (12.2-14.9) Sec. Carbon Dioxide 8 L* (22-30) mmol/L BUN 90 H (7-17) mg/dL Creatinine 6.3 H (0.6-1.2) mg/dL Glucose 187 H (65-100) mg/dL Lactic Acid (0.7-2.0) mmol/L Alkaline Phosphatase 282 H (35-129) units/L Troponin T 0.186 H* (0.00-0.029) ng/mL Total Protein 8.7 H (6.3-8.2) g/dL 03/06/21 Range/Units 22:22 WBC (4.5-11.0) K/mm3 RBC (3.65-5.03) M/mm3 Hgb (10.1-14.3) gm/dl Hct (30.3-42.9) % MCV (79-97) fl RDW (13.2-15.2) % PT (12.2-14.9) Sec. Carbon Dioxide (22-30) mmol/L BUN (7-17) mg/dL Creatinine (0.6-1.2) mg/dL Glucose (65-100) mg/dL Lactic Acid 4.40 H* (0.7-2.0) mmol/L Alkaline Phosphatase (35-129) units/L Troponin T (0.00-0.029) ng/mL Total Protein (6.3-8.2) g/dL Assessment and Plan - Patient Problems (1) Pulmonary edema Current Visit: Yes Status: Acute Qualifiers: Chronicity: acute Qualified Code(s): J81.0 - Acute pulmonary edema Plan to address problem: Possibly secondary to CHF/end-stage renal disease. Patient will be diuresed with IV Lasix. We will schedule patient for echocardiogram. We will monitor inputs and outputs and also monitor daily weights. Meanwhile would place consult to cardiology and nephrology for follow-up. (2) Acute respiratory failure Current Visit: No Status: Acute Plan to address problem: Possibly secondary to the pulmonary edema. Patient currently on BiPAP. We will keep O2 saturation greater or equal to 92%. (3) Elevated troponin Current Visit: Yes Status: Acute Plan to address problem: Patient has denied any chest pain. We will trend troponin levels. (4) HTN (hypertension) Current Visit: Yes Status: Chronic Qualifiers: Hypertension type: renovascular hypertension Qualified Code(s): I15.0 - Renovascular hypertension Plan to address problem: We will resume routine home medications and monitor vital signs closely. (5) Metabolic acidosis Current Visit: No Status: Acute Plan to address problem: Patient given sodium bicarb. Will monitor chemistry. (6) Diabetes mellitus Current Visit: No Status: Chronic Plan to address problem: Patient placed on sliding scale insulin. We will monitor Accu-Cheks. (7) Dyslipidemia Current Visit: No Status: Chronic Plan to address problem: Continue routine home medications and monitor lipid profile. (8) Anemia Current Visit: No Status: Acute Plan to address problem: Possibly chronic. We will monitor CBC. (9) DVT prophylaxis Current Visit: No Status: Acute Plan to address problem: Patient placed on subcutaneous heparin. (10) Full code status Current Visit: No Status: Acute Plan to address problem: Patient is full code.
[2021-03-07 00:52] LABS: Total Cells Counted 100
[2021-03-07 00:53] LABS: Anisocytosis 2+; Platelet Estimate Consistent w Auto
[2021-03-07 02:28] LABS: Chol/HDL Ratio 3.6 %
[2021-03-07 03:09] LABS: ABG Base Excess -12.7 mmol/L (-2.0-3.0); ABG HCO3 13.6 mmol/L (20.0-26.0); ABG Methemoglobin 0.4 % (0.0-1.5); ABG Oxygen Saturation 97.9 % (95.0-99.0); ABG PCO2 32.6 mm Hg; ABG PH 7.239 pH Units (7.350-7.450); ABG PO2 117.9 mm Hg (80.0-90.0)
[2021-03-07] MEDS ORDERED: SODIUM BICARB 8.4% 50 MEQ/50 ML SYRINGE IV ONE (03:29)
[2021-03-07] MEDS: FUROSEMIDE 40 MG/4 ML INJ IV SCH ×2 (06:38→17:44)
[2021-03-07] MEDS: HEPARIN 5,000 UNIT/1 ML VIAL SUB-Q SCH ×2 (06:38→15:30)
[2021-03-07] MEDS: INSULIN LISPRO 100 UNIT/ML SUB-Q SCH ×3 (08:30→16:37)
[2021-03-07] MEDS ORDERED: SODIUM CHLORIDE 0.9% 100 ML IV PRN (10:00)
--- NOTE | 2021-03-07 13:33 | Electrocardiograph Report ---
[facility] Test Date: 2021-03-06 Test Time: 23:38:40 Pat Name: JADA WORRELL Department: Room: [place] [address] Gender: F Ekg/Ecg Technician: KVNG : 1970 Requested By: DONATO ESCOBAR Order Number: [id number] Reading MD: Alexander Smith Measurements Intervals [place] Rate: 72 P: 74 MD: 194 QRS: 31 QRSD: 93 T: 135 QT: 535 QTc: 587 Interpretive Statements Sinus rhythm Low voltage QRS Nonspecific ST and T wave abnormality Prolonged QT interval No previous ECG available for comparison Electronically Signed On 03-07-2021 13:32:50 EST by Alexander Smith
[2021-03-07] MEDS ORDERED: HEPARIN 10,000 UNITS/10 ML VIAL IV NR (14:42)
[2021-03-07 14:55] LABS: Hepatitis C Virus Antibody Non-Reactive (NonReactive)
[2021-03-07 14:57] LABS: Hepatitis B Surface Antigen Non-Reactive (Negative)
--- NOTE | 2021-03-07 15:35 | Event Note ---
Date: 03/07/21
[2021-03-07] MEDS ORDERED: HEPARIN 10,000 UNITS/10 ML VIAL IV PRN (16:00)
[2021-03-07 16:11] LABS: Hemoglobin 6.6 gm/dl (10.1-14.3)
[2021-03-07] MEDS: amLODIPine 10 MG TAB PO SCH (16:36)
[2021-03-07 16:42] LABS: INR 1.18 (0.87-1.13)
[2021-03-07 16:43] LABS: Partial Thromboplastin Time 35.1 Sec. (24.2-36.6)
--- NOTE | 2021-03-07 16:57 | Consultation ---
History of Present Illness Consult date: 03/07/21 Requesting physician: RAMIRO YEPEZ Consult reason: congestive heart failure History of present illness: Patient 50-year-old female with a past medical history of HFrEF, paroxysmal A. fib, hypertension, end-stage renal disease not on dialysis, history of CVA, and diabetes who was brought to the ED for shortness of breath/respiratory distress x1 day. Patient reports as of yesterday she started having difficulty breathing and by the evening knew she had to come to the hospital. Patient reports that she has not been taking her diuretics as prescribed since early January. She states that she had a cyst removed from her urethra at that time and since then she has not been able to control her bladder when taking diuretics. She reports she is compliant with her other medications. Of note on arrival to the ED patient's O2 saturation was 78% and was placed on CPAP and treated with albuterol Solu-Medrol and magnesium. Patient reports after receiving these treatments her breathing has improved. Patient reports dyspnea on exertion, shortness of breath, orthopnea. Patient denies palpitations, chest pain, bilateral lower extremity edema. Patient is followed by [facility] however she has previously been seen by our practice on a previous admission. Cardiology was consulted for heart failure. Past History Past Medical History: diabetes, ESRD, heart failure, hypertension, hyperlipidemia Past Surgical History: Other (Tubal ligation) Social history: no significant social history Family history: no significant family history Medications and Allergies Allergies Allergy/AdvReac Type Severity Reaction Status Date / Time lisinopril Allergy Unknown Verified 03/06/21 22:50 meperidine HCl [From Demerol] Allergy Itching Verified 03/28/20 07:34 penicillin Allergy Unknown Verified 03/28/20 07:34 Home Medications Medication Instructions Recorded Confirmed Last Taken Type AtorvaSTATin [Lipitor] 40 mg PO QHS 03/28/20 03/28/20 Unknown History Bumetanide 2 mg PO BID 03/28/20 03/28/20 Unknown History Cyclobenzaprine [Flexeril] 10 mg PO QDAY PRN 03/28/20 03/28/20 Unknown History Furosemide [Lasix TAB] 40 mg PO BID 03/28/20 03/28/20 Unknown History Hydralazine HCl 75 mg PO TID 03/28/20 03/28/20 Unknown History ISOSORBIDE MONOnitrate [Imdur ER] 30 mg PO DAILY 03/28/20 03/28/20 Unknown History Sevelamer Carbonate [Renvela] 800 mg PO TID 03/28/20 03/28/20 Unknown History allopurinoL [Zyloprim] 300 mg PO QDAY 03/28/20 03/28/20 Unknown History amLODIPine [Norvasc] 10 mg PO DAILY 03/28/20 03/28/20 Unknown History carvediloL [Coreg] 25 mg PO BID 03/28/20 03/28/20 Unknown History glipiZIDE [Glucotrol] 10 mg PO BID 03/28/20 03/28/20 Unknown History predniSONE 10 mg PO QDAY 03/28/20 03/28/20 Unknown History Active Meds: Active Medications Acetaminophen (Acetaminophen 325 Mg Tab) 650 mg PO Q4H PRN PRN Reason: Pain MILD(1-3)/Fever >100.5/GONZALEZ Amlodipine Besylate (Amlodipine 10 Mg Tab) 10 mg PO QDAY [facility] Last Admin: 03/07/21 16:36 Dose: 10 mg Documented by: Atorvastatin Calcium (Atorvastatin 40 Mg Tab) 40 mg PO QHS [facility] Carvedilol (Carvedilol 25 Mg Tab) 25 mg PO BID [facility] Dextrose (Dextrose 50% In Water (25gm) 50 Ml Syringe) 50 ml IV Q30MIN PRN; Protocol PRN Reason: Hypoglycemia Furosemide (Furosemide 40 Mg/4 Ml Inj) 40 mg IV BID@0600,1800 [facility] Last Admin: 03/07/21 06:38 Dose: 40 mg Documented by: Heparin Sodium (Porcine) (Heparin 10,000 Units/10 Ml Vial) 4,300 unit 40 unit/kg (4300 unit) IV Q6H PRN PRN Reason: Anti-Xa Assay < 0.1 units/ml Hydralazine HCl (Hydralazine 25 Mg Tab) 75 mg PO Q8HR [facility] Sodium Chloride (Nacl 0.9%) 100 mls @ 999 mls/hr IV YESENIA PRN PRN Reason: Hypotension Heparin Sodium/Sodium Chloride (Heparin/ 0.45% Nacl-25,000 Unit/500 Ml) 25,000 unit in 500 mls @ 30 mls/hr IV TITR IRVIN; Protocol Insulin Human Lispro (Insulin Lispro 100 Unit/Ml) 0 unit SUB-Q ACHS [facility]; Protocol Last Admin: 03/07/21 16:37 Dose: Not Given Documented by: Isosorbide Mononitrate (Isosorbide Mononitrate Er 30 Mg Tab) 30 mg PO QDAY [facility] Magnesium Hydroxide (Magnesium Hydroxide (Mom) Oral Liqd Udc) 30 ml PO Q4H PRN PRN Reason: Constipation Morphine Sulfate (Morphine 2 Mg/1 Ml Inj) 2 mg IV Q4H PRN PRN Reason: Pain, Moderate (4-6) Morphine Sulfate (Morphine 4 Mg/1 Ml Inj) 4 mg IV Q4H PRN PRN Reason: Pain , Severe (7-10) Ondansetron HCl (Ondansetron 4 Mg/2 Ml Inj) 4 mg IV Q8H PRN PRN Reason: Nausea And Vomiting Sodium Chloride (Sodium Chloride 0.9% 10 Ml Flush Syringe) 10 ml IV BID [facility] Last Admin: 03/07/21 12:41 Dose: Not Given Documented by: Sodium Chloride (Sodium Chloride 0.9% 10 Ml Flush Syringe) 10 ml IV PRN PRN PRN Reason: LINE FLUSH Review of Systems All systems: negative Constitutional: no weight loss, no fever, no chills Ears, nose, mouth and throat: no nasal discharge, no sinus pressure, no sinus pain Cardiovascular: orthopnea, shortness of breath, dyspnea on exertion, no chest pain, no palpitations, no rapid/irregular heart beat, no edema, no syncope Respiratory: shortness of breath, dyspnea on exertion Gastrointestinal: no abdominal pain, no nausea, no vomiting Musculoskeletal: no neck stiffness, no neck pain, no shooting arm pain Integumentary: no rash, no pruritis, no redness, no sores Neurological: no head injury, no transient paralysis, no paralysis Psychiatric: no anxiety, no memory loss Endocrine: no cold intolerance, no heat intolerance Hematologic/Lymphatic: no easy bruising, no easy bleeding Physical Examination Vital Signs Pulse Resp Pulse Ox 107 H 41 H 72 L 03/06/21 22:10 03/06/21 22:10 03/06/21 22:10 General appearance: no acute distress HEENT: Positive: PERRL Cardiac: Positive: Reg Rate and Rhythm Lungs: Positive: Decreased Breath Sounds Neuro: Positive: Grossly Intact Abdomen: Positive: Soft, Active Bowel Sounds Skin: Negative: Rash, Suspicious Lesions, Ulceration Extremities: Present: upper extr. pulses. Absent: edema Results 03/07/21 15:26 03/06/21 22:22 Cardiac Enzymes 03/06/21 03/06/21 03/06/21 Range/Units 22:22 22:22 22:22 WBC 15.6 H (4.5-11.0) K/mm3 RBC 2.60 L (3.65-5.03) M/mm3 Hgb 8.1 L (10.1-14.3) gm/dl Hct 26.4 L (30.3-42.9) % MCV 102 H (79-97) fl MCH 31 (28-32) pg MCHC 31 (30-34) % RDW 25.6 H (13.2-15.2) % Plt Count 235 (140-440) K/mm3 Add Manual Diff Complete Total Counted 100 Seg Neuts % (Manual) 87.0 H (40.0-70.0) % Lymphocytes % (Manual) 9.0 L (13.4-35.0) % Monocytes % (Manual) 3.0 (0.0-7.3) % Basophils % (Manual) 1.0 (0.0-1.8) % Nucleated RBC % 3.0 H (0.0-0.9) % Seg Neutrophils # Man 13.6 H (1.8-7.7) K/mm3 Band Neutrophils # 0.0 K/mm3 Lymphocytes # (Manual) 1.4 (1.2-5.4) K/mm3 Abs React Lymphs (Man) 0.0 K/mm3 Monocytes # (Manual) 0.5 (0.0-0.8) K/mm3 Eosinophils # (Manual) 0.0 (0.0-0.4) K/mm3 Basophils # (Manual) 0.2 H (0.0-0.1) K/mm3 Metamyelocytes # 0.0 K/mm3 Myelocytes # 0.0 K/mm3 Promyelocytes # 0.0 K/mm3 Blast Cells # 0.0 K/mm3 WBC Morphology Not Reportable Hypersegmented Neuts Not Reportable Hyposegmented Neuts Not Reportable Hypogranular Neuts Not Reportable Smudge Cells Not Reportable Toxic Granulation Not Reportable Toxic Vacuolation Not Reportable Dohle Bodies Not Reportable Pelger-Huet Anomaly Not Reportable Cliff Rods Not Reportable Platelet Estimate Consistent w auto Clumped Platelets Not Reportable Plt Clumps, EDTA Not Reportable Large Platelets Not Reportable Giant Platelets Not Reportable Platelet Satelliting Not Reportable Plt Morphology Comment Not Reportable RBC Morphology Not Reportable Dimorphic RBCs Not Reportable Polychromasia Not Reportable Hypochromasia Not Reportable Poikilocytosis Not Reportable Anisocytosis 2+ Microcytosis Not Reportable Macrocytosis Not Reportable Spherocytes Not Reportable Pappenheimer Bodies Not Reportable Sickle Cells Not Reportable Target Cells Not Reportable Tear Drop Cells Not Reportable Ovalocytes Not Reportable Helmet Cells Not Reportable [place] Bodies Not Reportable [place] Rings Not Reportable [place] Cells Not Reportable Bite Cells Not Reportable Crenated Cell Not Reportable Elliptocytes Not Reportable Acanthocytes (Spur) Not Reportable Rouleaux Not Reportable Hemoglobin C Crystals Not Reportable Schistocytes Not Reportable Malaria parasites Not Reportable Tyson Bodies Not Reportable Hem Pathologist Commnt No PT 15.4 H (12.2-14.9) Sec. INR 1.10 (0.87-1.13) APTT (24.2-36.6) Sec. ABG pH (7.350-7.450) pH Units ABG pCO2 mm Hg ABG pO2 (80.0-90.0) mm Hg ABG HCO3 (20.0-26.0) mmol/L ABG O2 Saturation (95.0-99.0) % ABG O2 Content (0.0-44) ABG Base Excess (-2.0-3.0) mmol/L ABG Hemoglobin (12.0-16.0) gm/dl ABG Carboxyhemoglobin (0.0-5.0) % ABG Methemoglobin (0.0-1.5) % Oxyhemoglobin (95.0-99.0) % FiO2 % Sodium 139 (137-145) mmol/L Potassium 4.3 (3.6-5.0) mmol/L Chloride 105.0 (98-107) mmol/L Carbon Dioxide 8 L* (22-30) mmol/L Anion Gap 30 mmol/L BUN 90 H (7-17) mg/dL Creatinine 6.3 H (0.6-1.2) mg/dL Estimated GFR 9 ml/min BUN/Creatinine Ratio 14 % Glucose 187 H (65-100) mg/dL POC Glucose (70-105) mg/dL Lactic Acid (0.7-2.0) mmol/L Calcium 9.4 (8.4-10.2) mg/dL Total Bilirubin 1.10 (0.1-1.2) mg/dL AST 11 (5-40) units/L ALT 9 (7-56) units/L Alkaline Phosphatase 282 H (35-129) units/L Total Creatine Kinase (30-135) units/L Troponin T 0.186 H* (0.00-0.029) ng/mL NT-Pro-B Natriuret Pep 07622 H (0-450) pg/mL Total Protein 8.7 H (6.3-8.2) g/dL Albumin 4.1 (3.9-5) g/dL Albumin/Globulin Ratio 0.9 % Triglycerides 161 H (2-149) mg/dL Cholesterol 180 (50-199) mg/dL LDL Cholesterol Direct 96 (50-130) mg/dL HDL Cholesterol 50 (40-59) mg/dL Cholesterol/HDL Ratio 3.60 % Hepatitis A IgM Ab (NonReactive) Hep Bs Antigen (Negative) Hep B Core IgM Ab (NonReactive) Hepatitis C Antibody (NonReactive) 03/06/21 03/07/21 03/07/21 Range/Units 22:22 00:11 03:01 WBC (4.5-11.0) K/mm3 RBC (3.65-5.03) M/mm3 Hgb (10.1-14.3) gm/dl Hct (30.3-42.9) % MCV (79-97) fl MCH (28-32) pg MCHC (30-34) % RDW (13.2-15.2) % Plt Count (140-440) K/mm3 Add Manual Diff Total Counted Seg Neuts % (Manual) (40.0-70.0) % Lymphocytes % (Manual) (13.4-35.0) % Monocytes % (Manual) (0.0-7.3) % Basophils % (Manual) (0.0-1.8) % Nucleated RBC % (0.0-0.9) % Seg Neutrophils # Man (1.8-7.7) K/mm3 Band Neutrophils # K/mm3 Lymphocytes # (Manual) (1.2-5.4) K/mm3 Abs React Lymphs (Man) K/mm3 Monocytes # (Manual) (0.0-0.8) K/mm3 Eosinophils # (Manual) (0.0-0.4) K/mm3 Basophils # (Manual) (0.0-0.1) K/mm3 Metamyelocytes # K/mm3 Myelocytes # K/mm3 Promyelocytes # K/mm3 Blast Cells # K/mm3 WBC Morphology Hypersegmented Neuts Hyposegmented Neuts Hypogranular Neuts Smudge Cells Toxic Granulation Toxic Vacuolation Dohle Bodies Pelger-Huet Anomaly [place] Rods Platelet Estimate Clumped Platelets Plt Clumps, EDTA Large Platelets Giant Platelets Platelet Satelliting Plt Morphology Comment RBC Morphology Dimorphic RBCs Polychromasia Hypochromasia Poikilocytosis Anisocytosis Microcytosis Macrocytosis Spherocytes Pappenheimer Bodies Sickle Cells Target Cells Tear Drop Cells Ovalocytes Helmet Cells [place] Bodies [place] Rings Gee Cells Bite Cells Crenated Cell Elliptocytes Acanthocytes (Spur) Rouleaux Hemoglobin C Crystals Schistocytes Malaria parasites Tyson Bodies Hem Pathologist Commnt PT (12.2-14.9) Sec. INR (0.87-1.13) APTT (24.2-36.6) Sec. ABG pH 7.239 L (7.350-7.450) pH Units ABG pCO2 32.6 mm Hg ABG pO2 117.9 H (80.0-90.0) mm Hg ABG HCO3 13.6 L (20.0-26.0) mmol/L ABG O2 Saturation 97.9 (95.0-99.0) % ABG O2 Content 9.5 (0.0-44) ABG Base Excess -12.7 L (-2.0-3.0) mmol/L ABG Hemoglobin 6.9 L (12.0-16.0) gm/dl ABG Carboxyhemoglobin 1.8 (0.0-5.0) % ABG Methemoglobin 0.4 (0.0-1.5) % Oxyhemoglobin 95.8 (95.0-99.0) % FiO2 70 % Sodium (137-145) mmol/L Potassium (3.6-5.0) mmol/L Chloride (98-107) mmol/L Carbon Dioxide (22-30) mmol/L Anion Gap mmol/L BUN (7-17) mg/dL Creatinine (0.6-1.2) mg/dL Estimated GFR ml/min BUN/Creatinine Ratio % Glucose (65-100) mg/dL POC Glucose (70-105) mg/dL Lactic Acid 4.40 H* 1.00 (0.7-2.0) mmol/L Calcium (8.4-10.2) mg/dL Total Bilirubin (0.1-1.2) mg/dL AST (5-40) units/L ALT (7-56) units/L Alkaline Phosphatase (35-129) units/L Total Creatine Kinase (30-135) units/L Troponin T (0.00-0.029) ng/mL NT-Pro-B Natriuret Pep (0-450) pg/mL Total Protein (6.3-8.2) g/dL Albumin (3.9-5) g/dL Albumin/Globulin Ratio % Triglycerides (2-149) mg/dL Cholesterol (50-199) mg/dL LDL Cholesterol Direct (50-130) mg/dL HDL Cholesterol (40-59) mg/dL Cholesterol/HDL Ratio % Hepatitis A IgM Ab (NonReactive) Hep Bs Antigen (Negative) Hep B Core IgM Ab (NonReactive) Hepatitis C Antibody (NonReactive) 03/07/21 03/07/21 03/07/21 Range/Units 08:28 10:35 10:35 WBC (4.5-11.0) K/mm3 RBC (3.65-5.03) M/mm3 Hgb (10.1-14.3) gm/dl Hct (30.3-42.9) % MCV (79-97) fl MCH (28-32) pg MCHC (30-34) % RDW (13.2-15.2) % Plt Count (140-440) K/mm3 Add Manual Diff Total Counted Seg Neuts % (Manual) (40.0-70.0) % Lymphocytes % (Manual) (13.4-35.0) % Monocytes % (Manual) (0.0-7.3) % Basophils % (Manual) (0.0-1.8) % Nucleated RBC % (0.0-0.9) % Seg Neutrophils # Man (1.8-7.7) K/mm3 Band Neutrophils # K/mm3 Lymphocytes # (Manual) (1.2-5.4) K/mm3 Abs React Lymphs (Man) K/mm3 Monocytes # (Manual) (0.0-0.8) K/mm3 Eosinophils # (Manual) (0.0-0.4) K/mm3 Basophils # (Manual) (0.0-0.1) K/mm3 Metamyelocytes # K/mm3 Myelocytes # K/mm3 Promyelocytes # K/mm3 Blast Cells # K/mm3 WBC Morphology Hypersegmented Neuts Hyposegmented Neuts Hypogranular Neuts Smudge Cells Toxic Granulation Toxic Vacuolation Dohle Bodies Pelger-Huet Anomaly [place] Rod[place] Platelet Estimate Clumped Platelets Plt Clumps, EDTA Large Platelets Giant Platelets Platelet Satelliting Plt Morphology Comment RBC Morphology Dimorphic RBCs Polychromasia Hypochromasia Poikilocytosis Anisocytosis Microcytosis Macrocytosis Spherocytes Pappenheimer Bodies Sickle Cells Target Cells Tear Drop Cells Ovalocytes Helmet Cells [place] Bodies [place] Gee Cells Bite Cells Crenated Cell Elliptocytes Acanthocytes (Spur) Rouleaux Hemoglobin C Crystals Schistocytes Malaria parasites Tyson Bodies Hem Pathologist Commnt PT (12.2-14.9) Sec. INR (0.87-1.13) APTT (24.2-36.6) Sec. ABG pH (7.350-7.450) pH Units ABG pCO2 mm Hg ABG pO2 (80.0-90.0) mm Hg ABG HCO3 (20.0-26.0) mmol/L ABG O2 Saturation (95.0-99.0) % ABG O2 Content (0.0-44) ABG Base Excess (-2.0-3.0) mmol/L ABG Hemoglobin (12.0-16.0) gm/dl ABG Carboxyhemoglobin (0.0-5.0) % ABG Methemoglobin (0.0-1.5) % Oxyhemoglobin (95.0-99.0) % FiO2 % Sodium (137-145) mmol/L Potassium (3.6-5.0) mmol/L Chloride (98-107) mmol/L Carbon Dioxide (22-30) mmol/L Anion Gap mmol/L BUN (7-17) mg/dL Creatinine (0.6-1.2) mg/dL Estimated GFR ml/min BUN/Creatinine Ratio % Glucose (65-100) mg/dL POC Glucose 106 H (70-105) mg/dL Lactic Acid (0.7-2.0) mmol/L Calcium (8.4-10.2) mg/dL Total Bilirubin (0.1-1.2) mg/dL AST (5-40) units/L ALT (7-56) units/L Alkaline Phosphatase (35-129) units/L Total Creatine Kinase 112 (30-135) units/L Troponin T (0.00-0.029) ng/mL NT-Pro-B Natriuret Pep (0-450) pg/mL Total Protein (6.3-8.2) g/dL Albumin (3.9-5) g/dL Albumin/Globulin Ratio % Triglycerides (2-149) mg/dL Cholesterol (50-199) mg/dL LDL Cholesterol Direct (50-130) mg/dL HDL Cholesterol (40-59) mg/dL Cholesterol/HDL Ratio % Hepatitis A IgM Ab Non-reactive (NonReactive) Hep Bs Antigen Non-reactive (Negative) Hep B Core IgM Ab Non-reactive (NonReactive) Hepatitis C Antibody Non-reactive (NonReactive) 03/07/21 03/07/21 03/07/21 Range/Units 11:37 15:26 15:26 WBC (4.5-11.0) K/mm3 RBC (3.65-5.03) M/mm3 Hgb 6.6 L (10.1-14.3) gm/dl Hct 21.0 L (30.3-42.9) % MCV (79-97) fl MCH (28-32) pg MCHC (30-34) % RDW (13.2-15.2) % Plt Count 141 (140-440) K/mm3 Add Manual Diff Total Counted Seg Neuts % (Manual) (40.0-70.0) % Lymphocytes % (Manual) (13.4-35.0) % Monocytes % (Manual) (0.0-7.3) % Basophils % (Manual) (0.0-1.8) % Nucleated RBC % (0.0-0.9) % Seg Neutrophils # Man (1.8-7.7) K/mm3 Band Neutrophils # K/mm3 Lymphocytes # (Manual) (1.2-5.4) K/mm3 Abs React Lymphs (Man) K/mm3 Monocytes # (Manual) (0.0-0.8) K/mm3 Eosinophils # (Manual) (0.0-0.4) K/mm3 Basophils # (Manual) (0.0-0.1) K/mm3 Metamyelocytes # K/mm3 Myelocytes # K/mm3 Promyelocytes # K/mm3 Blast Cells # K/mm3 WBC Morphology Hypersegmented Neuts Hyposegmented Neuts Hypogranular Neuts Smudge Cells Toxic Granulation Toxic Vacuolation Dohle Bodies Pelger-Huet Anomaly [place] Rod[place] Platelet Estimate Clumped Platelets Plt Clumps, EDTA Large Platelets Giant Platelets Platelet Satelliting Plt Morphology Comment RBC Morphology Dimorphic RBCs Polychromasia Hypochromasia Poikilocytosis Anisocytosis Microcytosis Macrocytosis Spherocytes Pappenheimer Bodies Sickle Cells Target Cells Tear Drop Cells Ovalocytes Helmet Cells [place] Bodies [place] Cells Bite Cells Crenated Cell Elliptocytes Acanthocytes (Spur) Rouleaux Hemoglobin C Crystals Schistocytes Malaria parasites Tyson Bodies Hem Pathologist Commnt PT 16.3 H (12.2-14.9) Sec. INR 1.18 H (0.87-1.13) APTT 35.1 (24.2-36.6) Sec. ABG pH (7.350-7.450) pH Units ABG pCO2 mm Hg ABG pO2 (80.0-90.0) mm Hg ABG HCO3 (20.0-26.0) mmol/L ABG O2 Saturation (95.0-99.0) % ABG O2 Content (0.0-44) ABG Base Excess (-2.0-3.0) mmol/L ABG Hemoglobin (12.0-16.0) gm/dl ABG Carboxyhemoglobin (0.0-5.0) % ABG Methemoglobin (0.0-1.5) % Oxyhemoglobin (95.0-99.0) % FiO2 % Sodium (137-145) mmol/L Potassium (3.6-5.0) mmol/L Chloride (98-107) mmol/L Carbon Dioxide (22-30) mmol/L Anion Gap mmol/L BUN (7-17) mg/dL Creatinine (0.6-1.2) mg/dL Estimated GFR ml/min BUN/Creatinine Ratio % Glucose (65-100) mg/dL POC Glucose 144 H (70-105) mg/dL Lactic Acid (0.7-2.0) mmol/L Calcium (8.4-10.2) mg/dL Total Bilirubin (0.1-1.2) mg/dL AST (5-40) units/L ALT (7-56) units/L Alkaline Phosphatase (35-129) units/L Total Creatine Kinase (30-135) units/L Troponin T (0.00-0.029) ng/mL NT-Pro-B Natriuret Pep (0-450) pg/mL Total Protein (6.3-8.2) g/dL Albumin (3.9-5) g/dL Albumin/Globulin Ratio % Triglycerides (2-149) mg/dL Cholesterol (50-199) mg/dL LDL Cholesterol Direct (50-130) mg/dL HDL Cholesterol (40-59) mg/dL Cholesterol/HDL Ratio % Hepatitis A IgM Ab (NonReactive) Hep Bs Antigen (Negative) Hep B Core IgM Ab (NonReactive) Hepatitis C Antibody (NonReactive) 03/07/21 Range/Units 16:18 WBC (4.5-11.0) K/mm3 RBC (3.65-5.03) M/mm3 Hgb (10.1-14.3) gm/dl Hct (30.3-42.9) % MCV (79-97) fl MCH (28-32) pg MCHC (30-34) % RDW (13.2-15.2) % Plt Count (140-440) K/mm3 Add Manual Diff Total Counted Seg Neuts % (Manual) (40.0-70.0) % Lymphocytes % (Manual) (13.4-35.0) % Monocytes % (Manual) (0.0-7.3) % Basophils % (Manual) (0.0-1.8) % Nucleated RBC % (0.0-0.9) % Seg Neutrophils # Man (1.8-7.7) K/mm3 Band Neutrophils # K/mm3 Lymphocytes # (Manual) (1.2-5.4) K/mm3 Abs React Lymphs (Man) K/mm3 Monocytes # (Manual) (0.0-0.8) K/mm3 Eosinophils # (Manual) (0.0-0.4) K/mm3 Basophils # (Manual) (0.0-0.1) K/mm3 Metamyelocytes # K/mm3 Myelocytes # K/mm3 Promyelocytes # K/mm3 Blast Cells # K/mm3 WBC Morphology Hypersegmented Neuts Hyposegmented Neuts Hypogranular Neuts Smudge Cells Toxic Granulation Toxic Vacuolation Dohle Bodies Pelger-Huet Anomaly [place] Rod[place] Platelet Estimate Clumped Platelets Plt Clumps, EDTA Large Platelets Giant Platelets Platelet Satelliting Plt Morphology Comment RBC Morphology Dimorphic RBCs Polychromasia Hypochromasia Poikilocytosis Anisocytosis Microcytosis Macrocytosis Spherocytes Pappenheimer Bodies Sickle Cells Target Cells Tear Drop Cells Ovalocytes Helmet Cells [place] Bodies [place] Gee Cells Bite Cells Crenated Cell Elliptocytes Acanthocytes (Spur) Rouleaux Hemoglobin C Crystals Schistocytes Malaria parasites Tyson Bodies Hem Pathologist Commnt PT (12.2-14.9) Sec. INR (0.87-1.13) APTT (24.2-36.6) Sec. ABG pH (7.350-7.450) pH Units ABG pCO2 mm Hg ABG pO2 (80.0-90.0) mm Hg ABG HCO3 (20.0-26.0) mmol/L ABG O2 Saturation (95.0-99.0) % ABG O2 Content (0.0-44) ABG Base Excess (-2.0-3.0) mmol/L ABG Hemoglobin (12.0-16.0) gm/dl ABG Carboxyhemoglobin (0.0-5.0) % ABG Methemoglobin (0.0-1.5) % Oxyhemoglobin (95.0-99.0) % FiO2 % Sodium (137-145) mmol/L Potassium (3.6-5.0) mmol/L Chloride (98-107) mmol/L Carbon Dioxide (22-30) mmol/L Anion Gap mmol/L BUN (7-17) mg/dL Creatinine (0.6-1.2) mg/dL Estimated GFR ml/min BUN/Creatinine Ratio % Glucose (65-100) mg/dL POC Glucose 92 (70-105) mg/dL Lactic Acid (0.7-2.0) mmol/L Calcium (8.4-10.2) mg/dL Total Bilirubin (0.1-1.2) mg/dL AST (5-40) units/L ALT (7-56) units/L Alkaline Phosphatase (35-129) units/L Total Creatine Kinase (30-135) units/L Troponin T (0.00-0.029) ng/mL NT-Pro-B Natriuret Pep (0-450) pg/mL Total Protein (6.3-8.2) g/dL Albumin (3.9-5) g/dL Albumin/Globulin Ratio % Triglycerides (2-149) mg/dL Cholesterol (50-199) mg/dL LDL Cholesterol Direct (50-130) mg/dL HDL Cholesterol (40-59) mg/dL Cholesterol/HDL Ratio % Hepatitis A IgM Ab (NonReactive) Hep Bs Antigen (Negative) Hep B Core IgM Ab (NonReactive) Hepatitis C Antibody (NonReactive) Coagulation 03/06/21 03/07/21 Range/Units 22:22 15:26 PT 15.4 H 16.3 H (12.2-14.9) Sec. INR 1.10 1.18 H (0.87-1.13) APTT 35.1 (24.2-36.6) Sec. Lipids 03/06/21 Range/Units 22:22 Triglycerides 161 H (2-149) mg/dL Cholesterol 180 (50-199) mg/dL HDL Cholesterol 50 (40-59) mg/dL Cholesterol/HDL Ratio 3.60 % CBC 03/06/21 03/07/21 Range/Units 22:22 15:26 WBC 15.6 H (4.5-11.0) K/mm3 RBC 2.60 L (3.65-5.03) M/mm3 Hgb 8.1 L 6.6 L (10.1-14.3) gm/dl Hct 26.4 L 21.0 L (30.3-42.9) % Plt Count 235 141 (140-440) K/mm3 Comprehensive Metabolic Panel 03/06/21 Range/Units 22:22 Sodium 139 (137-145) mmol/L Potassium 4.3 (3.6-5.0) mmol/L Chloride 105.0 (98-107) mmol/L Carbon Dioxide 8 L* (22-30) mmol/L BUN 90 H (7-17) mg/dL Creatinine 6.3 H (0.6-1.2) mg/dL Glucose 187 H (65-100) mg/dL Calcium 9.4 (8.4-10.2) mg/dL AST 11 (5-40) units/L ALT 9 (7-56) units/L Alkaline Phosphatase 282 H (35-129) units/L Total Protein 8.7 H (6.3-8.2) g/dL Albumin 4.1 (3.9-5) g/dL - Imaging and Cardiology Echo: report reviewed EKG interpretations - Telemetry EKG Rhythm: Sinus Rhythm - EKG Sinus rhythms and dysrhythmias: sinus rhythm Ventricular dysrhythmias: ventricular premature com Assessment and Plan Patient 50-year-old female with a past medical history of HFrEF, paroxysmal A. fib, hypertension, end-stage renal disease not on dialysis, history of CVA, and diabetes who was brought to the ED for shortness of breath/respiratory distress x1 day Echo 08/09/2020- LVEF 35 - 40%. LV systolic function is moderately decreased Grade II (moderate) diastolic dysfunction RV moderately dilated. RV systolic function is mildly reduced. Over all no significant change noted. LVEF appears mildly reduced Lexiscan stress test01/18/2021-Normal rest/stress SPECT myocardial perfusion images. There is no evidence of significant infarction or ischemia. There are no wall motion abnormalities. Left ventricular function is normal. The ejection fraction is 50-70%. Stress/ECG changes are normal. This study suggests a low risk for cardiovascular event and is associated with a cardiac mortality of less than 1% per year. There is no prior study for comparison Plan: EKG shows sinus 72 PVCs with no acute ischemic changes. Troponin noted to be elevated in setting of end-stage renal disease without dialysis. Also noted that troponins lower than previous troponins patient is likely at her baseline. Patient is also currently chest pain-free BNP noted to be elevated in setting of end-stage renal disease. Volume management per nephrology Due to proximal A. fib anticoagulation with heparin drip if procedure for Vas- Cathis to be done. If no procedures to be done resume outpatient Eliquis Resume outpatient medications: Amlodipine 10 mg p.o. daily, Coreg 25 mg p.o. twice daily, hydralazine 75 mg p.o. 3 times daily, Imdur 30 mg p.o. daily, atorvastatin 40 mg p.o. nightly Patient seen in conjunction with Dr. Davis who agrees with this plan of care. Will continue to follow - Patient Problems (1) Acute on chronic renal failure Current Visit: Yes Status: Acute Qualifiers: Acute renal failure type: unspecified Chronic kidney disease stage: stage 5, not on chronic dialysis Qualified Code(s): N17.9 - Acute kidney failure, unspecified; N18.5 - Chronic kidney disease, stage 5 (2) Acute respiratory failure with hypoxia Current Visit: Yes Status: Acute (3) Elevated troponin Current Visit: Yes Status: Acute (4) HTN (hypertension) Current Visit: Yes Status: Chronic Qualifiers: Hypertension type: renovascular hypertension Qualified Code(s): I15.0 - Renovascular hypertension (5) Cardiomyopathy Current Visit: No Status: Chronic (6) Diabetes mellitus Current Visit: No Status: Chronic (7) History of CVA (cerebrovascular accident) Current Visit: No Status: Chronic (8) Paroxysmal atrial fibrillation Current Visit: No Status: Chronic (9) Anemia Current Visit: No Status: Acute
[2021-03-07 17:03] LABS: Bilirubin,Urine NEG (Negative); Blood,Urine SM (Negative); Calcium Oxalate Crystals,Urine 2+; Color,Urine Yellow (Yellow); Protein,Urine >500 mg/dL (Negative); Urobilinogen,Urine < 2.0 mg/dL (<2.0)
[2021-03-07 17:06] LABS: Creatinine,Urine 103.6 mg/dL (0.1-20.0)
[2021-03-07 17:20] LABS: Protein/Creatinine Ratio,Urine 3.65
--- NOTE | 2021-03-07 17:48 | Consultation ---
History of Present Illness - Reason for Consult Consult date: 03/07/21 end stage renal disease - History of Present Illness This is a 50-year-old woman with CKD stage V, hypertension, congestive heart failure who presented to the emergency department with shortness of breath. In the emergency department she was noted to be fluid overloaded and labs were concerning for worsening renal function and acidosis. Nephrology was consulted for initiation of dialysis. Patient denies chest pain, presyncope and syncope. Past History Past Medical History: diabetes, ESRD, heart failure, hypertension, hyperlipidemia Past Surgical History: Other (Tubal ligation) Social history: no significant social history Family history: no significant family history Medications and Allergies Allergies Allergy/AdvReac Type Severity Reaction Status Date / Time lisinopril Allergy Unknown Verified 03/06/21 22:50 meperidine HCl [From Demerol] Allergy Itching Verified 03/28/20 07:34 penicillin Allergy Unknown Verified 03/28/20 07:34 Home Medications Medication Instructions Recorded Confirmed Last Taken Type AtorvaSTATin [Lipitor] 40 mg PO QHS 03/28/20 03/28/20 Unknown History Bumetanide 2 mg PO BID 03/28/20 03/28/20 Unknown History Cyclobenzaprine [Flexeril] 10 mg PO QDAY PRN 03/28/20 03/28/20 Unknown History Furosemide [Lasix TAB] 40 mg PO BID 03/28/20 03/28/20 Unknown History Hydralazine HCl 75 mg PO TID 03/28/20 03/28/20 Unknown History ISOSORBIDE MONOnitrate [Imdur ER] 30 mg PO DAILY 03/28/20 03/28/20 Unknown History Sevelamer Carbonate [Renvela] 800 mg PO TID 03/28/20 03/28/20 Unknown History allopurinoL [Zyloprim] 300 mg PO QDAY 03/28/20 03/28/20 Unknown History amLODIPine [Norvasc] 10 mg PO DAILY 03/28/20 03/28/20 Unknown History carvediloL [Coreg] 25 mg PO BID 03/28/20 03/28/20 Unknown History glipiZIDE [Glucotrol] 10 mg PO BID 03/28/20 03/28/20 Unknown History predniSONE 10 mg PO QDAY 03/28/20 03/28/20 Unknown History Active Meds: Active Medications Acetaminophen (Acetaminophen 325 Mg Tab) 650 mg PO Q4H PRN PRN Reason: Pain MILD(1-3)/Fever >100.5/GONZALEZ Amlodipine Besylate (Amlodipine 10 Mg Tab) 10 mg PO QDAY [facility] Last Admin: 03/07/21 16:36 Dose: 10 mg Documented by: Atorvastatin Calcium (Atorvastatin 40 Mg Tab) 40 mg PO QHS [facility] Carvedilol (Carvedilol 25 Mg Tab) 25 mg PO BID [facility] Dextrose (Dextrose 50% In Water (25gm) 50 Ml Syringe) 50 ml IV Q30MIN PRN; Protocol PRN Reason: Hypoglycemia Furosemide (Furosemide 40 Mg/4 Ml Inj) 40 mg IV BID@0600,1800 [facility] Last Admin: 03/07/21 06:38 Dose: 40 mg Documented by: Heparin Sodium (Porcine) (Heparin 10,000 Units/10 Ml Vial) 4,300 unit 40 unit/kg (4300 unit) IV Q6H PRN PRN Reason: Anti-Xa Assay < 0.1 units/ml Hydralazine HCl (Hydralazine 25 Mg Tab) 75 mg PO Q8HR [facility] Sodium Chloride (Nacl 0.9%) 100 mls @ 999 mls/hr IV YESENIA PRN PRN Reason: Hypotension Heparin Sodium/Sodium Chloride (Heparin/ 0.45% Nacl-25,000 Unit/500 Ml) 25,000 unit in 500 mls @ 30 mls/hr IV TITR [facility]; Protocol Insulin Human Lispro (Insulin Lispro 100 Unit/Ml) 0 unit SUB-Q ACHS IRVIN; Pr otocol Last Admin: 03/07/21 16:37 Dose: Not Given Documented by: Isosorbide Mononitrate (Isosorbide Mononitrate Er 30 Mg Tab) 30 mg PO QDAY [facility] Magnesium Hydroxide (Magnesium Hydroxide (Mom) Oral Liqd Udc) 30 ml PO Q4H PRN PRN Reason: Constipation Morphine Sulfate (Morphine 2 Mg/1 Ml Inj) 2 mg IV Q4H PRN PRN Reason: Pain, Moderate (4-6) Morphine Sulfate (Morphine 4 Mg/1 Ml Inj) 4 mg IV Q4H PRN PRN Reason: Pain , Severe (7-10) Ondansetron HCl (Ondansetron 4 Mg/2 Ml Inj) 4 mg IV Q8H PRN PRN Reason: Nausea And Vomiting Sodium Chloride (Sodium Chloride 0.9% 10 Ml Flush Syringe) 10 ml IV BID [facility] Last Admin: 03/07/21 12:41 Dose: Not Given Documented by: Sodium Chloride (Sodium Chloride 0.9% 10 Ml Flush Syringe) 10 ml IV PRN PRN PRN Reason: LINE FLUSH Review of Systems Constitutional: no fever, no chills Ears, nose, mouth and throat: no nasal congestion, no nasal discharge Cardiovascular: shortness of breath, no chest pain Respiratory: shortness of breath, no cough Gastrointestinal: no nausea, no vomiting Musculoskeletal: no muscle weakness, no muscle cramps Integumentary: no rash, no pruritis Neurological: no weakness, no parathesias Psychiatric: no anxiety, no paranoia Hematologic/Lymphatic: no easy bruising, no easy bleeding Exam - Vital Signs Vital signs: Vital Signs Pulse Resp Pulse Ox 107 H 41 H 72 L 03/06/21 22:10 03/06/21 22:10 03/06/21 22:10 - Physical Exam Narrative exam: General: No acute distress HEENT: Oral mucosa moist Neck: Supple, no JVD Chest: Decreased bibasilar breath sounds Heart: RRR, S1 and S2, no pericardial rub Abdomen: Soft, nontender, no renal bruit Extremity: No peripheral cyanosis, edema Neurological: Alert, awake, no asterixis Dermatology: No skin rash Psych: No agitation Musculoskeletal: No joint effusion Results - Lab Results 03/07/21 15:26 03/06/21 22:22 Most recent lab results ABG pH 7.239 pH Units (7.350-7.450) L 03/07/21 03:01 ABG pCO2 32.6 mm Hg 03/07/21 03:01 ABG pO2 117.9 mm Hg (80.0-90.0) H 03/07/21 03:01 ABG HCO3 13.6 mmol/L (20.0-26.0) L 03/07/21 03:01 ABG O2 Saturation 97.9 % (95.0-99.0) 03/07/21 03:01 Calcium 9.4 mg/dL (8.4-10.2) 03/06/21 22:22 Urine Creatinine 103.6 mg/dL (0.1-20.0) H 03/07/21 Unknown Urine Total Protein 378 mg/dL (5-11.8) H 03/07/21 Unknown Assessment and Plan Assessment - End-stage renal disease - Fluid overload - Hypertension - Anemia of ESRD - Hyperparathyroidism - Hyperphosphatemia Recommendations - Plan to start dialysis today after Vas-Cath placement, vascular surgery has been consulted and notified by phone - S/p bicarb amp x 2 - Continue home antihypertensives - Hold antihypertensives on hemodialysis days for systolics less than 160 - Epogen with HD - ESRD diet with 1.4 g/kg per day protein - Renally dose medication for creatinine clearance less than 15 cc/min
[2021-03-07] MEDS ORDERED: EPOETIN ALFA-EPBX 10,000 UNIT/1 ML VIAL IV PRN (17:59)
--- NOTE | 2021-03-07 19:28 | Consultation ---
History of Present Illness - Reason for Consult Consult date: 03/07/21 Acute on Chronic Renal Failure with Need for Vas-Cath Requesting physician: AMANDA WARREN - History of Present Illness The patient is a 50-year-old female with history of chronic renal insufficiency who was brought to the hospital secondary to severe shortness of breath and dyspnea on exertion. On initial presentation her oxygen saturations were in the mid to low 70s. She initially required BiPAP and Lasix. She states that she was referred to [facility] to be seen by either Dr. Collado or Dr. Greer for placement of long-term dialysis access however she was last seen on that visit and was rescheduled for next week. Prior to being set up for long-term access she had an acute exacerbation of her chronic renal insufficiency and required admission to the emergency department. She has no additional complaints at this time. Past History Past Medical History: diabetes, ESRD, heart failure, hypertension, hyperlipidemia Past Surgical History: Other (Tubal ligation) Social history: no significant social history Family history: no significant family history Medications and Allergies Allergies Allergy/AdvReac Type Severity Reaction Status Date / Time lisinopril Allergy Unknown Verified 03/08/21 03:21 meperidine HCl [From Demerol] Allergy Itching Verified 03/08/21 03:21 penicillin Allergy Unknown Verified 03/08/21 03:21 Home Medications Medication Instructions Recorded Confirmed Last Taken Type Bumetanide 4 mg PO BID 03/28/20 03/08/21 03/06/21 History Hydralazine HCl 75 mg PO TID 03/28/20 03/08/21 03/06/21 History ISOSORBIDE MONOnitrate [Imdur ER] 30 mg PO DAILY 03/28/20 03/08/21 03/06/21 History Sevelamer Carbonate [Renvela] 800 mg PO TID 03/28/20 03/08/21 03/08/21 History allopurinoL [Zyloprim] 300 mg PO QDAY 03/28/20 03/08/21 03/06/21 History amLODIPine [Norvasc] 10 mg PO DAILY 03/28/20 03/08/21 03/06/21 History carvediloL [Coreg] 25 mg PO BID 03/28/20 03/08/21 03/06/21 History glipiZIDE [Glucotrol] 10 mg PO BID 03/28/20 03/08/21 03/06/21 History calcitrioL [Rocaltrol] 0.5 mcg PO QDAY 03/08/21 03/08/21 03/06/21 History metOLazone [Zaroxolyn] 5 mg PO QDAY 03/08/21 03/08/21 03/06/21 History Active Meds: Active Medications Acetaminophen (Acetaminophen 325 Mg Tab) 650 mg PO Q4H PRN PRN Reason: Pain MILD(1-3)/Fever >100.5/GONZALEZ Amlodipine Besylate (Amlodipine 10 Mg Tab) 10 mg PO QDAY [facility] Last Admin: 03/07/21 16:36 Dose: 10 mg Documented by: Atorvastatin Calcium (Atorvastatin 40 Mg Tab) 40 mg PO QHS [facility] Carvedilol (Carvedilol 25 Mg Tab) 25 mg PO BID [facility] Dextrose (Dextrose 50% In Water (25gm) 50 Ml Syringe) 50 ml IV Q30MIN PRN; Protocol PRN Reason: Hypoglycemia Furosemide (Furosemide 40 Mg/4 Ml Inj) 40 mg IV BID@0600,1800 [facility] Last Admin: 03/07/21 17:44 Dose: 40 mg Documented by: Heparin Sodium (Porcine) (Heparin 10,000 Units/10 Ml Vial) 4,300 unit 40 unit/kg (4300 unit) IV Q6H PRN PRN Reason: Anti-Xa Assay < 0.1 units/ml Hydralazine HCl (Hydralazine 25 Mg Tab) 75 mg PO Q8HR [facility] Sodium Chloride (Nacl 0.9%) 100 mls @ 999 mls/hr IV YESENIA PRN PRN Reason: Hypotension Heparin Sodium/Sodium Chloride (Heparin/ 0.45% Nacl-25,000 Unit/500 Ml) 25,000 unit in 500 mls @ 30 mls/hr IV TITR [facility]; Protocol Insulin Human Lispro (Insulin Lispro 100 Unit/Ml) 0 unit SUB-Q ACHS [facility]; Protocol Last Admin: 03/07/21 16:37 Dose: Not Given Documented by: Isosorbide Mononitrate (Isosorbide Mononitrate Er 30 Mg Tab) 30 mg PO QDAY [facility] Magnesium Hydroxide (Magnesium Hydroxide (Mom) Oral Liqd Udc) 30 ml PO Q4H PRN PRN Reason: Constipation Morphine Sulfate (Morphine 2 Mg/1 Ml Inj) 2 mg IV Q4H PRN PRN Reason: Pain, Moderate (4-6) Morphine Sulfate (Morphine 4 Mg/1 Ml Inj) 4 mg IV Q4H PRN PRN Reason: Pain , Severe (7-10) Ondansetron HCl (Ondansetron 4 Mg/2 Ml Inj) 4 mg IV Q8H PRN PRN Reason: Nausea And Vomiting Sodium Chloride (Sodium Chloride 0.9% 10 Ml Flush Syringe) 10 ml IV BID [facility] Last Admin: 03/07/21 12:41 Dose: Not Given Documented by: Sodium Chloride (Sodium Chloride 0.9% 10 Ml Flush Syringe) 10 ml IV PRN PRN PRN Reason: LINE FLUSH Review of Systems All systems: negative Exam - Constitutional Vitals: Temp Pulse Resp BP Pulse Ox 77 24 136/76 90 03/07/21 17:30 03/07/21 17:30 03/07/21 17:30 03/07/21 17:30 General appearance: Present: no acute distress - Respiratory Respiratory effort: other (Mild distress with laying flat) - Cardiovascular Rhythm: regular - Extremities Extremity abnormal: edema (In bilateral lower extremity) - Abdominal Female genitourinary: Present: deferred - Rectal Rectal Exam: deferred Results - Labs CBC & Chem 7: 03/07/21 15:26 03/06/21 22:22 Labs: Abnormal lab results 03/06/21 03/06/21 03/06/21 Range/Units 22:22 22:22 22:22 WBC 15.6 H (4.5-11.0) K/mm3 RBC 2.60 L (3.65-5.03) M/mm3 Hgb 8.1 L (10.1-14.3) gm/dl Hct 26.4 L (30.3-42.9) % MCV 102 H (79-97) fl RDW 25.6 H (13.2-15.2) % Seg Neuts % (Manual) 87.0 H (40.0-70.0) % Lymphocytes % (Manual) 9.0 L (13.4-35.0) % Nucleated RBC % 3.0 H (0.0-0.9) % Seg Neutrophils # Man 13.6 H (1.8-7.7) K/mm3 Basophils # (Manual) 0.2 H (0.0-0.1) K/mm3 PT 15.4 H (12.2-14.9) Sec. INR (0.87-1.13) ABG pH (7.350-7.450) pH Units ABG pO2 (80.0-90.0) mm Hg ABG HCO3 (20.0-26.0) mmol/L ABG Base Excess (-2.0-3.0) mmol/L ABG Hemoglobin (12.0-16.0) gm/dl Carbon Dioxide 8 L* (22-30) mmol/L BUN 90 H (7-17) mg/dL Creatinine 6.3 H (0.6-1.2) mg/dL Glucose 187 H (65-100) mg/dL POC Glucose (70-105) mg/dL Lactic Acid (0.7-2.0) mmol/L Alkaline Phosphatase 282 H (35-129) units/L Troponin T 0.186 H* (0.00-0.029) ng/mL NT-Pro-B Natriuret Pep 70082 H (0-450) pg/mL Total Protein 8.7 H (6.3-8.2) g/dL Triglycerides 161 H (2-149) mg/dL Urine pH (5.0-7.0) Urine WBC (Auto) (0.0-6.0) /HPF U Epithel Cells (Auto) (0-13.0) /HPF Urine Creatinine (0.1-20.0) mg/dL Urine Total Protein (5-11.8) mg/dL 03/06/21 03/07/21 03/07/21 Range/Units 22:22 03:01 08:28 WBC (4.5-11.0) K/mm3 RBC (3.65-5.03) M/mm3 Hgb (10.1-14.3) gm/dl Hct (30.3-42.9) % MCV (79-97) fl RDW (13.2-15.2) % Seg Neuts % (Manual) (40.0-70.0) % Lymphocytes % (Manual) (13.4-35.0) % Nucleated RBC % (0.0-0.9) % Seg Neutrophils # Man (1.8-7.7) K/mm3 Basophils # (Manual) (0.0-0.1) K/mm3 PT (12.2-14.9) Sec. INR (0.87-1.13) ABG pH 7.239 L (7.350-7.450) pH Units ABG pO2 117.9 H (80.0-90.0) mm Hg ABG HCO3 13.6 L (20.0-26.0) mmol/L ABG Base Excess -12.7 L (-2.0-3.0) mmol/L ABG Hemoglobin 6.9 L (12.0-16.0) gm/dl Carbon Dioxide (22-30) mmol/L BUN (7-17) mg/dL Creatinine (0.6-1.2) mg/dL Glucose (65-100) mg/dL POC Glucose 106 H (70-105) mg/dL Lactic Acid 4.40 H* (0.7-2.0) mmol/L Alkaline Phosphatase (35-129) units/L Troponin T (0.00-0.029) ng/mL NT-Pro-B Natriuret Pep (0-450) pg/mL Total Protein (6.3-8.2) g/dL Triglycerides (2-149) mg/dL Urine pH (5.0-7.0) Urine WBC (Auto) (0.0-6.0) /HPF U Epithel Cells (Auto) (0-13.0) /HPF Urine Creatinine (0.1-20.0) mg/dL Urine Total Protein (5-11.8) mg/dL 03/07/21 03/07/21 03/07/21 Range/Units 11:37 15:26 15:26 WBC (4.5-11.0) K/mm3 RBC (3.65-5.03) M/mm3 Hgb 6.6 L (10.1-14.3) gm/dl Hct 21.0 L (30.3-42.9) % MCV (79-97) fl RDW (13.2-15.2) % Seg Neuts % (Manual) (40.0-70.0) % Lymphocytes % (Manual) (13.4-35.0) % Nucleated RBC % (0.0-0.9) % Seg Neutrophils # Man (1.8-7.7) K/mm3 Basophils # (Manual) (0.0-0.1) K/mm3 PT 16.3 H (12.2-14.9) Sec. INR 1.18 H (0.87-1.13) ABG pH (7.350-7.450) pH Units ABG pO2 (80.0-90.0) mm Hg ABG HCO3 (20.0-26.0) mmol/L ABG Base Excess (-2.0-3.0) mmol/L ABG Hemoglobin (12.0-16.0) gm/dl Carbon Dioxide (22-30) mmol/L BUN (7-17) mg/dL Creatinine (0.6-1.2) mg/dL Glucose (65-100) mg/dL POC Glucose 144 H (70-105) mg/dL Lactic Acid (0.7-2.0) mmol/L Alkaline Phosphatase (35-129) units/L Troponin T (0.00-0.029) ng/mL NT-Pro-B Natriuret Pep (0-450) pg/mL Total Protein (6.3-8.2) g/dL Triglycerides (2-149) mg/dL Urine pH (5.0-7.0) Urine WBC (Auto) (0.0-6.0) /HPF U Epithel Cells (Auto) (0-13.0) /HPF Urine Creatinine (0.1-20.0) mg/dL Urine Total Protein (5-11.8) mg/dL 03/07/21 03/07/21 Range/Units Unknown Unknown WBC (4.5-11.0) K/mm3 RBC (3.65-5.03) M/mm3 Hgb (10.1-14.3) gm/dl Hct (30.3-42.9) % MCV (79-97) fl RDW (13.2-15.2) % Seg Neuts % (Manual) (40.0-70.0) % Lymphocytes % (Manual) (13.4-35.0) % Nucleated RBC % (0.0-0.9) % Seg Neutrophils # Man (1.8-7.7) K/mm3 Basophils # (Manual) (0.0-0.1) K/mm3 PT (12.2-14.9) Sec. INR (0.87-1.13) ABG pH (7.350-7.450) pH Units ABG pO2 (80.0-90.0) mm Hg ABG HCO3 (20.0-26.0) mmol/L ABG Base Excess (-2.0-3.0) mmol/L ABG Hemoglobin (12.0-16.0) gm/dl Carbon Dioxide (22-30) mmol/L BUN (7-17) mg/dL Creatinine (0.6-1.2) mg/dL Glucose (65-100) mg/dL POC Glucose (70-105) mg/dL Lactic Acid (0.7-2.0) mmol/L Alkaline Phosphatase (35-129) units/L Troponin T (0.00-0.029) ng/mL NT-Pro-B Natriuret Pep (0-450) pg/mL Total Protein (6.3-8.2) g/dL Triglycerides (2-149) mg/dL Urine pH 8.0 H (5.0-7.0) Urine WBC (Auto) 28.0 H (0.0-6.0) /HPF U Epithel Cells (Auto) 30.0 H (0-13.0) /HPF Urine Creatinine 103.6 H (0.1-20.0) mg/dL Urine Total Protein 378 H (5-11.8) mg/dL Assessment and Plan The patient is a 50-year-old female with a history of acute on chronic renal insufficiency who is in need of urgent hemodialysis. She will require Vas-Cath for dialysis. She has been given the risk, benefits, and alternative procedures and consented to the procedure.
--- NOTE | 2021-03-07 19:28 | Operative Report ---
Operative Report Operative Report: Date of Procedure: 03/07/2021 Pre-operative Diagnosis: Acute on Chronic Renal Insufficiency Post-operative Diagnosis: Same Procedure(s): 1. Ultrasound-Guided Access Right Common Femoral Vein 2. Placement of 30 cm Trialyisis Vascath Surgeon: Nico Gandhi M.D. Pool Lifeguard: None Anesthesia: 2% Lidocaine EBL: Minimal Counts: Correct Complications: None Condition: Stable Findings: All ports easily aspirated and flushed at the completion of the case. Specimen: None Indication: The patient is a 50 year old female with a history of chronic renal insufficiency who presented with acute exacerbation of her renal failure with respiratory distress and metabolic acidosis. She is now is need of urgent hemodialysis. She requires a vascath for the initiation of dialysis. She was given the risk, benefits, and alternatives and consented to the procedure. Description of Procedure: The procedure was performed at the patient's bedside. Ultrasound was used to identify the right common femoral vein and confirm patency. Once patency was confirmed the right groin was prepped and draped in normal sterile fashion. The overlying skin and soft tissue was anesthetized with 2% lidocaine. An 11 blade was used to make a small stab incision and then an 18-gauge access needle was used ultrasound guidance into the right common femoral vein. A 0.035 J-wire was advanced to the vein and then the tract was sterilely dilated. A 30 cm Trialysis Vascath was advanced into the vein by Seldinger technique. All ports easily aspirated and flushed. The catheter was then secured in position with 0 silk suture in interrupted fashion and then dressed with a sterile dressing. The patient tolerated procedure well and remained in the emergency department in serious but stable condition.
[2021-03-08] MEDS: INSULIN LISPRO 100 UNIT/ML SUB-Q SCH ×5 (02:38→21:40)
[2021-03-08] MEDS: MORPHINE 4 MG/1 ML INJ IV PRN ×2 (03:03→20:51)
[2021-03-08] MEDS: carvediloL 25 MG TAB PO SCH ×3 (03:04→21:30)
[2021-03-08] MEDS: hydrALAZINE 25 MG TAB PO SCH ×4 (03:04→21:30)
[2021-03-08] MEDS ORDERED: HEPARIN 10,000 UNITS/10 ML VIAL IV ONE ×2 (03:59)
[2021-03-08] MEDS: HEPARIN/ 0.45% NACL DRIP 25,000 UNIT/500 ML BAG IV SCH (04:27)
[2021-03-08] MEDS: FUROSEMIDE 40 MG/4 ML INJ IV SCH ×2 (05:02→18:23)
[2021-03-08] MEDS ORDERED: SODIUM CHLORIDE 0.9% 500 ML 500 ML IV SCH (08:00)
--- NOTE | 2021-03-08 08:47 | Progress Note ---
Assessment and Plan Assessment and plan: #End-stage renal disease requiring dialysis -access: femoral vasc cath -plan for HD today, first session yesterday tolerated without issue -plan for permacath prior to discharge -Nephrology following, assistance appreciated -Outpatient dialysis to be set up by CM #Normocytic anemia -Hgb 6.5 -one unit of pRBC ordered to be given with dialysis -informed that the patient has antibodies by blood bank, currently searching for a compatible unit -Epo with HD #Heart failure reduced ejection fraction -Echocardiogram 07/2020: LVEF 35 to 40% with grade 2 diastolic dysfunction -continue GDMT and lasix 40 IV BID -Cardiology following, assistance appreciated #Acute hypoxic respiratory failure -improving -will wean O2 as tolerated -likely 2/2 to volume overload 2/2 ESRD #Metabolic acidosis -resolved post dialysis -likely 2/2 to ESRD #NSTEMI -troponin 0.586 -EKG w/o ST changes -likely type II 2/2 reduced renal function #Hypertension -BP controlled -continue amlodipine, coreg, hydralazine, imdur #Type 2 diabetes -controlled without pharmacotherapy #Paroxysmal atrial fibrillation -currently on heparin drip -will resume apixaban after Permacath placement Disposition Plan: Home pending dialysis chair Total Time Spent with Patient (Minutes): 20 minutes History Interval history: No acute events overnight. Patient tolerated dialysis last night. Plan for dialysis again today. Reports feeling better. Hospitalist Physical - Physical exam Narrative exam: GENERAL: Obese. Lying in bed, no distress HEENT: Nasal cannula at 2 L/min CHEST/LUNGS: Fine basilar crackles improving HEART/CARDIOVASCULAR: RRR. No murmur, rubs or gallops appreciated. ABDOMEN: +BS. NT/ND. NEURO: No focal motor deficit. EXTREMITIES: No cyanosis, clubbing or edema. PSYCH: Cooperative. - Constitutional Vitals: Temp Pulse Resp BP Pulse Ox 98.1 F 81 21 134/38 96 03/08/21 01:40 03/08/21 06:00 03/08/21 06:00 03/08/21 06:00 03/08/21 06:00 General appearance: Present: no acute distress HEART Score - HEART Score Troponin: Troponin T 0.186 ng/mL (0.00-0.029) H* 03/06/21 22:22 Results - Labs CBC & Chem 7: 03/09/21 04:46 03/09/21 04:46 Labs: Laboratory Last Values WBC 15.6 K/mm3 (4.5-11.0) H 03/06/21 22:22 RBC 2.60 M/mm3 (3.65-5.03) L 03/06/21 22:22 Hgb 6.6 gm/dl (10.1-14.3) L 03/07/21 15:26 Hct 21.0 % (30.3-42.9) L 03/07/21 15:26 MCV 102 fl (79-97) H 03/06/21 22:22 MCH 31 pg (28-32) 03/06/21 22:22 MCHC 31 % (30-34) 03/06/21 22:22 RDW 25.6 % (13.2-15.2) H 03/06/21 22:22 Plt Count 141 K/mm3 (140-440) 03/07/21 15:26 Add Manual Diff Complete 03/06/21 22:22 Total Counted 100 03/06/21 22:22 Seg Neuts % (Manual) 87.0 % (40.0-70.0) H 03/06/21 22:22 Lymphocytes % (Manual) 9.0 % (13.4-35.0) L 03/06/21 22:22 Monocytes % (Manual) 3.0 % (0.0-7.3) 03/06/21 22:22 Basophils % (Manual) 1.0 % (0.0-1.8) 03/06/21 22:22 Nucleated RBC % 3.0 % (0.0-0.9) H 03/06/21 22:22 Seg Neutrophils # Man 13.6 K/mm3 (1.8-7.7) H 03/06/21 22:22 Band Neutrophils # 0.0 K/mm3 03/06/21 22:22 Lymphocytes # (Manual) 1.4 K/mm3 (1.2-5.4) 03/06/21 22:22 Abs React Lymphs (Man) 0.0 K/mm3 03/06/21 22:22 Monocytes # (Manual) 0.5 K/mm3 (0.0-0.8) 03/06/21 22:22 Eosinophils # (Manual) 0.0 K/mm3 (0.0-0.4) 03/06/21 22:22 Basophils # (Manual) 0.2 K/mm3 (0.0-0.1) H 03/06/21 22:22 Metamyelocytes # 0.0 K/mm3 03/06/21 22:22 Myelocytes # 0.0 K/mm3 03/06/21 22:22 Promyelocytes # 0.0 K/mm3 03/06/21 22:22 Blast Cells # 0.0 K/mm3 03/06/21 22:22 WBC Morphology Not Reportable 03/06/21 22:22 Hypersegmented Neuts Not Reportable 03/06/21 22:22 Hyposegmented Neuts Not Reportable 03/06/21 22:22 Hypogranular Neuts Not Reportable 03/06/21 22:22 Smudge Cells Not Reportable 03/06/21 22:22 Toxic Granulation Not Reportable 03/06/21 22:22 Toxic Vacuolation Not Reportable 03/06/21 22:22 Dohle Bodies Not Reportable 03/06/21 22:22 Pelger-Huet Anomaly Not Reportable 03/06/21 22:22 Cliff Rods Not Reportable 03/06/21 22:22 Platelet Estimate Consistent w auto 03/06/21 22:22 Clumped Platelets Not Reportable 03/06/21 22:22 Plt Clumps, EDTA Not Reportable 03/06/21 22:22 Large Platelets Not Reportable 03/06/21 22:22 Giant Platelets Not Reportable 03/06/21 22:22 Platelet Satelliting Not Reportable 03/06/21 22:22 Plt Morphology Comment Not Reportable 03/06/21 22:22 RBC Morphology Not Reportable 03/06/21 22:22 Dimorphic RBCs Not Reportable 03/06/21 22:22 Polychromasia Not Reportable 03/06/21 22:22 Hypochromasia Not Reportable 03/06/21 22:22 Poikilocytosis Not Reportable 03/06/21 22:22 Anisocytosis 2+ 03/06/21 22:22 Microcytosis Not Reportable 03/06/21 22:22 Macrocytosis Not Reportable 03/06/21 22:22 Spherocytes Not Reportable 03/06/21 22:22 Pappenheimer Bodies Not Reportable 03/06/21 22:22 Sickle Cells Not Reportable 03/06/21 22:22 Target Cells Not Reportable 03/06/21 22:22 Tear Drop Cells Not Reportable 03/06/21 22:22 Ovalocytes Not Reportable 03/06/21 22:22 Helmet Cells Not Reportable 03/06/21 22:22 [place] Bodies Not Reportable 03/06/21 22:22 [place] Rings Not Reportable 03/06/21 22:22 [place] Cells Not Reportable 03/06/21 22:22 Bite Cells Not Reportable 03/06/21 22:22 Crenated Cell Not Reportable 03/06/21 22:22 Elliptocytes Not Reportable 03/06/21 22:22 Acanthocytes (Spur) Not Reportable 03/06/21 22:22 Rouleaux Not Reportable 03/06/21 22:22 Hemoglobin C Crystals Not Reportable 03/06/21 22:22 Schistocytes Not Reportable 03/06/21 22:22 Malaria parasites Not Reportable 03/06/21 22:22 Tyson Bodies Not Reportable 03/06/21 22:22 Hem Pathologist Commnt No 03/06/21 22:22 PT 16.3 Sec. (12.2-14.9) H 03/07/21 15:26 INR 1.18 (0.87-1.13) H 03/07/21 15:26 APTT 35.1 Sec. (24.2-36.6) 03/07/21 15:26 ABG pH 7.239 pH Units (7.350-7.450) L 03/07/21 03:01 ABG pCO2 32.6 mm Hg 03/07/21 03:01 ABG pO2 117.9 mm Hg (80.0-90.0) H 03/07/21 03:01 ABG HCO3 13.6 mmol/L (20.0-26.0) L 03/07/21 03:01 ABG O2 Saturation 97.9 % (95.0-99.0) 03/07/21 03:01 ABG O2 Content 9.5 (0.0-44) 03/07/21 03:01 ABG Base Excess -12.7 mmol/L (-2.0-3.0) L 03/07/21 03:01 ABG Hemoglobin 6.9 gm/dl (12.0-16.0) L 03/07/21 03:01 ABG Carboxyhemoglobin 1.8 % (0.0-5.0) 03/07/21 03:01 ABG Methemoglobin 0.4 % (0.0-1.5) 03/07/21 03:01 Oxyhemoglobin 95.8 % (95.0-99.0) 03/07/21 03:01 FiO2 70 % 03/07/21 03:01 Sodium 139 mmol/L (137-145) 03/06/21 22:22 Potassium 4.3 mmol/L (3.6-5.0) 03/06/21 22:22 Chloride 105.0 mmol/L (98-107) 03/06/21 22:22 Carbon Dioxide 8 mmol/L (22-30) L* 03/06/21 22:22 Anion Gap 30 mmol/L 03/06/21 22:22 BUN 90 mg/dL (7-17) H 03/06/21 22:22 Creatinine 6.3 mg/dL (0.6-1.2) H 03/06/21 22:22 Estimated GFR 9 ml/min 03/06/21 22:22 BUN/Creatinine Ratio 14 % 03/06/21 22:22 Glucose 187 mg/dL (65-100) H 03/06/21 22:22 POC Glucose 103 mg/dL (70-105) 03/08/21 07:51 Lactic Acid 1.00 mmol/L (0.7-2.0) 03/07/21 00:11 Calcium 9.4 mg/dL (8.4-10.2) 03/06/21 22:22 Total Bilirubin 1.10 mg/dL (0.1-1.2) 03/06/21 22:22 AST 11 units/L (5-40) 03/06/21 22:22 ALT 9 units/L (7-56) 03/06/21 22:22 Alkaline Phosphatase 282 units/L (35-129) H 03/06/21 22:22 Total Creatine Kinase 112 units/L (30-135) 03/07/21 10:35 Troponin T 0.186 ng/mL (0.00-0.029) H* 03/06/21 22:22 NT-Pro-B Natriuret Pep 46847 pg/mL (0-450) H 03/06/21 22:22 Total Protein 8.7 g/dL (6.3-8.2) H 03/06/21 22: Albumin 4.1 g/dL (3.9-5) 03/06/21 22: Albumin/Globulin Ratio 0.9 % 03/06/21 22: Triglycerides 161 mg/dL (2-149) H 03/06/21 22:22 Cholesterol 180 mg/dL (50-199) 03/06/21 22: LDL Cholesterol Direct 96 mg/dL (50-130) 03/06/21 22: HDL Cholesterol 50 mg/dL (40-59) 03/06/21 22: Cholesterol/HDL Ratio 3.60 % 03/06/21 22: Urine Color Yellow (Yellow) 03/07/21 Unknown Urine Turbidity Slightly cloudy (Clear) 03/07/21 Unknown Urine pH 8.0 (5.0-7.0) H 03/07/21 Unknown Ur Specific [place] 1.014 (1.003-1.030) 03/07/21 Unknown Urine Protein >500 mg/dL (Negative) 03/07/21 Unknown Urine Glucose (UA) Neg mg/dL (Negative) 03/07/21 Unknown Urine Ketones Neg mg/dL (Negative) 03/07/21 Unknown Urine Blood Sm (Negative) 03/07/21 Unknown Urine Nitrite Neg (Negative) 03/07/21 Unknown Urine Bilirubin Neg (Negative) 03/07/21 Unknown Urine Urobilinogen < 2.0 mg/dL (<2.0) 03/07/21 Unknown Ur Leukocyte Esterase Lg (Negative) 03/07/21 Unknown Urine WBC (Auto) 28.0 /HPF (0.0-6.0) H 03/07/21 Unknown Urine RBC (Auto) 5.0 /HPF (0.0-6.0) 03/07/21 Unknown U Epithel Cells (Auto) 30.0 /HPF (0-13.0) H 03/07/21 Unknown Calcium Oxalate Crystal 2+ 03/07/21 Unknown Urine Creatinine 103.6 mg/dL (0.1-20.0) H 03/07/21 Unknown Protein/Creatinin Ratio 3.65 03/07/21 Unknown Urine Total Protein 378 mg/dL (5-11.8) H 03/07/21 Unknown Hepatitis A IgM Ab Non-reactive (NonReactive) 03/07/21 10:35 Hep Bs Antigen Non-reactive (Negative) 03/07/21 10:35 Hep B Core IgM Ab Non-reactive (NonReactive) 03/07/21 10:35 Hepatitis C Antibody Non-reactive (NonReactive) 03/07/21 10:35 Motta/IV: Voiding Method External Female Catheter Active Medications - Current Medications Current Medications: Generic Name Dose Route Start Last Admin Trade Name Freq PRN Reason Stop Dose Admin Acetaminophen 650 mg 03/07/21 00:25 Acetaminophen 325 Mg Tab PO Q4H PRN Pain MILD(1-3)/Fever >100.5/GONZALEZ Amlodipine Besylate 10 mg 03/07/21 16:00 03/07/21 16:36 Amlodipine 10 Mg Tab PO 10 mg QDAY IRVIN Administration Atorvastatin Calcium 40 mg 03/07/21 22:00 03/08/21 03:05 Atorvastatin 40 Mg Tab PO Not Given QHS IRVIN Carvedilol 25 mg 03/07/21 22:00 03/08/21 03:04 Carvedilol 25 Mg Tab PO 25 mg BID IRVIN Administration Dextrose 50 ml 03/07/21 00:25 Dextrose 50% In Water (25gm) 50 Ml Syringe IV Q30MIN PRN Hypoglycemia Protocol Furosemide 40 mg 03/07/21 06:00 03/08/21 05:02 Furosemide 40 Mg/4 Ml Inj IV 40 mg BID@0600,1800 IRVIN Administration Heparin Sodium (Porcine) 4,300 unit 03/07/21 16:00 Heparin 10,000 Units/10 Ml Vial 40 unit/kg (4300 unit) IV Q6H PRN Anti-Xa Assay < 0.1 units/ml Hydralazine HCl 75 mg 03/07/21 22:00 03/08/21 05:02 Hydralazine 25 Mg Tab PO Not Given Q8HR IRVIN Sodium Chloride 100 mls @ 999 mls/hr 03/07/21 10:00 Nacl 0.9% IV YESENIA PRN Hypotension Heparin Sodium/Sodium Chloride 25,000 unit in 500 mls @ 30 mls/hr 03/07/21 15:00 03/08/21 04:27 Heparin/ 0.45% Nacl-25,000 Unit/500 Ml IV 1,450 units/hr TITR IRVIN 29 mls/hr Administration Protocol 1,500 UNITS/HR Sodium Chloride 500 mls @ 0 mls/hr 03/08/21 08:00 Nacl 0.9% 500 Ml IV 03/08/21 18:00 ONCE@0800 [facility] As Directed Insulin Human Lispro 0 unit 03/07/21 07:30 03/08/21 02:38 Insulin Lispro 100 Unit/Ml SUB-Q Not Given ACHS [facility] Protocol Isosorbide Mononitrate 30 mg 03/08/21 10:00 Isosorbide Mononitrate Er 30 Mg Tab PO QDAY [facility] Magnesium Hydroxide 30 ml 03/07/21 00:25 Magnesium Hydroxide (Mom) Oral Liqd Udc PO Q4H PRN Constipation Morphine Sulfate 2 mg 03/07/21 00:25 Morphine 2 Mg/1 Ml Inj IV Q4H PRN Pain, Moderate (4-6) Morphine Sulfate 4 mg 03/07/21 00:25 03/08/21 03:03 Morphine 4 Mg/1 Ml Inj IV 4 mg Q4H PRN Administration Pain , Severe (7-10) Ondansetron HCl 4 mg 03/07/21 00:25 Ondansetron 4 Mg/2 Ml Inj IV Q8H PRN Nausea And Vomiting Sodium Chloride 10 ml 03/07/21 10:00 03/08/21 03:05 Sodium Chloride 0.9% 10 Ml Flush Syringe IV 10 ml BID IRVIN Administration Sodium Chloride 10 ml 03/07/21 00:25 Sodium Chloride 0.9% 10 Ml Flush Syringe IV PRN PRN LINE FLUSH
[2021-03-08] MEDS ORDERED: FLU VACC QUAD 2021-22(6MOS UP)/PF 60 MCG/0.5 ML SYRINGE IM ONE (12:00)
[2021-03-08 12:14] LABS: Calcium 7.9 mg/dL (8.4-10.2)
[2021-03-08] MEDS ORDERED: EPOETIN ALFA-EPBX 2,000 UNIT/1 ML INJ IV ONE (15:00)
[2021-03-08] MEDS: amLODIPine 10 MG TAB PO SCH (16:06)
--- NOTE | 2021-03-08 16:30 | Progress Note ---
Assessment and Plan Assessment - End-stage renal disease - Fluid overload - Hypertension - Anemia of ESRD - Hyperparathyroidism - Hyperphosphatemia Recommendations - Repeated dialysis today - Continue home antihypertensives - Hold antihypertensives on hemodialysis days for systolics less than 160 - Epogen with HD - ESRD diet with 1.4 g/kg per day protein - Renally dose medication for creatinine clearance less than 15 cc/min - Permcath ordered for tomorrow, keep NPO after midnight - Case management consult to assist with HD placement Subjective Date of service: 03/08/21 Principal diagnosis: Shortness of breath Interval history: Patient was seen for his renal issues Nursing, interdisciplinary and consult notes were reviewed Vitals, input and output, medications and labs were reviewed Seen during dialysis Objective - Exam Narrative Exam: General: No acute distress HEENT: Oral mucosa moist Neck: Supple, no JVD Chest: Decreased bibasilar breath sounds Heart: RRR, S1 and S2, no pericardial rub Abdomen: Soft, nontender, no renal bruit Extremity: No peripheral cyanosis, edema Neurological: Alert, awake, no asterixis Dermatology: No skin rash Psych: No agitation Musculoskeletal: No joint effusion - Vital Signs Vital signs: Vital Signs - 12hr 03/08/21 03/08/21 03/08/21 04:30 04:36 04:40 Temperature Pulse Rate 81 82 83 Respiratory 18 18 19 Rate Blood Pressure O2 Sat by Pulse 94 93 97 Oximetry 03/08/21 03/08/21 03/08/21 04:46 04:50 04:56 Temperature Pulse Rate 83 82 81 Respiratory 17 21 19 Rate Blood Pressure 135/53 O2 Sat by Pulse 94 96 95 Oximetry 03/08/21 03/08/21 03/08/21 05:00 05:30 06:00 Temperature Pulse Rate 81 80 81 Respiratory 20 28 H 21 Rate Blood Pressure 120/45 120/45 134/38 O2 Sat by Pulse 95 96 96 Oximetry 03/08/21 03/08/21 03/08/21 06:30 07:00 07:30 Temperature Pulse Rate 102 H 101 H 72 Respiratory 33 H 32 H 22 Rate Blood Pressure 134/38 131/68 131/68 O2 Sat by Pulse 95 94 94 Oximetry 03/08/21 03/08/21 03/08/21 08:00 08:02 08:30 Temperature 99.1 F Pulse Rate 74 72 Respiratory 24 18 19 Rate Blood Pressure 126/66 126/66 O2 Sat by Pulse 93 92 95 Oximetry 03/08/21 03/08/21 03/08/21 09:00 09:30 10:00 Temperature Pulse Rate 71 72 75 Respiratory 24 16 21 Rate Blood Pressure 127/69 127/69 131/60 O2 Sat by Pulse 96 94 98 Oximetry 03/08/21 03/08/21 03/08/21 10:30 11:02 13:20 Temperature 98.4 F Pulse Rate 74 75 Respiratory 24 18 Rate Blood Pressure 131/60 144/65 O2 Sat by Pulse 99 93 100 Oximetry 03/08/21 03/08/21 03/08/21 15:40 15:49 15:53 Temperature Pulse Rate 79 Respiratory Rate Blood Pressure 131/60 O2 Sat by Pulse 87 93 Oximetry 03/08/21 03/08/21 03/08/21 16:00 16:07 16:08 Temperature Pulse Rate 80 82 83 Respiratory 21 Rate Blood Pressure 144/38 144/38 144/38 O2 Sat by Pulse 97 Oximetry - Lab 03/07/21 15:26 03/08/21 10:52 Most recent lab results ABG pH 7.239 pH Units (7.350-7.450) L 03/07/21 03:01 ABG pCO2 32.6 mm Hg 03/07/21 03:01 ABG pO2 117.9 mm Hg (80.0-90.0) H 03/07/21 03:01 ABG HCO3 13.6 mmol/L (20.0-26.0) L 03/07/21 03:01 ABG O2 Saturation 97.9 % (95.0-99.0) 03/07/21 03:01 Calcium 7.9 mg/dL (8.4-10.2) L D 03/08/21 10:52 Urine Creatinine 103.6 mg/dL (0.1-20.0) H 03/07/21 Unknown Urine Total Protein 378 mg/dL (5-11.8) H 03/07/21 Unknown Medications & Allergies - Medications Allergies/Adverse Reactions: Allergies lisinopril Allergy (Verified 03/08/21 03:21) Unknown meperidine HCl [From Demerol] Allergy (Verified 03/08/21 03:21) Itching penicillin Allergy (Verified 03/08/21 03:21) Unknown Home Medications: Home Medications Medication Instructions Recorded Confirmed Last Taken Type Bumetanide 4 mg PO BID 03/28/20 03/08/21 03/06/21 History Hydralazine HCl 75 mg PO TID 03/28/20 03/08/21 03/06/21 History ISOSORBIDE MONOnitrate [Imdur ER] 30 mg PO DAILY 03/28/20 03/08/21 03/06/21 History Sevelamer Carbonate [Renvela] 800 mg PO TID 03/28/20 03/08/21 03/08/21 History allopurinoL [Zyloprim] 300 mg PO QDAY 03/28/20 03/08/21 03/06/21 History amLODIPine [Norvasc] 10 mg PO DAILY 03/28/20 03/08/21 03/06/21 History carvediloL [Coreg] 25 mg PO BID 03/28/20 03/08/21 03/06/21 History glipiZIDE [Glucotrol] 10 mg PO BID 03/28/20 03/08/21 03/06/21 History calcitrioL [Rocaltrol] 0.5 mcg PO QDAY 03/08/21 03/08/21 03/06/21 History metOLazone [Zaroxolyn] 5 mg PO QDAY 03/08/21 03/08/21 03/06/21 History Active Medications: Generic Name Dose Route Start Last Admin Trade Name Freq PRN Reason Stop Dose Admin Acetaminophen 650 mg 03/07/21 00:25 Acetaminophen 325 Mg Tab PO Q4H PRN Pain MILD(1-3)/Fever >100.5/GONZALEZ Amlodipine Besylate 10 mg 03/07/21 16:00 03/08/21 16:06 Amlodipine 10 Mg Tab PO Not Given QDAY [facility] Atorvastatin Calcium 40 mg 03/07/21 22:00 03/08/21 03:05 Atorvastatin 40 Mg Tab PO Not Given QHS IRVIN Carvedilol 25 mg 03/07/21 22:00 03/08/21 16:07 Carvedilol 25 Mg Tab PO Not Given BID IRVIN Dextrose 50 ml 03/07/21 00:25 Dextrose 50% In Water (25gm) 50 Ml Syringe IV Q30MIN PRN Hypoglycemia Protocol Furosemide 40 mg 03/07/21 06:00 03/08/21 05:02 Furosemide 40 Mg/4 Ml Inj IV 40 mg BID@0600,1800 [facility] Administration Heparin Sodium (Porcine) 4,300 unit 03/07/21 16:00 Heparin 10,000 Units/10 Ml Vial 40 unit/kg (4300 unit) IV Q6H PRN Anti-Xa Assay < 0.1 units/ml Hydralazine HCl 75 mg 03/07/21 22:00 03/08/21 16:08 Hydralazine 25 Mg Tab PO Not Given Q8HR [facility] Sodium Chloride 100 mls @ 999 mls/hr 03/07/21 10:00 Nacl 0.9% IV YESENIA PRN Hypotension Heparin Sodium/Sodium Chloride 25,000 unit in 500 mls @ 30 mls/hr 03/07/21 15:00 03/08/21 16:04 Heparin/ 0.45% Nacl-25,000 Unit/500 Ml IV 1,350 units/hr TITR IRVIN 27 mls/hr Titration Protocol 1,500 UNITS/HR Sodium Chloride 500 mls @ 0 mls/hr 03/08/21 08:00 03/08/21 10:25 Nacl 0.9% 500 Ml IV 03/08/21 18:00 100 mls/hr ONCE@0800 [facility] Administration As Directed Insulin Human Lispro 0 unit 03/07/21 07:30 03/08/21 16:08 Insulin Lispro 100 Unit/Ml SUB-Q Not Given ACHS [facility] Protocol Isosorbide Mononitrate 30 mg 03/08/21 10:00 03/08/21 16:07 Isosorbide Mononitrate Er 30 Mg Tab PO Not Given QDAY [facility] Magnesium Hydroxide 30 ml 03/07/21 00:25 Magnesium Hydroxide (Mom) Oral Liqd Udc PO Q4H PRN Constipation Morphine Sulfate 2 mg 03/07/21 00:25 Morphine 2 Mg/1 Ml Inj IV Q4H PRN Pain, Moderate (4-6) Morphine Sulfate 4 mg 03/07/21 00:25 03/08/21 03:03 Morphine 4 Mg/1 Ml Inj IV 4 mg Q4H PRN Administration Pain , Severe (7-10) Ondansetron HCl 4 mg 03/07/21 00:25 Ondansetron 4 Mg/2 Ml Inj IV Q8H PRN Nausea And Vomiting Sodium Chloride 10 ml 03/07/21 10:00 03/08/21 10:25 Sodium Chloride 0.9% 10 Ml Flush Syringe IV 10 ml BID IRVIN Administration Sodium Chloride 10 ml 03/07/21 00:25 Sodium Chloride 0.9% 10 Ml Flush Syringe IV PRN PRN LINE FLUSH
--- NOTE | 2021-03-08 16:52 | Progress Note ---
Assessment and Plan Volume optimization via HD. Antihypertensive mgmt as per Nephro recs. Trend cardiac enzymes. Suspect Type 2 [place] in the setting of hypoxia. Recent Lexiscan MPI stress test 01/18/2021 revealed no evidence of ischemia. Pt remains anticoagulated with heparin gtt. Drop in Hgb noted, requiring 1u pRBCs. Closely monitor H/H. Plan to resume Eliquis when all interventions complete for AF / CVA prophylaxis. Pt seen in conjunction with Dr. Davis, who agrees with the assessment and plan of care. - Patient Problems (1) Acute respiratory failure with hypoxia Current Visit: Yes Status: Acute (2) Fluid overload Current Visit: Yes Status: Acute (3) ESRD (end stage renal disease) Current Visit: Yes Status: Acute (4) Acute on chronic anemia Current Visit: Yes Status: Acute (5) Chronic HFrEF (heart failure with reduced ejection fraction) Current Visit: Yes Status: Chronic (6) NICM (nonischemic cardiomyopathy) Current Visit: Yes Status: Chronic (7) NSTEMI (non-ST elevated myocardial infarction) Current Visit: Yes Status: Acute Plan to address problem: Type 2 (8) Paroxysmal atrial fibrillation Current Visit: Yes Status: Chronic (9) HTN (hypertension) Current Visit: Yes Status: Chronic Qualifiers: Hypertension type: renovascular hypertension Qualified Code(s): I15.0 - Renovascular hypertension (10) HLD (hyperlipidemia) Current Visit: Yes Status: Chronic Qualifiers: Hyperlipidemia type: mixed hyperlipidemia Qualified Code(s): E78.2 - Mixed hyperlipidemia (11) LV (left ventricular) mural thrombus Current Visit: Yes Status: Resolved (12) History of CVA (cerebrovascular accident) Current Visit: Yes Status: Chronic Subjective Date of service: 03/08/21 Principal diagnosis: ESRD Interval history: S/p Vascath placement. BP stable. Objective Last Vital Signs Temp 968.4 F H 03/08/21 14:45 Pulse 83 03/08/21 16:08 Resp 18 03/08/21 16:00 BP 144/38 03/08/21 16:08 Pulse Ox 96 03/08/21 16:00 - Physical Examination General: No Apparent Distress HEENT: Positive: EOMI, Normocephaly Neck: Positive: neck supple, trachea midline Cardiac: Positive: Reg Rate and Rhythm, S1/S2 Lungs: Positive: Decreased Breath Sounds Neuro: Positive: Grossly Intact Abdomen: Positive: Soft. Negative: Tender Skin: Negative: Rash Extremities: Present: lower extr. pulses. Absent: edema - Labs and Meds Comprehensive Metabolic Panel 03/08/21 Range/Units 10:52 Sodium 140 (137-145) mmol/L Potassium 3.9 (3.6-5.0) mmol/L Chloride 101.7 (98-107) mmol/L Carbon Dioxide 23 D (22-30) mmol/L BUN 37 H (7-17) mg/dL Creatinine 3.4 H (0.6-1.2) mg/dL Glucose 103 H (65-100) mg/dL Calcium 7.9 L D (8.4-10.2) mg/dL - Imaging and Cardiology EKG: report reviewed, image reviewed Pharmacologic stress test: report reviewed (01/18/2021 - negative for ischemia) Echo: report reviewed (07/2020 - EF 35-40%, grade II diastolic dysfunction, mod dilated RV, mildly reduced RVSF) - EKG Sinus rhythms and dysrhythmias: sinus rhythm Ventricular dysrhythmias: ventricular premature com Repolarization changes or abnormalities: nonspecific abnormality, ST segment, and/or T wave
[2021-03-09 05:10] LABS: Hemoglobin 6.7 gm/dl (10.1-14.3); Mean Corpuscular HGB Conc 32 % (30-34); Mean Corpuscular Volume 97 fl (79-97); Platelet Count 151 K/mm3 (140-440); Red Blood Count 2.15 M/mm3 (3.65-5.03)
[2021-03-09 05:11] LABS: Red Cell Distribution Width 24.2 % (13.2-15.2)
[2021-03-09 05:37] LABS: Calcium 7.6 mg/dL (8.4-10.2)
[2021-03-09] MEDS: hydrALAZINE 25 MG TAB PO SCH ×3 (06:29→21:20)
[2021-03-09] MEDS: FUROSEMIDE 40 MG/4 ML INJ IV SCH ×2 (06:30→17:30)
[2021-03-09] MEDS: INSULIN LISPRO 100 UNIT/ML SUB-Q SCH ×4 (09:34→21:24)
[2021-03-09] MEDS: carvediloL 25 MG TAB PO SCH ×2 (09:44→21:20)
[2021-03-09] MEDS: amLODIPine 10 MG TAB PO SCH (09:44)
--- NOTE | 2021-03-09 12:05 | Progress Note ---
Assessment and Plan Patient 50-year-old female with a past medical history of HFrEF, paroxysmal A. fib, hypertension, end-stage renal disease not on dialysis, history of CVA, and diabetes who was brought to the ED for shortness of breath/respiratory distress x1 day Echo 08/09/2020- LVEF 35 - 40%. LV systolic function is moderately decreased Grade II (moderate) diastolic dysfunction RV moderately dilated. RV systolic function is mildly reduced. Over all no significant change noted. LVEF appears mildly reduced Lexiscan stress test01/18/2021-Normal rest/stress SPECT myocardial perfusion images. There is no evidence of significant infarction or ischemia. There are no wall motion abnormalities. Left ventricular function is normal. The ejection fraction is 50-70%. Stress/ECG changes are normal. This study suggests a low risk for cardiovascular event and is associated with a cardiac mortality of less than 1% per year. There is no prior study for comparison Plan: Volume optimization via HD. Antihypertensive mgmt as per Nephro recs. Suspect NSTEMI tyep 2 in the setting of hypoxia and ESRD. Patient has no cardiac complaints Closely monitor H/H. Plan to resume Eliquis when all interventions complete for AF / CVA prophylaxis. Patient seen in conjunction with Dr. Davis who agrees with this plan of care. Will continue to follow - Patient Problems (1) Acute on chronic renal failure Current Visit: Yes Status: Acute Qualifiers: Acute renal failure type: unspecified Chronic kidney disease stage: stage 5, not on chronic dialysis Qualified Code(s): N17.9 - Acute kidney failure, unspecified; N18.5 - Chronic kidney disease, stage 5 (2) Acute respiratory failure with hypoxia Current Visit: Yes Status: Acute (3) Elevated troponin Current Visit: Yes Status: Acute (4) HTN (hypertension) Current Visit: Yes Status: Chronic Qualifiers: Hypertension type: renovascular hypertension Qualified Code(s): I15.0 - Renovascular hypertension (5) Cardiomyopathy Current Visit: Yes Status: Chronic (6) Diabetes mellitus Current Visit: Yes Status: Chronic Qualifiers: Diabetes mellitus type: type 2 (7) History of CVA (cerebrovascular accident) Current Visit: Yes Status: Chronic (8) Paroxysmal atrial fibrillation Current Visit: Yes Status: Chronic (9) Anemia Current Visit: No Status: Acute Subjective Date of service: 03/09/21 Principal diagnosis: ESRD Interval history: Patient sitting in bed receiving PRBCs. Patient reports feeling much better. Patient for permacath today Patient sinus 76 on monitors with no events Objective Vital Signs Temp Pulse Pulse Pulse Resp BP Pulse Ox 03/09/21 09:44 74 152/68 03/09/21 09:43 76 152/68 03/09/21 09:35 98.0 F 73 20 152/68 95 03/09/21 09:20 97.9 F 74 18 144/68 95 03/09/21 08:25 99 03/09/21 08:00 99.2 F 03/09/21 06:00 73 21 144/79 98 03/09/21 05:31 73 15 135/77 95 03/09/21 05:00 73 18 135/77 95 03/09/21 04:31 73 19 114/84 97 03/09/21 04:00 98.9 F 74 79 80 26 H 114/84 96 03/09/21 03:31 72 19 124/78 95 03/09/21 03:01 72 18 124/78 96 03/09/21 02:31 71 18 111/62 95 03/09/21 02:00 71 18 111/62 96 03/09/21 01:31 73 18 129/69 95 03/09/21 01:00 76 19 129/69 95 03/09/21 00:31 76 19 121/64 97 03/09/21 00:00 98.8 F 77 74 12 121/64 100 03/08/21 23:31 81 17 137/75 94 03/08/21 23:11 78 16 137/75 99 03/08/21 23:00 78 18 137/75 96 03/08/21 22:31 81 14 137/81 96 03/08/21 22:00 110 H 12 137/81 98 03/08/21 21:31 79 15 164/86 98 03/08/21 21:30 80 164/86 03/08/21 21:01 82 20 162/94 96 03/08/21 20:31 79 23 143/76 89 03/08/21 20:00 98.6 F 82 74 79 12 143/76 100 03/08/21 19:31 83 16 144/75 95 03/08/21 19:00 82 18 144/75 94 03/08/21 18:31 84 21 135/76 96 03/08/21 18:00 82 27 H 135/76 93 03/08/21 17:31 85 21 121/69 95 03/08/21 17:00 83 27 H 121/69 93 03/08/21 16:31 82 17 144/75 94 03/08/21 16:08 83 144/38 03/08/21 16:07 82 144/38 03/08/21 16:00 99.2 F 80 74 18 144/38 96 03/08/21 15:53 93 03/08/21 15:49 79 131/60 03/08/21 15:40 87 03/08/21 14:45 968.4 F H 78 18 154/75 03/08/21 14:30 80 160/99 03/08/21 14:15 77 168/58 03/08/21 14:00 72 123/86 03/08/21 13:45 76 179/77 03/08/21 13:30 76 154/72 03/08/21 13:20 98.4 F 75 18 144/65 100 03/08/21 13:15 75 144/65 03/08/21 13:00 75 139/70 03/08/21 12:45 77 149/75 03/08/21 12:30 76 155/86 03/08/21 12:15 75 144/78 Pulse Ox 03/09/21 09:44 03/09/21 09:43 03/09/21 09:35 03/09/21 09:20 03/09/21 08:25 03/09/21 08:00 03/09/21 06:00 03/09/21 05:31 03/09/21 05:00 03/09/21 04:31 03/09/21 04:00 03/09/21 03:31 03/09/21 03:01 03/09/21 02:31 03/09/21 02:00 03/09/21 01:31 03/09/21 01:00 03/09/21 00:31 03/09/21 00:00 03/08/21 23:31 03/08/21 23:11 03/08/21 23:00 03/08/21 22:31 03/08/21 22:00 03/08/21 21:31 03/08/21 21:30 03/08/21 21:01 03/08/21 20:31 03/08/21 20:00 03/08/21 19:31 03/08/21 19:00 03/08/21 18:31 03/08/21 18:00 03/08/21 17:31 03/08/21 17:00 03/08/21 16:31 03/08/21 16:08 03/08/21 16:07 03/08/21 16:00 03/08/21 15:53 03/08/21 15:49 03/08/21 15:40 03/08/21 14:45 100 03/08/21 14:30 03/08/21 14:15 03/08/21 14:00 03/08/21 13:45 03/08/21 13:30 03/08/21 13:20 03/08/21 13:15 03/08/21 13:00 03/08/21 12:45 03/08/21 12:30 03/08/21 12:15 - Physical Examination General: No Apparent Distress HEENT: Positive: EOMI, Normocephaly Neck: Positive: neck supple, trachea midline Cardiac: Positive: Reg Rate and Rhythm Lungs: Positive: Decreased Breath Sounds Neuro: Positive: Grossly Intact Abdomen: Positive: Soft. Negative: Tender Skin: Negative: Rash Extremities: Present: lower extr. pulses. Absent: edema - Labs and Meds CBC 03/09/21 Range/Units 04:46 WBC 8.1 (4.5-11.0) K/mm3 RBC 2.15 L (3.65-5.03) M/mm3 Hgb 6.7 L (10.1-14.3) gm/dl Hct 21.0 L (30.3-42.9) % Plt Count 151 (140-440) K/mm3 Comprehensive Metabolic Panel 03/08/21 03/09/21 Range/Units 10:52 04:46 Sodium 140 137 (137-145) mmol/L Potassium 3.9 3.9 (3.6-5.0) mmol/L Chloride 101.7 99.5 (98-107) mmol/L Carbon Dioxide 23 D 26 (22-30) mmol/L BUN 37 H 18 H (7-17) mg/dL Creatinine 3.4 H 2.8 H (0.6-1.2) mg/dL Glucose 103 H 108 H (65-100) mg/dL Calcium 7.9 L D 7.6 L (8.4-10.2) mg/dL - Imaging and Cardiology EKG: report reviewed, image reviewed Echo: report reviewed (07/2020 - EF 35-40%, grade II diastolic dysfunction, mod dilated RV, mildly reduced RVSF) - Telemetry EKG Rhythm: Sinus Rhythm - EKG Sinus rhythms and dysrhythmias: sinus rhythm Ventricular dysrhythmias: ventricular premature com Repolarization changes or abnormalities: nonspecific abnormality, ST segment, and/or T wave
--- NOTE | 2021-03-09 14:52 | Progress Note ---
Assessment and Plan Assessment and plan: #End-stage renal disease requiring dialysis -access: femoral vasc cath -HD yesterday -Permacath placement today by Vascular surgery -Nephrology following, assistance appreciated -Outpatient dialysis to be set up by CM #Normocytic anemia -Hgb 6.7 -received 1 unit today; delayed due to finding compatible match -repeat H&H -Epo with HD #Heart failure reduced ejection fraction -Echocardiogram 07/2020: LVEF 35 to 40% with grade 2 diastolic dysfunction -continue GDMT and lasix 40 IV BID -Cardiology following, assistance appreciated #Acute hypoxic respiratory failure -improving -will wean O2 as tolerated -likely 2/2 to volume overload 2/2 ESRD #Metabolic acidosis -resolved post dialysis -likely 2/2 to ESRD #NSTEMI -troponin 0.586 -EKG w/o ST changes -likely type II 2/2 reduced renal function #Hypertension -BP controlled -continue amlodipine, coreg, hydralazine, imdur #Type 2 diabetes -controlled without pharmacotherapy #Paroxysmal atrial fibrillation -currently on heparin drip -will resume apixaban after Permacath placement Disposition Plan: Home pending outpatient dialysis center Total Time Spent with Patient (Minutes): 20 minutes History Interval history: No acute events overnight. Patient receiving blood. Denies chest pain and shortness of breath has resolved. No complaints at this time. Hospitalist Physical - Physical exam Narrative exam: GENERAL: Obese. Lying in bed, no distress HEENT: Nasal cannula at 1 L/min CHEST/LUNGS: Fine basilar crackles improving HEART/CARDIOVASCULAR: RRR. No murmur, rubs or gallops appreciated. ABDOMEN: +BS. NT/ND. NEURO: No focal motor deficit. EXTREMITIES: No cyanosis, clubbing or edema. PSYCH: Cooperative. - Constitutional Vitals: Temp Pulse Resp BP Pulse Ox 99.4 F 73 17 122/75 97 03/09/21 12:00 03/09/21 13:31 03/09/21 13:31 03/09/21 13:31 03/09/21 13:31 General appearance: Present: no acute distress HEART Score - HEART Score Troponin: Troponin T 0.586 ng/mL (0.00-0.029) H* D 03/08/21 18:21 Results - Labs CBC & Chem 7: 03/09/21 04:46 03/09/21 04:46 Labs: Laboratory Last Values WBC 8.1 K/mm3 (4.5-11.0) 03/09/21 04:46 RBC 2.15 M/mm3 (3.65-5.03) L 03/09/21 04:46 Hgb 6.7 gm/dl (10.1-14.3) L 03/09/21 04:46 Hct 21.0 % (30.3-42.9) L 03/09/21 04:46 MCV 97 fl (79-97) 03/09/21 04:46 MCH 31 pg (28-32) 03/09/21 04:46 MCHC 32 % (30-34) 03/09/21 04:46 RDW 24.2 % (13.2-15.2) H 03/09/21 04:46 Plt Count 151 K/mm3 (140-440) 03/09/21 04:46 Add Manual Diff Complete 03/06/21 22:22 Total Counted 100 03/06/21 22:22 Seg Neuts % (Manual) 87.0 % (40.0-70.0) H 03/06/21 22:22 Lymphocytes % (Manual) 9.0 % (13.4-35.0) L 03/06/21 22:22 Monocytes % (Manual) 3.0 % (0.0-7.3) 03/06/21 22:22 Basophils % (Manual) 1.0 % (0.0-1.8) 03/06/21 22:22 Nucleated RBC % 3.0 % (0.0-0.9) H 03/06/21 22:22 Seg Neutrophils # Man 13.6 K/mm3 (1.8-7.7) H 03/06/21 22:22 Band Neutrophils # 0.0 K/mm3 03/06/21 22:22 Lymphocytes # (Manual) 1.4 K/mm3 (1.2-5.4) 03/06/21 22:22 Abs React Lymphs (Man) 0.0 K/mm3 03/06/21 22:22 Monocytes # (Manual) 0.5 K/mm3 (0.0-0.8) 03/06/21 22:22 Eosinophils # (Manual) 0.0 K/mm3 (0.0-0.4) 03/06/21 22:22 Basophils # (Manual) 0.2 K/mm3 (0.0-0.1) H 03/06/21 22:22 Metamyelocytes # 0.0 K/mm3 03/06/21 22:22 Myelocytes # 0.0 K/mm3 03/06/21 22:22 Promyelocytes # 0.0 K/mm3 03/06/21 22:22 Blast Cells # 0.0 K/mm3 03/06/21 22:22 WBC Morphology Not Reportable 03/06/21 22:22 Hypersegmented Neuts Not Reportable 03/06/21 22:22 Hyposegmented Neuts Not Reportable 03/06/21 22:22 Hypogranular Neuts Not Reportable 03/06/21 22:22 Smudge Cells Not Reportable 03/06/21 22:22 Toxic Granulation Not Reportable 03/06/21 22:22 Toxic Vacuolation Not Reportable 03/06/21 22:22 Dohle Bodies Not Reportable 03/06/21 22:22 Pelger-Huet Anomaly Not Reportable 03/06/21 22:22 Cliff Rods Not Reportable 03/06/21 22:22 Platelet Estimate Consistent w auto 03/06/21 22:22 Clumped Platelets Not Reportable 03/06/21 22:22 Plt Clumps, EDTA Not Reportable 03/06/21 22:22 Large Platelets Not Reportable 03/06/21 22:22 Giant Platelets Not Reportable 03/06/21 22:22 Platelet Satelliting Not Reportable 03/06/21 22:22 Plt Morphology Comment Not Reportable 03/06/21 22:22 RBC Morphology Not Reportable 03/06/21 22:22 Dimorphic RBCs Not Reportable 03/06/21 22:22 Polychromasia Not Reportable 03/06/21 22:22 Hypochromasia Not Reportable 03/06/21 22:22 Poikilocytosis Not Reportable 03/06/21 22:22 Anisocytosis 2+ 03/06/21 22:22 Microcytosis Not Reportable 03/06/21 22:22 Macrocytosis Not Reportable 03/06/21 22:22 Spherocytes Not Reportable 03/06/21 22:22 Pappenheimer Bodies Not Reportable 03/06/21 22:22 Sickle Cells Not Reportable 03/06/21 22:22 Target Cells Not Reportable 03/06/21 22:22 Tear Drop Cells Not Reportable 03/06/21 22:22 Ovalocytes Not Reportable 03/06/21 22:22 Helmet Cells Not Reportable 03/06/21 22:22 Sosa-Rialto Bodies Not Reportable 03/06/21 22:22 [place] Rings Not Reportable 03/06/21 22:22 Gee Cells Not Reportable 03/06/21 22:22 Bite Cells Not Reportable 03/06/21 22:22 Crenated Cell Not Reportable 03/06/21 22:22 Elliptocytes Not Reportable 03/06/21 22:22 Acanthocytes (Spur) Not Reportable 03/06/21 22:22 Rouleaux Not Reportable 03/06/21 22:22 Hemoglobin C Crystals Not Reportable 03/06/21 22:22 Schistocytes Not Reportable 03/06/21 22:22 Malaria parasites Not Reportable 03/06/21 22:22 Tyson Bodies Not Reportable 03/06/21 22:22 Hem Pathologist Commnt No 03/06/21 22:22 PT 16.3 Sec. (12.2-14.9) H 03/07/21 15:26 INR 1.18 (0.87-1.13) H 03/07/21 15:26 APTT 35.1 Sec. (24.2-36.6) 03/07/21 15:26 Heparin Anti-Xa Level 0.19 U.I./ml (0.3-0.7) L 03/08/21 22:52 ABG pH 7.239 pH Units (7.350-7.450) L 03/07/21 03:01 ABG pCO2 32.6 mm Hg 03/07/21 03:01 ABG pO2 117.9 mm Hg (80.0-90.0) H 03/07/21 03:01 ABG HCO3 13.6 mmol/L (20.0-26.0) L 03/07/21 03:01 ABG O2 Saturation 97.9 % (95.0-99.0) 03/07/21 03:01 ABG O2 Content 9.5 (0.0-44) 03/07/21 03:01 ABG Base Excess -12.7 mmol/L (-2.0-3.0) L 03/07/21 03:01 ABG Hemoglobin 6.9 gm/dl (12.0-16.0) L 03/07/21 03:01 ABG Carboxyhemoglobin 1.8 % (0.0-5.0) 03/07/21 03:01 ABG Methemoglobin 0.4 % (0.0-1.5) 03/07/21 03:01 Oxyhemoglobin 95.8 % (95.0-99.0) 03/07/21 03:01 FiO2 70 % 03/07/21 03:01 Sodium 137 mmol/L (137-145) 03/09/21 04:46 Potassium 3.9 mmol/L (3.6-5.0) 03/09/21 04:46 Chloride 99.5 mmol/L (98-107) 03/09/21 04:46 Carbon Dioxide 26 mmol/L (22-30) 03/09/21 04:46 Anion Gap 15 mmol/L 03/09/21 04:46 BUN 18 mg/dL (7-17) H 03/09/21 04:46 Creatinine 2.8 mg/dL (0.6-1.2) H 03/09/21 04:46 Estimated GFR 22 ml/min 03/09/21 04:46 BUN/Creatinine Ratio 6 % 03/09/21 04:46 Glucose 108 mg/dL (65-100) H 03/09/21 04:46 POC Glucose 105 mg/dL (70-105) 03/08/21 21:38 Lactic Acid 1.00 mmol/L (0.7-2.0) 03/07/21 00:11 Calcium 7.6 mg/dL (8.4-10.2) L 03/09/21 04:46 Total Bilirubin 1.10 mg/dL (0.1-1.2) 03/06/21 22:22 AST 11 units/L (5-40) 03/06/21 22:22 ALT 9 units/L (7-56) 03/06/21 22:22 Alkaline Phosphatase 282 units/L (35-129) H 03/06/21 22:22 Total Creatine Kinase 112 units/L (30-135) 03/07/21 10:35 Troponin T 0.586 ng/mL (0.00-0.029) H* D 03/08/21 18:21 NT-Pro-B Natriuret Pep 66168 pg/mL (0-450) H 03/06/21 22:22 Total Protein 8.7 g/dL (6.3-8.2) H 03/06/21 22:22 Albumin 4.1 g/dL (3.9-5) 03/06/21 22: Albumin/Globulin Ratio 0.9 % 03/06/21 22:22 Triglycerides 161 mg/dL (2-149) H 03/06/21 22:22 Cholesterol 180 mg/dL (50-199) 03/06/21 22: LDL Cholesterol Direct 96 mg/dL (50-130) 03/06/21 22: HDL Cholesterol 50 mg/dL (40-59) 03/06/21 22: Cholesterol/HDL Ratio 3.60 % 03/06/21 22:22 Urine Color Yellow (Yellow) 03/07/21 Unknown Urine Turbidity Slightly cloudy (Clear) 03/07/21 Unknown Urine pH 8.0 (5.0-7.0) H 03/07/21 Unknown Ur Specific [place] 1.014 (1.003-1.030) 03/07/21 Unknown Urine Protein >500 mg/dL (Negative) 03/07/21 Unknown Urine Glucose (UA) Neg mg/dL (Negative) 03/07/21 Unknown Urine Ketones Neg mg/dL (Negative) 03/07/21 Unknown Urine Blood Sm (Negative) 03/07/21 Unknown Urine Nitrite Neg (Negative) 03/07/21 Unknown Urine Bilirubin Neg (Negative) 03/07/21 Unknown Urine Urobilinogen < 2.0 mg/dL (<2.0) 03/07/21 Unknown Ur Leukocyte Esterase Lg (Negative) 03/07/21 Unknown Urine WBC (Auto) 28.0 /HPF (0.0-6.0) H 03/07/21 Unknown Urine RBC (Auto) 5.0 /HPF (0.0-6.0) 03/07/21 Unknown U Epithel Cells (Auto) 30.0 /HPF (0-13.0) H 03/07/21 Unknown Calcium Oxalate Crystal 2+ 03/07/21 Unknown Urine Creatinine 103.6 mg/dL (0.1-20.0) H 03/07/21 Unknown Protein/Creatinin Ratio 3.65 03/07/21 Unknown Urine Total Protein 378 mg/dL (5-11.8) H 03/07/21 Unknown Nasal Screen MRSA (PCR) Negative (Negative) 03/08/21 06:25 Coronavirus (PCR) Negative (Negative) 03/08/21 Unknown Hepatitis A IgM Ab Non-reactive (NonReactive) 03/07/21 10:35 Hep Bs Antigen Non-reactive (Negative) 03/07/21 10:35 Hep B Core IgM Ab Non-reactive (NonReactive) 03/07/21 10:35 Hepatitis C Antibody Non-reactive (NonReactive) 03/07/21 10:35 Blood Type A POSITIVE 03/08/21 10:52 Antibody Screen Positive 03/08/21 10:52 Antibody Identification Anti-Jkb 03/08/21 10:52 Crossmatch See Detail 03/08/21 10:52 Microbiology: Microbiology 03/07/21 Unknown Urine,Clean Catch Urine Culture - Final Motta/IV: Voiding Method External Female Catheter Active Medications - Current Medications Current Medications: Generic Name Dose Route Start Last Admin Trade Name Freq PRN Reason Stop Dose Admin Acetaminophen 650 mg 03/07/21 00:25 Acetaminophen 325 Mg Tab PO Q4H PRN Pain MILD(1-3)/Fever >100.5/GONZALEZ Amlodipine Besylate 10 mg 03/07/21 16:00 03/09/21 09:44 Amlodipine 10 Mg Tab PO 10 mg QDAY IRVIN Administration Atorvastatin Calcium 40 mg 03/07/21 22:00 03/08/21 21:30 Atorvastatin 40 Mg Tab PO 40 mg QHS IRVIN Administration Carvedilol 25 mg 03/07/21 22:00 03/09/21 09:44 Carvedilol 25 Mg Tab PO 25 mg BID IRVIN Administration Dextrose 50 ml 03/07/21 00:25 Dextrose 50% In Water (25gm) 50 Ml Syringe IV Q30MIN PRN Hypoglycemia Protocol Furosemide 40 mg 03/07/21 06:00 03/09/21 06:30 Furosemide 40 Mg/4 Ml Inj IV 40 mg BID@0600,1800 IRVIN Administration Hydralazine HCl 75 mg 03/07/21 22:00 03/09/21 06:29 Hydralazine 25 Mg Tab PO 75 mg Q8HR IRVIN Administration Sodium Chloride 100 mls @ 999 mls/hr 03/07/21 10:00 Nacl 0.9% IV YESENIA PRN Hypotension Heparin Sodium/Sodium Chloride 25,000 unit in 500 mls @ 30 mls/hr 03/07/21 15:00 03/08/21 16:04 Heparin/ 0.45% Nacl-25,000 Unit/500 Ml IV 1,350 units/hr TITR IRVIN 27 mls/hr Titration Protocol 1,500 UNITS/HR Insulin Human Lispro 0 unit 03/07/21 07:30 03/09/21 09:34 Insulin Lispro 100 Unit/Ml SUB-Q Not Given ACHS [facility] Protocol Isosorbide Mononitrate 30 mg 03/08/21 10:00 03/09/21 09:43 Isosorbide Mononitrate Er 30 Mg Tab PO 30 mg QDAY [facility] Administration Magnesium Hydroxide 30 ml 03/07/21 00:25 Magnesium Hydroxide (Mom) Oral Liqd Udc PO Q4H PRN Constipation Morphine Sulfate 2 mg 03/07/21 00:25 Morphine 2 Mg/1 Ml Inj IV Q4H PRN Pain, Moderate (4-6) Morphine Sulfate 4 mg 03/07/21 00:25 03/08/21 20:51 Morphine 4 Mg/1 Ml Inj IV 4 mg Q4H PRN Administration Pain , Severe (7-10) Ondansetron HCl 4 mg 03/07/21 00:25 Ondansetron 4 Mg/2 Ml Inj IV Q8H PRN Nausea And Vomiting Sodium Chloride 10 ml 03/07/21 10:00 03/09/21 09:45 Sodium Chloride 0.9% 10 Ml Flush Syringe IV 10 ml BID IRVIN Administration Sodium Chloride 10 ml 03/07/21 00:25 Sodium Chloride 0.9% 10 Ml Flush Syringe IV PRN PRN LINE FLUSH
[2021-03-09] MEDS ORDERED: LIDOCAINE (2%) 20 MG/1 ML VIAL 20 ML MDV INFILTRATI ONE ×2 (15:08→15:49)
[2021-03-09] MEDS ORDERED: HEPARIN/NS 5000 UNIT/500ML 1,000 ML IR ONE (15:08)
[2021-03-09] MEDS ORDERED: SODIUM CHLORIDE 0.9% 250ML 250 ML ONE (15:11)
[2021-03-09] MEDS ORDERED: fentaNYL 100 MCG/2 ML INJ ONE (15:37)
[2021-03-09] MEDS ORDERED: MIDAZOLAM 2 MG/2 ML INJ ONE (15:37)
[2021-03-09] MEDS ORDERED: HEPARIN 10,000 UNITS/10 ML VIAL ONE (15:42)
[2021-03-09] MEDS ORDERED: HEPARIN/NS 5000 UNITS/500 ML BAG (CATH LAB ONLY) IR ONE ×2 (15:47)
[2021-03-09] MEDS ORDERED: MIDAZOLAM 2 MG/2 ML INJ IV ONE (15:48)
[2021-03-09] MEDS ORDERED: fentaNYL 100 MCG/2 ML INJ IV ONE (15:48)
[2021-03-09] MEDS ORDERED: HEPARIN 10,000 UNITS/10 ML VIAL IV ONE ×3 (16:00→17:00)
--- NOTE | 2021-03-09 16:19 | Operative Report ---
Operative Report Operative Report: Date of procedure: 03/09/2021 Pre-operative diagnosis: Acute on Chronic Renal Failure Post-operative diagnosis: Same Procedure(s): 1. Ultrasound-Guided Access Right Internal Vein 2. Placement of 23 cm GlidePath Permacath 3. Radiologic Supervision with Interpretation 4. Monitored Moderate Sedation (Total Anesthesia Time: 12 Minutes) Surgeon: Nico Gandhi MD Poultry Scientist: None Anesthesia: Local/Monitored Moderate Sedation Total Anesthesia Time: 12 Minutes EBL: Minimal Counts: Correct Complications: None Condition: Stable Findings: Successful placement of right IJ permacath with the distal tip in the right atrium and no evidence of pneumothorax at the completion of the case. Specimen: None Indication: The patient is a 50-year-old female with a history of chronic renal sufficiency who presented with acute on chronic renal failure. She had a Vas-Cath placed for urgent hemodialysis and now requires a permacath prior to discharge. She has been given the risk, benefits, and alternative procedures and consented to the procedure. Description of Procedure: The patient was brought to the laboratory mechanical technician and laid in supine position and the right neck and chest were prepped and draped in normal sterile fashion. Ultrasound was used to identify the right internal jugular vein and the overlying skin and soft tissue was anesthetized with lidocaine. An 11 blade was used to make a small stab incision and a 21-gauge micropuncture needle was used with ultrasound guidance to enter the right internal jugular vein. A 0.018 micropuncture wire was advanced into the inferior vena cava under fluoroscopy and after removing the needle the micropuncture sheath was advanced into the internal jugular vein by Seldinger technique. The wire and inner cannula were removed and a 0.035 J-wire was advanced into the inferior vena cava under direct fluoroscopic visualization. The tract was serially dilated up to a 16 [place] peel-away safety sheath. An exit site on the chest was then chosen and the presumed tunnel was anesthetized with lidocaine. A small stab incision was made on the chest and then the permacath was connected to the tunneler and pulled antegrade through the tunnel. The J-wire and inner cannula were remove from the SafeSheath and the catheter was inserted into the safe sheath. The safe sheath was then peeled away while advancing the catheter. The catheter was positioned under fluoroscopy with the distal tip in the right atrium. Once in adequate position, both ports were aspirated, flushed, and primed with the appropriate amount of heparin. The neck incision was then closed with 4-0 Monocryl in interrupted subcuticular fashion and dressed with Dermabond. The permacath was secured in place with a 2-0 Ethilon in interrupted fashion and dressed with a sterile dressing. Final fluoroscopy demonstrated the catheter was in adequate position with the distal tip in the right atrium and no evidence of pneumothorax. The patient tolerated the procedure well. All sponge, needle, and instrument counts were correct. The patient was taken to recovery in stable condition.
[2021-03-09] MEDS: MORPHINE 4 MG/1 ML INJ IV PRN (20:12)
[2021-03-09] MEDS: HEPARIN/ 0.45% NACL DRIP 25,000 UNIT/500 ML BAG IV SCH (20:19)
[2021-03-10] MEDS: FUROSEMIDE 40 MG/4 ML INJ IV SCH ×2 (05:12→17:12)
[2021-03-10] MEDS: hydrALAZINE 25 MG TAB PO SCH ×3 (05:12→21:10)
[2021-03-10] MEDS: MORPHINE 4 MG/1 ML INJ IV PRN (05:30)
[2021-03-10 07:58] LABS: Hematocrit 23.9 % (30.3-42.9); Hemoglobin 7.4 gm/dl (10.1-14.3); Mean Corpuscular HGB Conc 31 % (30-34); Mean Corpuscular Volume 96 fl (79-97); Platelet Count 133 K/mm3 (140-440); Red Cell Distribution Width 25.5 % (13.2-15.2)
[2021-03-10] MEDS: INSULIN LISPRO 100 UNIT/ML SUB-Q SCH ×3 (08:15→17:02)
--- NOTE | 2021-03-10 08:19 | Progress Note ---
Assessment and Plan Assessment and plan: #End-stage renal disease requiring dialysis -access:RIJ permacath -HD later today -Nephrology following, assistance appreciated -Outpatient dialysis to be set up by CM #Normocytic anemia -Hgb 7.4 -s/p 1 unit pRBC; delayed due to finding compatible match -Epo with HD #Thrombocytopenia -Plt 133 -will continue to monitor #Heart failure reduced ejection fraction -Echocardiogram 07/2020: LVEF 35 to 40% with grade 2 diastolic dysfunction -continue GDMT and lasix 40 IV BID -Cardiology following, assistance appreciated #Acute hypoxic respiratory failure -improving -will wean O2 as tolerated -likely 2/2 to volume overload 2/2 ESRD #Metabolic acidosis -resolved post dialysis -likely 2/2 to ESRD #NSTEMI -troponin 0.586 -EKG w/o ST changes -likely type II 2/2 reduced renal function #Hypertension -BP controlled -continue amlodipine, coreg, hydralazine, imdur #Type 2 diabetes -controlled without pharmacotherapy #Paroxysmal atrial fibrillation -currently on heparin drip, will discontinue -resume apixaban tonight Disposition Plan: Home pending outpatient dialysis set up Total Time Spent with Patient (Minutes): 20 minutes History Interval history: No acute events overnight. Patient eager to be discharge. No complaints at this time. Hospitalist Physical - Physical exam Narrative exam: GENERAL: Obese. Lying in bed, no distress HEENT: Nasal cannula at 2 L/min CHEST/LUNGS: Fine basilar crackles improving HEART/CARDIOVASCULAR: RRR. No murmur, rubs or gallops appreciated. ABDOMEN: +BS. NT/ND. NEURO: No focal motor deficit. EXTREMITIES: No cyanosis, clubbing or edema. PSYCH: Cooperative. - Constitutional Vitals: Temp Pulse Resp BP Pulse Ox 98.0 F 73 19 149/60 98 03/10/21 07:21 03/10/21 06:00 03/10/21 06:00 03/10/21 06:00 03/10/21 06:00 General appearance: Present: no acute distress HEART Score - HEART Score Troponin: Troponin T 0.586 ng/mL (0.00-0.029) H* D 03/08/21 18:21 Results - Labs CBC & Chem 7: 03/10/21 07:35 03/10/21 07:35 Labs: Laboratory Last Values WBC 8.0 K/mm3 (4.5-11.0) 03/10/21 07:35 RBC 2.50 M/mm3 (3.65-5.03) L 03/10/21 07:35 Hgb 7.4 gm/dl (10.1-14.3) L 03/10/21 07:35 Hct 23.9 % (30.3-42.9) L 03/10/21 07:35 MCV 96 fl (79-97) 03/10/21 07:35 MCH 30 pg (28-32) 03/10/21 07:35 MCHC 31 % (30-34) 03/10/21 07:35 RDW 25.5 % (13.2-15.2) H 03/10/21 07:35 Plt Count 133 K/mm3 (140-440) L 03/10/21 07:35 Add Manual Diff Complete 03/06/21 22:22 Total Counted 100 03/06/21 22:22 Seg Neuts % (Manual) 87.0 % (40.0-70.0) H 03/06/21 22:22 Lymphocytes % (Manual) 9.0 % (13.4-35.0) L 03/06/21 22:22 Monocytes % (Manual) 3.0 % (0.0-7.3) 03/06/21 22:22 Basophils % (Manual) 1.0 % (0.0-1.8) 03/06/21 22:22 Nucleated RBC % 3.0 % (0.0-0.9) H 03/06/21 22:22 Seg Neutrophils # Man 13.6 K/mm3 (1.8-7.7) H 03/06/21 22:22 Band Neutrophils # 0.0 K/mm3 03/06/21 22:22 Lymphocytes # (Manual) 1.4 K/mm3 (1.2-5.4) 03/06/21 22:22 Abs React Lymphs (Man) 0.0 K/mm3 03/06/21 22:22 Monocytes # (Manual) 0.5 K/mm3 (0.0-0.8) 03/06/21 22:22 Eosinophils # (Manual) 0.0 K/mm3 (0.0-0.4) 03/06/21 22:22 Basophils # (Manual) 0.2 K/mm3 (0.0-0.1) H 03/06/21 22:22 Metamyelocytes # 0.0 K/mm3 03/06/21 22:22 Myelocytes # 0.0 K/mm3 03/06/21 22:22 Promyelocytes # 0.0 K/mm3 03/06/21 22:22 Blast Cells # 0.0 K/mm3 03/06/21 22:22 WBC Morphology Not Reportable 03/06/21 22:22 Hypersegmented Neuts Not Reportable 03/06/21 22:22 Hyposegmented Neuts Not Reportable 03/06/21 22:22 Hypogranular Neuts Not Reportable 03/06/21 22:22 Smudge Cells Not Reportable 03/06/21 22:22 Toxic Granulation Not Reportable 03/06/21 22:22 Toxic Vacuolation Not Reportable 03/06/21 22:22 Dohle Bodies Not Reportable 03/06/21 22:22 Pelger-Huet Anomaly Not Reportable 03/06/21 22:22 Cliff Rods Not Reportable 03/06/21 22:22 Platelet Estimate Consistent w auto 03/06/21 22:22 Clumped Platelets Not Reportable 03/06/21 22:22 Plt Clumps, EDTA Not Reportable 03/06/21 22:22 Large Platelets Not Reportable 03/06/21 22:22 Giant Platelets Not Reportable 03/06/21 22:22 Platelet Satelliting Not Reportable 03/06/21 22:22 Plt Morphology Comment Not Reportable 03/06/21 22:22 RBC Morphology Not Reportable 03/06/21 22:22 Dimorphic RBCs Not Reportable 03/06/21 22:22 Polychromasia Not Reportable 03/06/21 22:22 Hypochromasia Not Reportable 03/06/21 22:22 Poikilocytosis Not Reportable 03/06/21 22:22 Anisocytosis 2+ 03/06/21 22:22 Microcytosis Not Reportable 03/06/21 22:22 Macrocytosis Not Reportable 03/06/21 22:22 Spherocytes Not Reportable 03/06/21 22:22 Pappenheimer Bodies Not Reportable 03/06/21 22:22 Sickle Cells Not Reportable 03/06/21 22:22 Target Cells Not Reportable 03/06/21 22:22 Tear Drop Cells Not Reportable 03/06/21 22:22 Ovalocytes Not Reportable 03/06/21 22:22 Helmet Cells Not Reportable 03/06/21 22:22 Sosa-[place] Bodies Not Reportable 03/06/21 22:22 [place] Rings Not Reportable 03/06/21 22:22 Gee Cells Not Reportable 03/06/21 22:22 Bite Cells Not Reportable 03/06/21 22:22 Crenated Cell Not Reportable 03/06/21 22:22 Elliptocytes Not Reportable 03/06/21 22:22 Acanthocytes (Spur) Not Reportable 03/06/21 22:22 Rouleaux Not Reportable 03/06/21 22:22 Hemoglobin C Crystals Not Reportable 03/06/21 22:22 Schistocytes Not Reportable 03/06/21 22:22 Malaria parasites Not Reportable 03/06/21 22:22 Tyson Bodies Not Reportable 03/06/21 22:22 Hem Pathologist Commnt No 03/06/21 22:22 PT 16.3 Sec. (12.2-14.9) H 03/07/21 15:26 INR 1.18 (0.87-1.13) H 03/07/21 15:26 APTT 35.1 Sec. (24.2-36.6) 03/07/21 15:26 Heparin Anti-Xa Level 0.38 U.I./ml (0.3-0.7) 03/10/21 07:35 ABG pH 7.239 pH Units (7.350-7.450) L 03/07/21 03:01 ABG pCO2 32.6 mm Hg 03/07/21 03:01 ABG pO2 117.9 mm Hg (80.0-90.0) H 03/07/21 03:01 ABG HCO3 13.6 mmol/L (20.0-26.0) L 03/07/21 03:01 ABG O2 Saturation 97.9 % (95.0-99.0) 03/07/21 03:01 ABG O2 Content 9.5 (0.0-44) 03/07/21 03:01 ABG Base Excess -12.7 mmol/L (-2.0-3.0) L 03/07/21 03:01 ABG Hemoglobin 6.9 gm/dl (12.0-16.0) L 03/07/21 03:01 ABG Carboxyhemoglobin 1.8 % (0.0-5.0) 03/07/21 03:01 ABG Methemoglobin 0.4 % (0.0-1.5) 03/07/21 03:01 Oxyhemoglobin 95.8 % (95.0-99.0) 03/07/21 03:01 FiO2 70 % 03/07/21 03:01 Sodium 137 mmol/L (137-145) 03/09/21 04:46 Potassium 3.9 mmol/L (3.6-5.0) 03/09/21 04:46 Chloride 99.5 mmol/L (98-107) 03/09/21 04:46 Carbon Dioxide 26 mmol/L (22-30) 03/09/21 04:46 Anion Gap 15 mmol/L 03/09/21 04:46 BUN 18 mg/dL (7-17) H 03/09/21 04:46 Creatinine 2.8 mg/dL (0.6-1.2) H 03/09/21 04:46 Estimated GFR 22 ml/min 03/09/21 04:46 BUN/Creatinine Ratio 6 % 03/09/21 04:46 Glucose 108 mg/dL (65-100) H 03/09/21 04:46 POC Glucose 92 mg/dL (70-105) 03/10/21 08:09 Lactic Acid 1.00 mmol/L (0.7-2.0) 03/07/21 00:11 Calcium 7.6 mg/dL (8.4-10.2) L 03/09/21 04:46 Total Bilirubin 1.10 mg/dL (0.1-1.2) 03/06/21 22:22 AST 11 units/L (5-40) 03/06/21 22:22 ALT 9 units/L (7-56) 03/06/21 22:22 Alkaline Phosphatase 282 units/L (35-129) H 03/06/21 22:22 Total Creatine Kinase 112 units/L (30-135) 03/07/21 10:35 Troponin T 0.586 ng/mL (0.00-0.029) H* D 03/08/21 18:21 NT-Pro-B Natriuret Pep 34708 pg/mL (0-450) H 03/06/21 22:22 Total Protein 8.7 g/dL (6.3-8.2) H 03/06/21 22:22 Albumin 4.1 g/dL (3.9-5) 03/06/21 22:22 Albumin/Globulin Ratio 0.9 % 03/06/21 22:22 Triglycerides 161 mg/dL (2-149) H 03/06/21 22:22 Cholesterol 180 mg/dL (50-199) 03/06/21 22: LDL Cholesterol Direct 96 mg/dL (50-130) 03/06/21 22: HDL Cholesterol 50 mg/dL (40-59) 03/06/21 22: Cholesterol/HDL Ratio 3.60 % 03/06/21 22: Urine Color Yellow (Yellow) 03/07/21 Unknown Urine Turbidity Slightly cloudy (Clear) 03/07/21 Unknown Urine pH 8.0 (5.0-7.0) H 03/07/21 Unknown Ur Specific [place] 1.014 (1.003-1.030) 03/07/21 Unknown Urine Protein >500 mg/dL (Negative) 03/07/21 Unknown Urine Glucose (UA) Neg mg/dL (Negative) 03/07/21 Unknown Urine Ketones Neg mg/dL (Negative) 03/07/21 Unknown Urine Blood Sm (Negative) 03/07/21 Unknown Urine Nitrite Neg (Negative) 03/07/21 Unknown Urine Bilirubin Neg (Negative) 03/07/21 Unknown Urine Urobilinogen < 2.0 mg/dL (<2.0) 03/07/21 Unknown Ur Leukocyte Esterase Lg (Negative) 03/07/21 Unknown Urine WBC (Auto) 28.0 /HPF (0.0-6.0) H 03/07/21 Unknown Urine RBC (Auto) 5.0 /HPF (0.0-6.0) 03/07/21 Unknown U Epithel Cells (Auto) 30.0 /HPF (0-13.0) H 03/07/21 Unknown Calcium Oxalate Crystal 2+ 03/07/21 Unknown Urine Creatinine 103.6 mg/dL (0.1-20.0) H 03/07/21 Unknown Protein/Creatinin Ratio 3.65 03/07/21 Unknown Urine Total Protein 378 mg/dL (5-11.8) H 03/07/21 Unknown Nasal Screen MRSA (PCR) Negative (Negative) 03/08/21 06:25 Coronavirus (PCR) Negative (Negative) 03/08/21 Unknown Hepatitis A IgM Ab Non-reactive (NonReactive) 03/07/21 10:35 Hep Bs Antigen Non-reactive (Negative) 03/07/21 10:35 Hep B Core IgM Ab Non-reactive (NonReactive) 03/07/21 10:35 Hepatitis C Antibody Non-reactive (NonReactive) 03/07/21 10:35 Blood Type A POSITIVE 03/08/21 10:52 Antibody Screen Positive 03/08/21 10:52 Antibody Identification Anti-Jkb 03/08/21 10:52 Crossmatch See Detail 03/08/21 10:52 Microbiology: Microbiology 03/07/21 Unknown Urine,Clean Catch Urine Culture - Final Motta/IV: Voiding Method External Female Catheter Active Medications - Current Medications Current Medications: Generic Name Dose Route Start Last Admin Trade Name Freq PRN Reason Stop Dose Admin Acetaminophen 650 mg 03/07/21 00:25 Acetaminophen 325 Mg Tab PO Q4H PRN Pain MILD(1-3)/Fever >100.5/GONZALEZ Amlodipine Besylate 10 mg 03/07/21 16:00 03/09/21 09:44 Amlodipine 10 Mg Tab PO 10 mg QDAY IRVIN Administration Atorvastatin Calcium 40 mg 03/07/21 22:00 03/09/21 21:23 Atorvastatin 40 Mg Tab PO Not Given QHS IRVIN Carvedilol 25 mg 03/07/21 22:00 03/09/21 21:20 Carvedilol 25 Mg Tab PO 25 mg BID IRVIN Administration Dextrose 50 ml 03/07/21 00:25 Dextrose 50% In Water (25gm) 50 Ml Syringe IV Q30MIN PRN Hypoglycemia Protocol Furosemide 40 mg 03/07/21 06:00 03/10/21 05:12 Furosemide 40 Mg/4 Ml Inj IV 40 mg BID@0600,1800 IRVIN Administration Hydralazine HCl 75 mg 03/07/21 22:00 03/10/21 05:12 Hydralazine 25 Mg Tab PO 75 mg Q8HR IRVIN Administration Sodium Chloride 100 mls @ 999 mls/hr 03/07/21 10:00 Nacl 0.9% IV YESENIA PRN Hypotension Heparin Sodium/Sodium Chloride 25,000 unit in 500 mls @ 30 mls/hr 03/07/21 15:00 03/10/21 00:18 Heparin/ 0.45% Nacl-25,000 Unit/500 Ml IV 1,550 units/hr TITR IRVIN 31 mls/hr Titration Protocol 1,500 UNITS/HR Insulin Human Lispro 0 unit 03/07/21 07:30 03/09/21 21:24 Insulin Lispro 100 Unit/Ml SUB-Q Not Given ACHS [facility] Protocol Isosorbide Mononitrate 30 mg 03/08/21 10:00 03/09/21 09:43 Isosorbide Mononitrate Er 30 Mg Tab PO 30 mg QDAY [facility] Administration Magnesium Hydroxide 30 ml 03/07/21 00:25 Magnesium Hydroxide (Mom) Oral Liqd Udc PO Q4H PRN Constipation Morphine Sulfate 2 mg 03/07/21 00:25 Morphine 2 Mg/1 Ml Inj IV Q4H PRN Pain, Moderate (4-6) Morphine Sulfate 4 mg 03/07/21 00:25 03/10/21 05:30 Morphine 4 Mg/1 Ml Inj IV 4 mg Q4H PRN Administration Pain , Severe (7-10) Ondansetron HCl 4 mg 03/07/21 00:25 Ondansetron 4 Mg/2 Ml Inj IV Q8H PRN Nausea And Vomiting Sodium Chloride 10 ml 03/07/21 10:00 03/09/21 21:24 Sodium Chloride 0.9% 10 Ml Flush Syringe IV 10 ml BID IRVIN Administration Sodium Chloride 10 ml 03/07/21 00:25 Sodium Chloride 0.9% 10 Ml Flush Syringe IV PRN PRN LINE FLUSH
[2021-03-10 08:43] LABS: Calcium 8.5 mg/dL (8.4-10.2)
[2021-03-10] MEDS ORDERED: EPOETIN ALFA-EPBX 2,000 UNIT/1 ML INJ IV PRN (09:00)
[2021-03-10] MEDS: carvediloL 25 MG TAB PO SCH ×2 (10:02→21:10)
[2021-03-10] MEDS: amLODIPine 10 MG TAB PO SCH (10:03)
[2021-03-10] MEDS ORDERED: oxyCODONE /ACETAMINOPHEN 5-325MG TAB PO PRN (10:57)
[2021-03-10] MEDS ORDERED: diphenhydrAMINE 25 MG CAP PO PRN (10:57)
--- NOTE | 2021-03-10 11:18 | Progress Note ---
Assessment and Plan Patient 50-year-old female with a past medical history of HFrEF, paroxysmal A. fib, hypertension, end-stage renal disease not on dialysis, history of CVA, and diabetes who was brought to the ED for shortness of breath/respiratory distress x1 day Echo 08/09/2020- LVEF 35 - 40%. LV systolic function is moderately decreased Grade II (moderate) diastolic dysfunction RV moderately dilated. RV systolic function is mildly reduced. Over all no significant change noted. LVEF appears mildly reduced Lexiscan stress test01/18/2021-Normal rest/stress SPECT myocardial perfusion images. There is no evidence of significant infarction or ischemia. There are no wall motion abnormalities. Left ventricular function is normal. The ejection fraction is 50-70%. Stress/ECG changes are normal. This study suggests a low risk for cardiovascular event and is associated with a cardiac mortality of less than 1% per year. There is no prior study for comparison In discussion with patient's hospitalist we will stop heparin and start Eliquis continue current medications may be transferred to telemetry. DC right groin Vas-Cath - Patient Problems (1) Acute on chronic anemia Current Visit: Yes Status: Acute (2) Acute on chronic renal failure Current Visit: Yes Status: Acute Qualifiers: Acute renal failure type: unspecified Chronic kidney disease stage: stage 5, not on chronic dialysis Qualified Code(s): N17.9 - Acute kidney failure, unspecified; N18.5 - Chronic kidney disease, stage 5 (3) Acute respiratory failure with hypoxia Current Visit: Yes Status: Acute (4) ESRD needing dialysis Current Visit: Yes Status: Acute (5) NSTEMI (non-ST elevated myocardial infarction) Current Visit: Yes Status: Acute (6) Diabetes mellitus Current Visit: Yes Status: Chronic Qualifiers: Diabetes mellitus type: type 2 (7) HLD (hyperlipidemia) Current Visit: Yes Status: Chronic Qualifiers: Hyperlipidemia type: mixed hyperlipidemia Qualified Code(s): E78.2 - Mixed hyperlipidemia (8) HTN (hypertension) Current Visit: Yes Status: Chronic Qualifiers: Hypertension type: renovascular hypertension Qualified Code(s): I15.0 - Renovascular hypertension (9) History of CVA (cerebrovascular accident) Current Visit: Yes Status: Chronic (10) Paroxysmal atrial fibrillation Current Visit: Yes Status: Chronic Subjective Date of service: 03/10/21 Principal diagnosis: ESRD Interval history: no chest pain Objective Vital Signs Temp Pulse Pulse Resp BP Pulse Ox 03/10/21 10:03 75 144/38 03/10/21 10:02 75 144/38 03/10/21 08:24 74 18 147/60 100 03/10/21 07:21 98.0 F 03/10/21 06:00 73 19 149/60 98 03/10/21 05:00 72 17 149/53 97 03/10/21 04:00 99.3 F 73 73 18 156/48 100 03/10/21 03:00 73 17 149/49 98 03/10/21 02:00 73 17 146/61 99 03/10/21 01:00 73 18 139/46 96 03/10/21 00:02 75 19 139/46 97 03/10/21 00:00 99.3 F 75 82 20 139/46 96 03/09/21 23:30 99 H 20 140/41 100 03/09/21 23:00 74 14 140/41 99 03/09/21 22:30 75 19 149/66 99 03/09/21 22:00 76 19 149/66 97 03/09/21 21:30 77 18 147/48 100 03/09/21 21:00 75 19 147/48 95 03/09/21 20:56 96 03/09/21 20:30 77 22 149/46 98 03/09/21 20:00 99.6 F 76 76 14 149/46 98 03/09/21 19:30 76 20 143/53 98 03/09/21 19:00 79 22 143/53 92 03/09/21 18:30 78 22 134/45 84 03/09/21 18:00 80 22 134/45 87 03/09/21 17:30 80 27 H 143/61 89 03/09/21 17:01 77 13 143/61 90 03/09/21 16:31 74 13 143/61 94 03/09/21 16:26 73 143/61 91 03/09/21 16:00 98.8 F 79 12 98 03/09/21 13:31 73 17 122/75 97 03/09/21 13:00 76 21 122/75 93 03/09/21 12:31 73 17 137/75 96 03/09/21 12:00 99.4 F 72 79 12 137/75 98 03/09/21 11:31 73 13 127/78 90 - Physical Examination General: No Apparent Distress HEENT: Positive: EOMI, Normocephaly Neck: Positive: neck supple, trachea midline Cardiac: Positive: Reg Rate and Rhythm Lungs: Positive: clear to auscultation Neuro: Positive: Grossly Intact Abdomen: Positive: Soft. Negative: Tender Skin: Negative: Rash Extremities: Present: lower extr. pulses. Absent: edema - Labs and Meds CBC 03/10/21 Range/Units 07:35 WBC 8.0 (4.5-11.0) K/mm3 RBC 2.50 L (3.65-5.03) M/mm3 Hgb 7.4 L (10.1-14.3) gm/dl Hct 23.9 L (30.3-42.9) % Plt Count 133 L (140-440) K/mm3 Comprehensive Metabolic Panel 03/10/21 Range/Units 07:35 Sodium 136 L (137-145) mmol/L Potassium 4.1 (3.6-5.0) mmol/L Chloride 97.5 L (98-107) mmol/L Carbon Dioxide 22 (22-30) mmol/L BUN 26 H (7-17) mg/dL Creatinine 4.0 H (0.6-1.2) mg/dL Glucose 107 H (65-100) mg/dL Calcium 8.5 (8.4-10.2) mg/dL - Imaging and Cardiology EKG: report reviewed, image reviewed Nuclear stress test: report reviewed (12/2020 no signficant ischemia noted) Echo: report reviewed (07/2020 - EF 35-40%, grade II diastolic dysfunction, mod dilated RV, mildly reduced RVSF) - Telemetry EKG Rhythm: Sinus Rhythm - EKG Sinus rhythms and dysrhythmias: sinus rhythm Ventricular dysrhythmias: ventricular premature com Repolarization changes or abnormalities: nonspecific abnormality, ST segment, and/or T wave
--- NOTE | 2021-03-10 18:07 | Progress Note ---
Assessment and Plan Assessment - End-stage renal disease - Fluid overload - Hypertension - Anemia of ESRD - Hyperparathyroidism - Hyperphosphatemia Recommendations - Repeated dialysis today, transition to MWF - S/p permcath placement, vasc cath can be removed - Continue home antihypertensives - Hold antihypertensives on hemodialysis days for systolics less than 160 - Epogen with HD - ESRD diet with 1.4 g/kg per day protein - Renally dose medication for creatinine clearance less than 15 cc/min - Case management consult to assist with HD placement Subjective Date of service: 03/10/21 Principal diagnosis: ESRD Interval history: Patient was seen for her renal issues Nursing, interdisciplinary and consult notes were reviewed Vitals, input and output, medications and labs were reviewed Seen during dialysis, s/p permcath Objective - Exam Narrative Exam: General: No acute distress HEENT: Oral mucosa moist Neck: Supple, no JVD Chest: Decreased bibasilar breath sounds Heart: RRR, S1 and S2, no pericardial rub Abdomen: Soft, nontender, no renal bruit Extremity: No peripheral cyanosis, edema Neurological: Alert, awake, no asterixis Dermatology: No skin rash Psych: No agitation Musculoskeletal: No joint effusion - Vital Signs Vital signs: Vital Signs - 12hr 03/10/21 03/10/21 03/10/21 07:00 07:21 08:00 Temperature 98.0 F Pulse Rate 71 70 Pulse Rate [ 73 From Monitor] Pulse Rate [ 73 Left Dorsalis Pedis] Pulse Rate [ 73 Left Radial] Pulse Rate [ 73 Right Dorsalis Pedis] Pulse Rate [ 73 Right Radial] Respiratory 17 15 Rate Blood Pressure 126/42 147/60 O2 Sat by Pulse 97 98 Oximetry O2 Sat by Pulse Oximetry [ Anterior Bilateral Throughout] 03/10/21 03/10/21 03/10/21 08:24 09:00 10:00 Temperature Pulse Rate 74 77 73 Pulse Rate [ From Monitor] Pulse Rate [ Left Dorsalis Pedis] Pulse Rate [ Left Radial] Pulse Rate [ Right Dorsalis Pedis] Pulse Rate [ Right Radial] Respiratory 18 19 17 Rate Blood Pressure 147/60 147/60 144/38 O2 Sat by Pulse 100 100 100 Oximetry O2 Sat by Pulse Oximetry [ Anterior Bilateral Throughout] 03/10/21 03/10/21 03/10/21 10:02 10:03 11:30 Temperature 98.0 F Pulse Rate 75 75 72 Pulse Rate [ From Monitor] Pulse Rate [ Left Dorsalis Pedis] Pulse Rate [ Left Radial] Pulse Rate [ Right Dorsalis Pedis] Pulse Rate [ Right Radial] Respiratory 18 Rate Blood Pressure 144/38 144/38 152/75 O2 Sat by Pulse Oximetry O2 Sat by Pulse 100 Oximetry [ Anterior Bilateral Throughout] 03/10/21 03/10/21 03/10/21 11:45 12:00 12:15 Temperature Pulse Rate 75 76 75 Pulse Rate [ From Monitor] Pulse Rate [ Left Dorsalis Pedis] Pulse Rate [ Left Radial] Pulse Rate [ Right Dorsalis Pedis] Pulse Rate [ Right Radial] Respiratory Rate Blood Pressure 156/75 135/52 134/57 O2 Sat by Pulse Oximetry O2 Sat by Pulse Oximetry [ Anterior Bilateral Throughout] 03/10/21 03/10/21 03/10/21 12:30 12:45 13:00 Temperature Pulse Rate 73 72 73 Pulse Rate [ From Monitor] Pulse Rate [ Left Dorsalis Pedis] Pulse Rate [ Left Radial] Pulse Rate [ Right Dorsalis Pedis] Pulse Rate [ Right Radial] Respiratory Rate Blood Pressure 114/56 129/57 126/61 O2 Sat by Pulse Oximetry O2 Sat by Pulse Oximetry [ Anterior Bilateral Throughout] 03/10/21 03/10/21 03/10/21 13:15 13:30 13:45 Temperature Pulse Rate 71 72 76 Pulse Rate [ From Monitor] Pulse Rate [ Left Dorsalis Pedis] Pulse Rate [ Left Radial] Pulse Rate [ Right Dorsalis Pedis] Pulse Rate [ Right Radial] Respiratory Rate Blood Pressure 137/67 167/71 132/61 O2 Sat by Pulse Oximetry O2 Sat by Pulse Oximetry [ Anterior Bilateral Throughout] 03/10/21 03/10/21 03/10/21 14:00 14:15 14:30 Temperature Pulse Rate 77 73 73 Pulse Rate [ From Monitor] Pulse Rate [ Left Dorsalis Pedis] Pulse Rate [ Left Radial] Pulse Rate [ Right Dorsalis Pedis] Pulse Rate [ Right Radial] Respiratory Rate Blood Pressure 146/93 149/59 145/71 O2 Sat by Pulse Oximetry O2 Sat by Pulse Oximetry [ Anterior Bilateral Throughout] 03/10/21 03/10/21 03/10/21 14:45 15:00 15:20 Temperature 98.0 F Pulse Rate 75 74 76 Pulse Rate [ From Monitor] Pulse Rate [ Left Dorsalis Pedis] Pulse Rate [ Left Radial] Pulse Rate [ Right Dorsalis Pedis] Pulse Rate [ Right Radial] Respiratory 18 Rate Blood Pressure 135/52 143/67 144/68 O2 Sat by Pulse Oximetry O2 Sat by Pulse 100 Oximetry [ Anterior Bilateral Throughout] 03/10/21 16:30 Temperature 97.9 F Pulse Rate 77 Pulse Rate [ From Monitor] Pulse Rate [ Left Dorsalis Pedis] Pulse Rate [ Left Radial] Pulse Rate [ Right Dorsalis Pedis] Pulse Rate [ Right Radial] Respiratory 18 Rate Blood Pressure 155/73 O2 Sat by Pulse 85 Oximetry O2 Sat by Pulse Oximetry [ Anterior Bilateral Throughout] - Lab 03/10/21 07:35 03/10/21 07:35 Most recent lab results ABG pH 7.239 pH Units (7.350-7.450) L 03/07/21 03:01 ABG pCO2 32.6 mm Hg 03/07/21 03:01 ABG pO2 117.9 mm Hg (80.0-90.0) H 03/07/21 03:01 ABG HCO3 13.6 mmol/L (20.0-26.0) L 03/07/21 03:01 ABG O2 Saturation 97.9 % (95.0-99.0) 03/07/21 03:01 Calcium 8.5 mg/dL (8.4-10.2) 03/10/21 07:35 Urine Creatinine 103.6 mg/dL (0.1-20.0) H 03/07/21 Unknown Urine Total Protein 378 mg/dL (5-11.8) H 03/07/21 Unknown Medications & Allergies - Medications Allergies/Adverse Reactions: Allergies lisinopril Allergy (Verified 03/08/21 03:21) Unknown meperidine HCl [From Demerol] Allergy (Verified 03/08/21 03:21) Itching penicillin Allergy (Verified 03/08/21 03:21) Unknown Home Medications: Home Medications Medication Instructions Recorded Confirmed Last Taken Type Bumetanide 4 mg PO BID 03/28/20 03/08/21 03/06/21 History Hydralazine HCl 75 mg PO TID 03/28/20 03/08/21 03/06/21 History ISOSORBIDE MONOnitrate [Imdur ER] 30 mg PO DAILY 03/28/20 03/08/21 03/06/21 History Sevelamer Carbonate [Renvela] 800 mg PO TID 03/28/20 03/08/21 03/08/21 History allopurinoL [Zyloprim] 300 mg PO QDAY 03/28/20 03/08/21 03/06/21 History amLODIPine [Norvasc] 10 mg PO DAILY 03/28/20 03/08/21 03/06/21 History carvediloL [Coreg] 25 mg PO BID 03/28/20 03/08/21 03/06/21 History glipiZIDE [Glucotrol] 10 mg PO BID 03/28/20 03/08/21 03/06/21 History calcitrioL [Rocaltrol] 0.5 mcg PO QDAY 03/08/21 03/08/21 03/06/21 History metOLazone [Zaroxolyn] 5 mg PO QDAY 03/08/21 03/08/21 03/06/21 History Active Medications: Generic Name Dose Route Start Last Admin Trade Name Freq PRN Reason Stop Dose Admin Acetaminophen 650 mg 03/07/21 00:25 Acetaminophen 325 Mg Tab PO Q4H PRN Pain MILD(1-3)/Fever >100.5/GONZALEZ Amlodipine Besylate 10 mg 03/07/21 16:00 03/10/21 10:03 Amlodipine 10 Mg Tab PO 10 mg QDAY IRVIN Administration Apixaban 5 mg 03/10/21 22:00 Apixaban 5 Mg Tab PO Q12HR IRVIN Protocol Atorvastatin Calcium 40 mg 03/07/21 22:00 03/09/21 21:23 Atorvastatin 40 Mg Tab PO Not Given QHS IRVIN Carvedilol 25 mg 03/07/21 22:00 03/10/21 10:02 Carvedilol 25 Mg Tab PO 25 mg BID IRVIN Administration Dextrose 50 ml 03/07/21 00:25 Dextrose 50% In Water (25gm) 50 Ml Syringe IV Q30MIN PRN Hypoglycemia Protocol Diphenhydramine HCl 25 mg 03/10/21 10:57 Diphenhydramine 25 Mg Cap PO Q8H PRN Itching Furosemide 40 mg 03/07/21 06:00 03/10/21 17:12 Furosemide 40 Mg/4 Ml Inj IV 40 mg BID@0600,1800 IRVIN Administration Hydralazine HCl 75 mg 03/07/21 22:00 03/10/21 17:02 Hydralazine 25 Mg Tab PO Not Given Q8HR [facility] Sodium Chloride 100 mls @ 999 mls/hr 03/07/21 10:00 Nacl 0.9% IV YESENIA PRN Hypotension Insulin Human Lispro 0 unit 03/07/21 07:30 03/10/21 17:02 Insulin Lispro 100 Unit/Ml SUB-Q Not Given ACHS [facility] Protocol Isosorbide Mononitrate 30 mg 03/08/21 10:00 03/10/21 10:03 Isosorbide Mononitrate Er 30 Mg Tab PO 30 mg QDAY IRVIN Administration Magnesium Hydroxide 30 ml 03/07/21 00:25 Magnesium Hydroxide (Mom) Oral Liqd Udc PO Q4H PRN Constipation Morphine Sulfate 2 mg 03/07/21 00:25 Morphine 2 Mg/1 Ml Inj IV Q4H PRN Pain, Moderate (4-6) Morphine Sulfate 4 mg 03/07/21 00:25 03/10/21 05:30 Morphine 4 Mg/1 Ml Inj IV 4 mg Q4H PRN Administration Pain , Severe (7-10) Ondansetron HCl 4 mg 03/07/21 00:25 Ondansetron 4 Mg/2 Ml Inj IV Q8H PRN Nausea And Vomiting Oxycodone/Acetaminophen 1 tab 03/10/21 10:57 Oxycodone /Acetaminophen 5-325mg Tab PO Q8H PRN Pain, Moderate (4-6) Sodium Chloride 10 ml 03/07/21 10:00 03/10/21 10:07 Sodium Chloride 0.9% 10 Ml Flush Syringe IV Not Given BID IRVIN Sodium Chloride 10 ml 03/07/21 00:25 Sodium Chloride 0.9% 10 Ml Flush Syringe IV PRN PRN LINE FLUSH
[2021-03-10] MEDS: APIXABAN 5 MG TAB PO SCH (21:10)
[2021-03-10 23:08] LABS: Hematocrit 25.1 % (30.3-42.9); Hemoglobin 7.9 gm/dl (10.1-14.3); Mean Corpuscular HGB Conc 32 % (30-34); Mean Corpuscular Volume 95 fl (79-97); Platelet Count 152 K/mm3 (140-440); Red Blood Count 2.64 M/mm3 (3.65-5.03)
[2021-03-10 23:26] LABS: Red Cell Distribution Width 24.6 % (13.2-15.2)
[2021-03-10 23:50] LABS: INR 1.06 (0.87-1.13)
[2021-03-10 23:51] LABS: Partial Thromboplastin Time 39.8 Sec. (24.2-36.6)
[2021-03-11] MEDS: hydrALAZINE 25 MG TAB PO SCH ×3 (06:09→21:23)
[2021-03-11] MEDS: FUROSEMIDE 40 MG/4 ML INJ IV SCH (06:09)
[2021-03-11 06:35] LABS: Hematocrit 22.9 % (30.3-42.9); Hemoglobin 7.4 gm/dl (10.1-14.3)
--- NOTE | 2021-03-11 09:05 | Progress Note ---
Assessment and Plan Assessment and plan: #End-stage renal disease requiring dialysis -access:RIL[facility] permacath -HD yesterday -Nephrology following, assistance appreciated -discharge pending outpatient dialysis to be set up by CM #Normocytic anemia -Hgb 7.4 -s/p 1 unit pRBC; delayed due to finding compatible match -Epo with HD #Thrombocytopenia -Plt 138 -will continue to monitor #Heart failure reduced ejection fraction -Echocardiogram 07/2020: LVEF 35 to 40% with grade 2 diastolic dysfunction -continue GDMT and lasix 40 IV BID -Cardiology following, assistance appreciated #Acute hypoxic respiratory failure -improving -will wean O2 as tolerated -likely 2/2 to volume overload 2/2 ESRD #Metabolic acidosis -resolved post dialysis -likely 2/2 to ESRD #NSTEMI -troponin 0.586 -EKG w/o ST changes -likely type II 2/2 reduced renal function #Hypertension -BP controlled -continue amlodipine, coreg, hydralazine, imdur #Type 2 diabetes -controlled without pharmacotherapy #Paroxysmal atrial fibrillation -s/p heparin drip, will continue apixaban and BB Disposition Plan: Home pending HD chair Total Time Spent with Patient (Minutes): 20 minutes History Interval history: No acute events overnight. Vasc cath was removed and she tolerated HD well yesterday. Patient without any complaints at this time. Hospitalist Physical - Physical exam Narrative exam: GENERAL: Obese. Lying in bed, no distress HEENT: Nasal cannula at 1 L/min CHEST/LUNGS: CTAB. HEART/CARDIOVASCULAR: RRR. No murmur, rubs or gallops appreciated. ABDOMEN: +BS. NT/ND. NEURO: No focal motor deficit. EXTREMITIES: No cyanosis, clubbing or edema. PSYCH: Cooperative. - Constitutional Vitals: Temp Pulse Resp BP Pulse Ox 99.1 F 73 19 130/57 99 03/11/21 03:16 03/11/21 03:16 03/11/21 03:16 03/11/21 03:16 03/11/21 03:16 General appearance: Present: no acute distress HEART Score - HEART Score Troponin: Troponin T 0.546 ng/mL (0.00-0.029) H* 03/11/21 04:45 Results - Labs CBC & Chem 7: 03/11/21 04:45 03/10/21 22:41 Labs: Laboratory Last Values WBC 8.0 K/mm3 (4.5-11.0) 03/10/21 22:41 RBC 2.64 M/mm3 (3.65-5.03) L 03/10/21 22:41 Hgb 7.4 gm/dl (10.1-14.3) L 03/11/21 04:45 Hct 22.9 % (30.3-42.9) L 03/11/21 04:45 MCV 95 fl (79-97) 03/10/21 22:41 MCH 30 pg (28-32) 03/10/21 22:41 MCHC 32 % (30-34) 03/10/21 22:41 RDW 24.6 % (13.2-15.2) H 03/10/21 22:41 Plt Count 138 K/mm3 (140-440) L 03/11/21 04:45 Add Manual Diff Complete 03/06/21 22:22 Total Counted 100 03/06/21 22:22 Seg Neuts % (Manual) 87.0 % (40.0-70.0) H 03/06/21 22:22 Lymphocytes % (Manual) 9.0 % (13.4-35.0) L 03/06/21 22:22 Monocytes % (Manual) 3.0 % (0.0-7.3) 03/06/21 22:22 Basophils % (Manual) 1.0 % (0.0-1.8) 03/06/21 22:22 Nucleated RBC % 3.0 % (0.0-0.9) H 03/06/21 22:22 Seg Neutrophils # Man 13.6 K/mm3 (1.8-7.7) H 03/06/21 22:22 Band Neutrophils # 0.0 K/mm3 03/06/21 22:22 Lymphocytes # (Manual) 1.4 K/mm3 (1.2-5.4) 03/06/21 22:22 Abs React Lymphs (Man) 0.0 K/mm3 03/06/21 22:22 Monocytes # (Manual) 0.5 K/mm3 (0.0-0.8) 03/06/21 22:22 Eosinophils # (Manual) 0.0 K/mm3 (0.0-0.4) 03/06/21 22:22 Basophils # (Manual) 0.2 K/mm3 (0.0-0.1) H 03/06/21 22:22 Metamyelocytes # 0.0 K/mm3 03/06/21 22:22 Myelocytes # 0.0 K/mm3 03/06/21 22:22 Promyelocytes # 0.0 K/mm3 03/06/21 22:22 Blast Cells # 0.0 K/mm3 03/06/21 22:22 WBC Morphology Not Reportable 03/06/21 22:22 Hypersegmented Neuts Not Reportable 03/06/21 22:22 Hyposegmented Neuts Not Reportable 03/06/21 22:22 Hypogranular Neuts Not Reportable 03/06/21 22:22 Smudge Cells Not Reportable 03/06/21 22:22 Toxic Granulation Not Reportable 03/06/21 22:22 Toxic Vacuolation Not Reportable 03/06/21 22:22 Dohle Bodies Not Reportable 03/06/21 22:22 Pelger-Huet Anomaly Not Reportable 03/06/21 22:22 Cliff Rods Not Reportable 03/06/21 22:22 Platelet Estimate Consistent w auto 03/06/21 22:22 Clumped Platelets Not Reportable 03/06/21 22:22 Plt Clumps, EDTA Not Reportable 03/06/21 22:22 Large Platelets Not Reportable 03/06/21 22:22 Giant Platelets Not Reportable 03/06/21 22:22 Platelet Satelliting Not Reportable 03/06/21 22:22 Plt Morphology Comment Not Reportable 03/06/21 22:22 RBC Morphology Not Reportable 03/06/21 22:22 Dimorphic RBCs Not Reportable 03/06/21 22:22 Polychromasia Not Reportable 03/06/21 22:22 Hypochromasia Not Reportable 03/06/21 22:22 Poikilocytosis Not Reportable 03/06/21 22:22 Anisocytosis 2+ 03/06/21 22:22 Microcytosis Not Reportable 03/06/21 22:22 Macrocytosis Not Reportable 03/06/21 22:22 Spherocytes Not Reportable 03/06/21 22:22 Pappenheimer Bodies Not Reportable 03/06/21 22:22 Sickle Cells Not Reportable 03/06/21 22:22 Target Cells Not Reportable 03/06/21 22:22 Tear Drop Cells Not Reportable 03/06/21 22:22 Ovalocytes Not Reportable 03/06/21 22:22 Helmet Cells Not Reportable 03/06/21 22:22 Sosa-Bement Bodies Not Reportable 03/06/21 22:22 Bradford Rings Not Reportable 03/06/21 22:22 Gee Cells Not Reportable 03/06/21 22:22 Bite Cells Not Reportable 03/06/21 22:22 Crenated Cell Not Reportable 03/06/21 22:22 Elliptocytes Not Reportable 03/06/21 22:22 Acanthocytes (Spur) Not Reportable 03/06/21 22:22 Rouleaux Not Reportable 03/06/21 22:22 Hemoglobin C Crystals Not Reportable 03/06/21 22:22 Schistocytes Not Reportable 03/06/21 22:22 Malaria parasites Not Reportable 03/06/21 22:22 Tyson Bodies Not Reportable 03/06/21 22:22 Hem Pathologist Commnt No 03/06/21 22:22 PT 15.0 Sec. (12.2-14.9) H 03/10/21 22:41 INR 1.06 (0.87-1.13) 03/10/21 22:41 APTT 39.8 Sec. (24.2-36.6) H 03/10/21 22:41 Heparin Anti-Xa Level 0.38 U.I./ml (0.3-0.7) 03/10/21 07:35 ABG pH 7.239 pH Units (7.350-7.450) L 03/07/21 03:01 ABG pCO2 32.6 mm Hg 03/07/21 03:01 ABG pO2 117.9 mm Hg (80.0-90.0) H 03/07/21 03:01 ABG HCO3 13.6 mmol/L (20.0-26.0) L 03/07/21 03:01 ABG O2 Saturation 97.9 % (95.0-99.0) 03/07/21 03:01 ABG O2 Content 9.5 (0.0-44) 03/07/21 03:01 ABG Base Excess -12.7 mmol/L (-2.0-3.0) L 03/07/21 03:01 ABG Hemoglobin 6.9 gm/dl (12.0-16.0) L 03/07/21 03:01 ABG Carboxyhemoglobin 1.8 % (0.0-5.0) 03/07/21 03:01 ABG Methemoglobin 0.4 % (0.0-1.5) 03/07/21 03:01 Oxyhemoglobin 95.8 % (95.0-99.0) 03/07/21 03:01 FiO2 70 % 03/07/21 03:01 Sodium 136 mmol/L (137-145) L 03/10/21 07:35 Potassium 4.1 mmol/L (3.6-5.0) 03/10/21 07:35 Chloride 97.5 mmol/L (98-107) L 03/10/21 07:35 Carbon Dioxide 22 mmol/L (22-30) 03/10/21 07:35 Anion Gap 21 mmol/L 03/10/21 07:35 BUN 26 mg/dL (7-17) H 03/10/21 07:35 Creatinine 2.9 mg/dL (0.6-1.2) H 03/10/21 22:41 Estimated GFR 21 ml/min 03/10/21 22:41 BUN/Creatinine Ratio 7 % 03/10/21 07:35 Glucose 107 mg/dL (65-100) H 03/10/21 07:35 POC Glucose 85 mg/dL (70-105) 03/11/21 08:45 Lactic Acid 1.00 mmol/L (0.7-2.0) 03/07/21 00:11 Calcium 8.5 mg/dL (8.4-10.2) 03/10/21 07:35 Total Bilirubin 1.10 mg/dL (0.1-1.2) 03/06/21 22:22 AST 11 units/L (5-40) 03/06/21 22:22 ALT 9 units/L (7-56) 03/06/21 22:22 Alkaline Phosphatase 282 units/L (35-129) H 03/06/21 22:22 Total Creatine Kinase 112 units/L (30-135) 03/07/21 10:35 Troponin T 0.546 ng/mL (0.00-0.029) H* 03/11/21 04:45 NT-Pro-B Natriuret Pep 17159 pg/mL (0-450) H 03/06/21 22: Total Protein 8.7 g/dL (6.3-8.2) H 03/06/21 22: Albumin 4.1 g/dL (3.9-5) 03/06/21 22: Albumin/Globulin Ratio 0.9 % 03/06/21 22: Triglycerides 161 mg/dL (2-149) H 03/06/21 22:22 Cholesterol 180 mg/dL (50-199) 03/06/21 22: LDL Cholesterol Direct 96 mg/dL (50-130) 03/06/21 22: HDL Cholesterol 50 mg/dL (40-59) 03/06/21: Cholesterol/HDL Ratio 3.60 % 03/06/21: Urine Color Yellow (Yellow) 03/07/21 Unknown Urine Turbidity Slightly cloudy (Clear) 03/07/21 Unknown Urine pH 8.0 (5.0-7.0) H 03/07/21 Unknown Ur Specific [place] 1.014 (1.003-1.030) 03/07/21 Unknown Urine Protein >500 mg/dL (Negative) 03/07/21 Unknown Urine Glucose (UA) Neg mg/dL (Negative) 03/07/21 Unknown Urine Ketones Neg mg/dL (Negative) 03/07/21 Unknown Urine Blood Sm (Negative) 03/07/21 Unknown Urine Nitrite Neg (Negative) 03/07/21 Unknown Urine Bilirubin Neg (Negative) 03/07/21 Unknown Urine Urobilinogen < 2.0 mg/dL (<2.0) 03/07/21 Unknown Ur Leukocyte Esterase Lg (Negative) 03/07/21 Unknown Urine WBC (Auto) 28.0 /HPF (0.0-6.0) H 03/07/21 Unknown Urine RBC (Auto) 5.0 /HPF (0.0-6.0) 03/07/21 Unknown U Epithel Cells (Auto) 30.0 /HPF (0-13.0) H 03/07/21 Unknown Calcium Oxalate Crystal 2+ 03/07/21 Unknown Urine Creatinine 103.6 mg/dL (0.1-20.0) H 03/07/21 Unknown Protein/Creatinin Ratio 3.65 03/07/21 Unknown Urine Total Protein 378 mg/dL (5-11.8) H 03/07/21 Unknown Nasal Screen MRSA (PCR) Negative (Negative) 03/08/21 06:25 Coronavirus (PCR) Negative (Negative) 03/08/21 Unknown Hepatitis A IgM Ab Non-reactive (NonReactive) 03/07/21 10:35 Hep Bs Antigen Non-reactive (Negative) 03/07/21 10:35 Hep B Core IgM Ab Non-reactive (NonReactive) 03/07/21 10:35 Hepatitis C Antibody Non-reactive (NonReactive) 03/07/21 10:35 Blood Type A POSITIVE 03/08/21 10:52 Antibody Screen Positive 03/08/21 10:52 Antibody Identification Anti-Jkb 03/08/21 10:52 Crossmatch See Detail 03/08/21 10:52 Motta/IV: Voiding Method External Female Catheter Active Medications - Current Medications Current Medications: Generic Name Dose Route Start Last Admin Trade Name Freq PRN Reason Stop Dose Admin Acetaminophen 650 mg 03/07/21 00:25 Acetaminophen 325 Mg Tab PO Q4H PRN Pain MILD(1-3)/Fever >100.5/GONZALEZ Amlodipine Besylate 10 mg 03/07/21 16:00 03/10/21 10:03 Amlodipine 10 Mg Tab PO 10 mg QDAY IRVIN Administration Apixaban 5 mg 03/10/21 22:00 03/10/21 21:10 Apixaban 5 Mg Tab PO 5 mg Q12HR IRVIN Administration Protocol Atorvastatin Calcium 40 mg 03/07/21 22:00 03/10/21 21:11 Atorvastatin 40 Mg Tab PO 40 mg QHS IRVIN Administration Carvedilol 25 mg 03/07/21 22:00 03/10/21 21:10 Carvedilol 25 Mg Tab PO 25 mg BID IRVIN Administration Dextrose 50 ml 03/07/21 00:25 Dextrose 50% In Water (25gm) 50 Ml Syringe IV Q30MIN PRN Hypoglycemia Protocol Diphenhydramine HCl 25 mg 03/10/21 10:57 03/10/21 21:10 Diphenhydramine 25 Mg Cap PO 25 mg Q8H PRN Administration Itching Furosemide 40 mg 03/07/21 06:00 03/11/21 06:09 Furosemide 40 Mg/4 Ml Inj IV 40 mg BID@0600,1800 IRVIN Administration Hydralazine HCl 75 mg 03/07/21 22:00 03/11/21 06:09 Hydralazine 25 Mg Tab PO 75 mg Q8HR IRVIN Administration Sodium Chloride 100 mls @ 999 mls/hr 03/07/21 10:00 Nacl 0.9% IV YESENIA PRN Hypotension Insulin Human Lispro 0 unit 03/07/21 07:30 03/11/21 00:00 Insulin Lispro 100 Unit/Ml SUB-Q Not Given ACHS [facility] Protocol Isosorbide Mononitrate 30 mg 03/08/21 10:00 03/10/21 10:03 Isosorbide Mononitrate Er 30 Mg Tab PO 30 mg QDAY IRVIN Administration Magnesium Hydroxide 30 ml 03/07/21 00:25 Magnesium Hydroxide (Mom) Oral Liqd Udc PO Q4H PRN Constipation Morphine Sulfate 2 mg 03/07/21 00:25 Morphine 2 Mg/1 Ml Inj IV Q4H PRN Pain, Moderate (4-6) Morphine Sulfate 4 mg 03/07/21 00:25 03/10/21 05:30 Morphine 4 Mg/1 Ml Inj IV 4 mg Q4H PRN Administration Pain , Severe (7-10) Ondansetron HCl 4 mg 03/07/21 00:25 Ondansetron 4 Mg/2 Ml Inj IV Q8H PRN Nausea And Vomiting Oxycodone/Acetaminophen 1 tab 03/10/21 10:57 03/10/21 21:11 Oxycodone /Acetaminophen 5-325mg Tab PO 1 tab Q8H PRN Administration Pain, Moderate (4-6) Sodium Chloride 10 ml 03/07/21 10:00 03/10/21 21:11 Sodium Chloride 0.9% 10 Ml Flush Syringe IV 10 ml BID IRVIN Administration Sodium Chloride 10 ml 03/07/21 00:25 Sodium Chloride 0.9% 10 Ml Flush Syringe IV PRN PRN LINE FLUSH
[2021-03-11] MEDS: INSULIN LISPRO 100 UNIT/ML SUB-Q SCH ×5 (10:03→21:23)
[2021-03-11] MEDS: amLODIPine 10 MG TAB PO SCH (10:04)
[2021-03-11] MEDS: carvediloL 25 MG TAB PO SCH ×2 (10:04→21:23)
[2021-03-11] MEDS: APIXABAN 5 MG TAB PO SCH ×2 (10:04→21:22)
--- NOTE | 2021-03-11 11:13 | Progress Note ---
Assessment and Plan Patient 50-year-old female with a past medical history of HFrEF, paroxysmal A. fib, hypertension, end-stage renal disease not on dialysis, history of CVA, and diabetes who was brought to the ED for shortness of breath/respiratory distress x1 day Echo 08/09/2020- LVEF 35 - 40%. LV systolic function is moderately decreased Grade II (moderate) diastolic dysfunction RV moderately dilated. RV systolic function is mildly reduced. Over all no significant change noted. LVEF appears mildly reduced Lexiscan stress test01/18/2021-Normal rest/stress SPECT myocardial perfusion images. There is no evidence of significant infarction or ischemia. There are no wall motion abnormalities. Left ventricular function is normal. The ejection fraction is 50-70%. Stress/ECG changes are normal. This study suggests a low risk for cardiovascular event and is associated with a cardiac mortality of less than 1% per year. There is no prior study for comparison echo ef 40-45% permacath in place and change to po lasix 80mg , as discussed with renal and no gael or arb, cont current meds and pt will followup with [facility]. - Patient Problems (1) Acute on chronic anemia Current Visit: Yes Status: Acute (2) Acute on chronic renal failure Current Visit: Yes Status: Acute Qualifiers: Acute renal failure type: unspecified Chronic kidney disease stage: stage 5, not on chronic dialysis Qualified Code(s): N17.9 - Acute kidney failure, unspecified; N18.5 - Chronic kidney disease, stage 5 (3) Acute respiratory failure with hypoxia Current Visit: Yes Status: Acute (4) ESRD needing dialysis Current Visit: Yes Status: Acute (5) NSTEMI (non-ST elevated myocardial infarction) Current Visit: Yes Status: Acute (6) Diabetes mellitus Current Visit: Yes Status: Chronic Qualifiers: Diabetes mellitus type: type 2 (7) HLD (hyperlipidemia) Current Visit: Yes Status: Chronic Qualifiers: Hyperlipidemia type: mixed hyperlipidemia Qualified Code(s): E78.2 - Mixed hyperlipidemia (8) HTN (hypertension) Current Visit: Yes Status: Chronic Qualifiers: Hypertension type: renovascular hypertension Qualified Code(s): I15.0 - Renovascular hypertension (9) History of CVA (cerebrovascular accident) Current Visit: Yes Status: Chronic (10) Paroxysmal atrial fibrillation Current Visit: Yes Status: Chronic (11) Acute HFrEF (heart failure with reduced ejection fraction) Current Visit: Yes Status: Acute Subjective Date of service: 03/11/21 Principal diagnosis: ESRD Interval history: sob is better is ambulating Objective Vital Signs Temp Pulse Resp BP Pulse Ox Pulse Ox 03/11/21 10:00 100 03/11/21 03:16 99.1 F 73 19 130/57 99 03/10/21 23:19 100.7 F H 81 19 108/52 100 03/10/21 21:22 98 03/10/21 19:24 77 98 03/10/21 19:18 98.2 F 83 18 150/74 97 03/10/21 16:30 97.9 F 77 18 155/73 85 03/10/21 15:20 98.0 F 76 18 144/68 100 03/10/21 15:00 74 143/67 03/10/21 14:45 75 135/52 03/10/21 14:30 73 145/71 03/10/21 14:15 73 149/59 03/10/21 14:00 77 146/93 03/10/21 13:45 76 132/61 03/10/21 13:30 72 167/71 03/10/21 13:15 71 137/67 03/10/21 13:00 73 126/61 03/10/21 12:45 72 129/57 03/10/21 12:30 73 114/56 03/10/21 12:15 75 134/57 03/10/21 12:00 76 135/52 03/10/21 11:45 75 156/75 03/10/21 11:30 98.0 F 72 18 152/75 100 - Physical Examination General: No Apparent Distress HEENT: Positive: EOMI, Normocephaly Neck: Positive: neck supple, trachea midline Cardiac: Positive: Reg Rate and Rhythm Lungs: Positive: clear to auscultation Neuro: Positive: Grossly Intact Abdomen: Positive: Soft. Negative: Tender Skin: Negative: Rash Extremities: Present: lower extr. pulses. Absent: edema - Labs and Meds Coagulation 03/10/21 Range/Units 22:41 PT 15.0 H (12.2-14.9) Sec. INR 1.06 (0.87-1.13) APTT 39.8 H (24.2-36.6) Sec. CBC 03/10/21 03/11/21 Range/Units 22:41 04:45 WBC 8.0 (4.5-11.0) K/mm3 RBC 2.64 L (3.65-5.03) M/mm3 Hgb 7.9 L 7.4 L (10.1-14.3) gm/dl Hct 25.1 L 22.9 L (30.3-42.9) % Plt Count 152 138 L (140-440) K/mm3 Comprehensive Metabolic Panel 03/10/21 Range/Units 22:41 Creatinine 2.9 H (0.6-1.2) mg/dL - Imaging and Cardiology EKG: report reviewed, image reviewed Echo: report reviewed (07/2020 - EF 35-40%, grade II diastolic dysfunction, mod dilated RV, mildly reduced RVSF), other (ef 40-45%) - Telemetry EKG Rhythm: Sinus Rhythm - EKG Sinus rhythms and dysrhythmias: sinus rhythm Ventricular dysrhythmias: ventricular premature com Repolarization changes or abnormalities: nonspecific abnormality, ST segment, and/or T wave
[2021-03-11] MEDS ORDERED: POLYETHYLENE GLYCOL 3350 17 GM POWDER PO PRN (13:32)
[2021-03-12] MEDS: hydrALAZINE 25 MG TAB PO SCH ×3 (05:21→22:13)
[2021-03-12 06:20] LABS: Hemoglobin 7.3 gm/dl (10.1-14.3); Mean Corpuscular HGB Conc 32 % (30-34); Mean Corpuscular Volume 95 fl (79-97); Platelet Count 148 K/mm3 (140-440); Red Blood Count 2.43 M/mm3 (3.65-5.03)
[2021-03-12 06:22] LABS: Red Cell Distribution Width 23.6 % (13.2-15.2)
--- NOTE | 2021-03-12 08:40 | Progress Note ---
Assessment and Plan Assessment and plan: #End-stage renal disease requiring dialysis -access:[facility] permacath -HD today -Nephrology following, assistance appreciated -discharge pending confirmation of outpatient dialysis chair #Normocytic anemia -stable -s/p 1 unit pRBC; delayed due to finding compatible match -Epo with HD -likely 2/2 to kidney disease #Thrombocytopenia -stable -will continue to monitor #Heart failure reduced ejection fraction -Echocardiogram 07/2020: LVEF 35 to 40% with grade 2 diastolic dysfunction -continue GDMT and lasix -Cardiology following, assistance appreciated #Acute hypoxic respiratory failure-resolved -will wean O2 as tolerated -likely 2/2 to volume overload 2/2 ESRD #Metabolic acidosis-resolved post dialysis -likely 2/2 to ESRD #NSTEMI -troponin 0.586 -EKG w/o ST changes -likely type II 2/2 reduced renal function #Hypertension -BP controlled -continue amlodipine, coreg, hydralazine, imdur #Type 2 diabetes -controlled without pharmacotherapy #Paroxysmal atrial fibrillation -s/p heparin drip, will continue apixaban and BB Disposition Plan: Pending HD chair Total Time Spent with Patient (Minutes): 20 minutes History Interval history: No acute events overnight. She was seen during dialysis. Complains of mild pain at the site of permacath. No other complaints. Hospitalist Physical - Physical exam Narrative exam: GENERAL: Obese. Lying in bed, no distress CHEST/LUNGS: CTAB on RA. HEART/CARDIOVASCULAR: RRR. No murmur, rubs or gallops appreciated. ABDOMEN: +BS. NT/ND. NEURO: No focal motor deficit. EXTREMITIES: No cyanosis, clubbing or edema. PSYCH: Cooperative. - Constitutional Vitals: Temp Pulse Resp BP Pulse Ox 98.4 F 74 18 142/77 92 03/12/21 04:29 03/12/21 04:29 03/12/21 04:29 03/12/21 04:29 03/12/21 04:29 General appearance: Present: no acute distress HEART Score - HEART Score Troponin: Troponin T 0.546 ng/mL (0.00-0.029) H* 03/11/21 04:45 Results - Labs CBC & Chem 7: 03/12/21 06:00 03/10/21 22:41 Labs: Laboratory Last Values WBC 6.3 K/mm3 (4.5-11.0) 03/12/21 06:00 RBC 2.43 M/mm3 (3.65-5.03) L 03/12/21 06:00 Hgb 7.3 gm/dl (10.1-14.3) L 03/12/21 06:00 Hct 23.0 % (30.3-42.9) L 03/12/21 06:00 MCV 95 fl (79-97) 03/12/21 06:00 MCH 30 pg (28-32) 03/12/21 06:00 MCHC 32 % (30-34) 03/12/21 06:00 RDW 23.6 % (13.2-15.2) H 03/12/21 06:00 Plt Count 148 K/mm3 (140-440) 03/12/21 06:00 Add Manual Diff Complete 03/06/21 22:22 Total Counted 100 03/06/21 22:22 Seg Neuts % (Manual) 87.0 % (40.0-70.0) H 03/06/21 22:22 Lymphocytes % (Manual) 9.0 % (13.4-35.0) L 03/06/21 22:22 Monocytes % (Manual) 3.0 % (0.0-7.3) 03/06/21 22:22 Basophils % (Manual) 1.0 % (0.0-1.8) 03/06/21 22:22 Nucleated RBC % 3.0 % (0.0-0.9) H 03/06/21 22:22 Seg Neutrophils # Man 13.6 K/mm3 (1.8-7.7) H 03/06/21 22:22 Band Neutrophils # 0.0 K/mm3 03/06/21 22:22 Lymphocytes # (Manual) 1.4 K/mm3 (1.2-5.4) 03/06/21 22:22 Abs React Lymphs (Man) 0.0 K/mm3 03/06/21 22:22 Monocytes # (Manual) 0.5 K/mm3 (0.0-0.8) 03/06/21 22:22 Eosinophils # (Manual) 0.0 K/mm3 (0.0-0.4) 03/06/21 22:22 Basophils # (Manual) 0.2 K/mm3 (0.0-0.1) H 03/06/21 22:22 Metamyelocytes # 0.0 K/mm3 03/06/21 22:22 Myelocytes # 0.0 K/mm3 03/06/21 22:22 Promyelocytes # 0.0 K/mm3 03/06/21 22:22 Blast Cells # 0.0 K/mm3 03/06/21 22:22 WBC Morphology Not Reportable 03/06/21 22:22 Hypersegmented Neuts Not Reportable 03/06/21 22:22 Hyposegmented Neuts Not Reportable 03/06/21 22:22 Hypogranular Neuts Not Reportable 03/06/21 22:22 Smudge Cells Not Reportable 03/06/21 22:22 Toxic Granulation Not Reportable 03/06/21 22:22 Toxic Vacuolation Not Reportable 03/06/21 22:22 Dohle Bodies Not Reportable 03/06/21 22:22 Pelger-Huet Anomaly Not Reportable 03/06/21 22:22 Cliff Rods Not Reportable 03/06/21 22:22 Platelet Estimate Consistent w auto 03/06/21 22:22 Clumped Platelets Not Reportable 03/06/21 22:22 Plt Clumps, EDTA Not Reportable 03/06/21 22:22 Large Platelets Not Reportable 03/06/21 22:22 Giant Platelets Not Reportable 03/06/21 22:22 Platelet Satelliting Not Reportable 03/06/21 22:22 Plt Morphology Comment Not Reportable 03/06/21 22:22 RBC Morphology Not Reportable 03/06/21 22:22 Dimorphic RBCs Not Reportable 03/06/21 22:22 Polychromasia Not Reportable 03/06/21 22:22 Hypochromasia Not Reportable 03/06/21 22:22 Poikilocytosis Not Reportable 03/06/21 22:22 Anisocytosis 2+ 03/06/21 22:22 Microcytosis Not Reportable 03/06/21 22:22 Macrocytosis Not Reportable 03/06/21 22:22 Spherocytes Not Reportable 03/06/21 22:22 Pappenheimer Bodies Not Reportable 03/06/21 22:22 Sickle Cells Not Reportable 03/06/21 22:22 Target Cells Not Reportable 03/06/21 22:22 Tear Drop Cells Not Reportable 03/06/21 22:22 Ovalocytes Not Reportable 03/06/21 22:22 Helmet Cells Not Reportable 03/06/21 22:22 Sosa-Ball Ground Bodies Not Reportable 03/06/21 22:22 [place] Rings Not Reportable 03/06/21 22:22 [place] Cells Not Reportable 03/06/21 22:22 Bite Cells Not Reportable 03/06/21 22:22 Crenated Cell Not Reportable 03/06/21 22:22 Elliptocytes Not Reportable 03/06/21 22:22 Acanthocytes (Spur) Not Reportable 03/06/21 22:22 Rouleaux Not Reportable 03/06/21 22:22 Hemoglobin C Crystals Not Reportable 03/06/21 22:22 Schistocytes Not Reportable 03/06/21 22:22 Malaria parasites Not Reportable 03/06/21 22:22 Tyson Bodies Not Reportable 03/06/21 22:22 Hem Pathologist Commnt No 03/06/21 22:22 PT 15.0 Sec. (12.2-14.9) H 03/10/21 22:41 INR 1.06 (0.87-1.13) 03/10/21 22:41 APTT 39.8 Sec. (24.2-36.6) H 03/10/21 22:41 Heparin Anti-Xa Level 0.38 U.I./ml (0.3-0.7) 03/10/21 07:35 ABG pH 7.239 pH Units (7.350-7.450) L 03/07/21 03:01 ABG pCO2 32.6 mm Hg 03/07/21 03:01 ABG pO2 117.9 mm Hg (80.0-90.0) H 03/07/21 03:01 ABG HCO3 13.6 mmol/L (20.0-26.0) L 03/07/21 03:01 ABG O2 Saturation 97.9 % (95.0-99.0) 03/07/21 03:01 ABG O2 Content 9.5 (0.0-44) 03/07/21 03:01 ABG Base Excess -12.7 mmol/L (-2.0-3.0) L 03/07/21 03:01 ABG Hemoglobin 6.9 gm/dl (12.0-16.0) L 03/07/21 03:01 ABG Carboxyhemoglobin 1.8 % (0.0-5.0) 03/07/21 03:01 ABG Methemoglobin 0.4 % (0.0-1.5) 03/07/21 03:01 Oxyhemoglobin 95.8 % (95.0-99.0) 03/07/21 03:01 FiO2 70 % 03/07/21 03:01 Sodium 136 mmol/L (137-145) L 03/10/21 07:35 Potassium 4.1 mmol/L (3.6-5.0) 03/10/21 07:35 Chloride 97.5 mmol/L (98-107) L 03/10/21 07:35 Carbon Dioxide 22 mmol/L (22-30) 03/10/21 07:35 Anion Gap 21 mmol/L 03/10/21 07:35 BUN 26 mg/dL (7-17) H 03/10/21 07:35 Creatinine 2.9 mg/dL (0.6-1.2) H 03/10/21 22:41 Estimated GFR 21 ml/min 03/10/21 22:41 BUN/Creatinine Ratio 7 % 03/10/21 07:35 Glucose 107 mg/dL (65-100) H 03/10/21 07:35 POC Glucose 110 mg/dL (70-105) H 03/12/21 08:05 Lactic Acid 1.00 mmol/L (0.7-2.0) 03/07/21 00:11 Calcium 8.5 mg/dL (8.4-10.2) 03/10/21 07:35 Total Bilirubin 1.10 mg/dL (0.1-1.2) 03/06/21 22:22 AST 11 units/L (5-40) 03/06/21 22:22 ALT 9 units/L (7-56) 03/06/21 22:22 Alkaline Phosphatase 282 units/L (35-129) H 03/06/21 22:22 Total Creatine Kinase 112 units/L (30-135) 03/07/21 10:35 Troponin T 0.546 ng/mL (0.00-0.029) H* 03/11/21 04:45 NT-Pro-B Natriuret Pep 71273 pg/mL (0-450) H 03/06/21 22:22 Total Protein 8.7 g/dL (6.3-8.2) H 03/06/21 22: Albumin 4.1 g/dL (3.9-5) 03/06/21 22: Albumin/Globulin Ratio 0.9 % 03/06/21 22: Triglycerides 161 mg/dL (2-149) H 03/06/21 22:22 Cholesterol 180 mg/dL (50-199) 03/06/21 22:22 LDL Cholesterol Direct 96 mg/dL (50-130) 03/06/21 22: HDL Cholesterol 50 mg/dL (40-59) 03/06/21: Cholesterol/HDL Ratio 3.60 % 03/06/21 22: Urine Color Yellow (Yellow) 03/07/21 Unknown Urine Turbidity Slightly cloudy (Clear) 03/07/21 Unknown Urine pH 8.0 (5.0-7.0) H 03/07/21 Unknown Ur Specific [place] 1.014 (1.003-1.030) 03/07/21 Unknown Urine Protein >500 mg/dL (Negative) 03/07/21 Unknown Urine Glucose (UA) Neg mg/dL (Negative) 03/07/21 Unknown Urine Ketones Neg mg/dL (Negative) 03/07/21 Unknown Urine Blood Sm (Negative) 03/07/21 Unknown Urine Nitrite Neg (Negative) 03/07/21 Unknown Urine Bilirubin Neg (Negative) 03/07/21 Unknown Urine Urobilinogen < 2.0 mg/dL (<2.0) 03/07/21 Unknown Ur Leukocyte Esterase Lg (Negative) 03/07/21 Unknown Urine WBC (Auto) 28.0 /HPF (0.0-6.0) H 03/07/21 Unknown Urine RBC (Auto) 5.0 /HPF (0.0-6.0) 03/07/21 Unknown U Epithel Cells (Auto) 30.0 /HPF (0-13.0) H 03/07/21 Unknown Calcium Oxalate Crystal 2+ 03/07/21 Unknown Urine Creatinine 103.6 mg/dL (0.1-20.0) H 03/07/21 Unknown Protein/Creatinin Ratio 3.65 03/07/21 Unknown Urine Total Protein 378 mg/dL (5-11.8) H 03/07/21 Unknown Nasal Screen MRSA (PCR) Negative (Negative) 03/08/21 06:25 Coronavirus (PCR) Negative (Negative) 03/08/21 Unknown Hepatitis A IgM Ab Non-reactive (NonReactive) 03/07/21 10:35 Hep Bs Antigen Non-reactive (Negative) 03/07/21 10:35 Hep B Core IgM Ab Non-reactive (NonReactive) 03/07/21 10:35 Hepatitis C Antibody Non-reactive (NonReactive) 03/07/21 10:35 Blood Type A POSITIVE 03/08/21 10:52 Antibody Screen Positive 03/08/21 10:52 Antibody Identification Anti-Jkb 03/08/21 10:52 Crossmatch See Detail 03/08/21 10:52 Motta/IV: Voiding Method Toilet Active Medications - Current Medications Current Medications: Generic Name Dose Route Start Last Admin Trade Name Freq PRN Reason Stop Dose Admin Acetaminophen 650 mg 03/07/21 00:25 Acetaminophen 325 Mg Tab PO Q4H PRN Pain MILD(1-3)/Fever >100.5/GONZALEZ Amlodipine Besylate 10 mg 03/07/21 16:00 03/11/21 10:04 Amlodipine 10 Mg Tab PO 10 mg QDAY IRVIN Administration Apixaban 5 mg 03/10/21 22:00 03/11/21 21:22 Apixaban 5 Mg Tab PO 5 mg Q12HR IRVIN Administration Protocol Atorvastatin Calcium 40 mg 03/07/21 22:00 03/11/21 21:23 Atorvastatin 40 Mg Tab PO 40 mg QHS IRVNI Administration Carvedilol 25 mg 03/07/21 22:00 03/11/21 21:23 Carvedilol 25 Mg Tab PO 25 mg BID IRVIN Administration Dextrose 50 ml 03/07/21 00:25 Dextrose 50% In Water (25gm) 50 Ml Syringe IV Q30MIN PRN Hypoglycemia Protocol Diphenhydramine HCl 25 mg 03/10/21 10:57 03/10/21 21:10 Diphenhydramine 25 Mg Cap PO 25 mg Q8H PRN Administration Itching Furosemide 80 mg 03/12/21 10:00 Furosemide 40 Mg Tab PO QDAY IRVIN Hydralazine HCl 75 mg 03/07/21 22:00 03/12/21 05:21 Hydralazine 25 Mg Tab PO 75 mg Q8HR IRVIN Administration Sodium Chloride 100 mls @ 999 mls/hr 03/07/21 10:00 Nacl 0.9% IV YESENIA PRN Hypotension Insulin Human Lispro 0 unit 03/07/21 07:30 03/11/21 21:23 Insulin Lispro 100 Unit/Ml SUB-Q Not Given ACHS [facility] Protocol Isosorbide Mononitrate 30 mg 03/08/21 10:00 03/11/21 10:04 Isosorbide Mononitrate Er 30 Mg Tab PO 30 mg QDAY IVRIN Administration Morphine Sulfate 2 mg 03/07/21 00:25 03/11/21 21:22 Morphine 2 Mg/1 Ml Inj IV 2 mg Q4H PRN Administration Pain, Moderate (4-6) Morphine Sulfate 4 mg 03/07/21 00:25 03/10/21 05:30 Morphine 4 Mg/1 Ml Inj IV 4 mg Q4H PRN Administration Pain , Severe (7-10) Ondansetron HCl 4 mg 03/07/21 00:25 Ondansetron 4 Mg/2 Ml Inj IV Q8H PRN Nausea And Vomiting Oxycodone/Acetaminophen 1 tab 03/10/21 10:57 03/10/21 21:11 Oxycodone /Acetaminophen 5-325mg Tab PO 1 tab Q8H PRN Administration Pain, Moderate (4-6) Polyethylene Glycol 17 gm 03/11/21 13:32 03/11/21 14:46 Polyethylene Glycol 3350 17 Gm Powder PO 17 gm QDAY PRN Administration Constipation Sodium Chloride 10 ml 03/07/21 10:00 03/11/21 21:23 Sodium Chloride 0.9% 10 Ml Flush Syringe IV 10 ml BID IRVIN Administration Sodium Chloride 10 ml 03/07/21 00:25 Sodium Chloride 0.9% 10 Ml Flush Syringe IV PRN PRN LINE FLUSH
[2021-03-12] MEDS ORDERED: SODIUM CHLORIDE 0.9% 100 ML IV PRN (09:00)
--- NOTE | 2021-03-12 09:05 | Ultrasound Report ---
ULTRASOUND RENAL INDICATION / CLINICAL INFORMATION: LELIA. COMPARISON: 03/29/2020 FINDINGS: RIGHT KIDNEY: Length = 11.5 cm. - Echogenicity: Increased - Cortical Thickness: Normal. - Hydronephrosis: None. - Cyst or mass: No significant abnormality. - Stones: None seen. LEFT KIDNEY: Length = 11.7 cm. - Echogenicity: Increased - Cortical Thickness: Normal. - Hydronephrosis: None. - Cyst or mass: No significant abnormality. - Stones: None seen. URINARY BLADDER: No significant abnormality. FREE FLUID: None. ADDITIONAL FINDINGS: None. IMPRESSION: 1. Increased echogenicity of bilateral kidneys suggest medical renal disease. Signer Name: Yosef Currie MD Signed: 03/12/2021 9:01 AM Workstation Name: [email or web address]
[2021-03-12] MEDS: INSULIN LISPRO 100 UNIT/ML SUB-Q SCH ×4 (09:25→22:51)
--- NOTE | 2021-03-12 09:53 | Progress Note ---
Subjective Date of service: 03/12/21 Principal diagnosis: ESRD Interval history: Assessment - End-stage renal disease - Fluid overload - Hypertension - Anemia of ESRD - Hyperparathyroidism - Hyperphosphatemia Recommendations - HDq MWF and prn uf as tolerated with hd - S/p permcath placement, - Continue home antihypertensives - Hold antihypertensives on hemodialysis days for systolics less than 160 - Epogen with HD - ESRD diet with 1.4 g/kg per day protein - Renally dose medication for creatinine clearance less than 15 cc/min - HD placement--[facility]--MWF 620AM ok to dc after hd from renal standpoint Subjective Principal diagnosis: ESRD Interval history: Patient was seen for her renal issues Nursing, interdisciplinary and consult notes were reviewed Vitals, input and output, medications and labs were reviewed Seen during dialysis, s/p permcath Objective - Exam Narrative Exam: General: No acute distress HEENT: Oral mucosa moist Neck: Supple, no JVD Chest: Decreased bibasilar breath sounds Heart: RRR, S1 and S2, no pericardial rub Abdomen: Soft, nontender, no renal bruit Extremity: No peripheral cyanosis, edema Neurological: Alert, awake, no asterixis Dermatology: No skin rash Psych: No agitation Musculoskeletal: No joint effusion Objective - Vital Signs Vital signs: Vital Signs - 12hr 03/11/21 03/11/21 03/11/21 21:59 23:35 23:38 Temperature 98.4 F Pulse Rate 72 Respiratory 18 Rate Blood Pressure 133/74 O2 Sat by Pulse 98 96 97 Oximetry 03/12/21 03/12/21 03/12/21 00:00 04:29 08:27 Temperature 98.4 F 98.9 F Pulse Rate 72 74 73 Respiratory 18 18 Rate Blood Pressure 142/77 147/85 O2 Sat by Pulse 92 97 Oximetry - Lab 03/12/21 06:00 03/10/21 22:41 Most recent lab results ABG pH 7.239 pH Units (7.350-7.450) L 03/07/21 03:01 ABG pCO2 32.6 mm Hg 03/07/21 03:01 ABG pO2 117.9 mm Hg (80.0-90.0) H 03/07/21 03:01 ABG HCO3 13.6 mmol/L (20.0-26.0) L 03/07/21 03:01 ABG O2 Saturation 97.9 % (95.0-99.0) 03/07/21 03:01 Calcium 8.5 mg/dL (8.4-10.2) 03/10/21 07:35 Urine Creatinine 103.6 mg/dL (0.1-20.0) H 03/07/21 Unknown Urine Total Protein 378 mg/dL (5-11.8) H 03/07/21 Unknown Medications & Allergies - Medications Allergies/Adverse Reactions: Allergies lisinopril Allergy (Verified 03/08/21 03:21) Unknown meperidine HCl [From Demerol] Allergy (Verified 03/08/21 03:21) Itching penicillin Allergy (Verified 03/08/21 03:21) Unknown Home Medications: Home Medications Medication Instructions Recorded Confirmed Last Taken Type Bumetanide 4 mg PO BID 03/28/20 03/08/21 03/06/21 History Hydralazine HCl 75 mg PO TID 03/28/20 03/08/21 03/06/21 History ISOSORBIDE MONOnitrate [Imdur ER] 30 mg PO DAILY 03/28/20 03/08/21 03/06/21 History Sevelamer Carbonate [Renvela] 800 mg PO TID 03/28/20 03/08/21 03/08/21 History allopurinoL [Zyloprim] 300 mg PO QDAY 03/28/20 03/08/21 03/06/21 History amLODIPine [Norvasc] 10 mg PO DAILY 03/28/20 03/08/21 03/06/21 History carvediloL [Coreg] 25 mg PO BID 03/28/20 03/08/21 03/06/21 History glipiZIDE [Glucotrol] 10 mg PO BID 03/28/20 03/08/21 03/06/21 History calcitrioL [Rocaltrol] 0.5 mcg PO QDAY 03/08/21 03/08/21 03/06/21 History metOLazone [Zaroxolyn] 5 mg PO QDAY 03/08/21 03/08/21 03/06/21 History Active Medications: Generic Name Dose Route Start Last Admin Trade Name Freq PRN Reason Stop Dose Admin Acetaminophen 650 mg 03/07/21 00:25 Acetaminophen 325 Mg Tab PO Q4H PRN Pain MILD(1-3)/Fever >100.5/GONZALEZ Amlodipine Besylate 10 mg 03/07/21 16:00 03/11/21 10:04 Amlodipine 10 Mg Tab PO 10 mg QDAY IRVIN Administration Apixaban 5 mg 03/10/21 22:00 03/11/21 21:22 Apixaban 5 Mg Tab PO 5 mg Q12HR IRVIN Administration Protocol Atorvastatin Calcium 40 mg 03/07/21 22:00 03/11/21 21:23 Atorvastatin 40 Mg Tab PO 40 mg QHS IRVIN Administration Carvedilol 25 mg 03/07/21 22:00 03/11/21 21:23 Carvedilol 25 Mg Tab PO 25 mg BID IRVIN Administration Dextrose 50 ml 03/07/21 00:25 Dextrose 50% In Water (25gm) 50 Ml Syringe IV Q30MIN PRN Hypoglycemia Protocol Diphenhydramine HCl 25 mg 03/10/21 10:57 03/10/21 21:10 Diphenhydramine 25 Mg Cap PO 25 mg Q8H PRN Administration Itching Furosemide 80 mg 03/12/21 10:00 Furosemide 40 Mg Tab PO QDAY IRVIN Hydralazine HCl 75 mg 03/07/21 22:00 03/12/21 05:21 Hydralazine 25 Mg Tab PO 75 mg Q8HR IRVIN Administration Sodium Chloride 100 mls @ 999 mls/hr 03/12/21 09:00 Nacl 0.9% IV YESENIA PRN Hypotension Insulin Human Lispro 0 unit 03/07/21 07:30 03/12/21 09:25 Insulin Lispro 100 Unit/Ml SUB-Q Not Given ACHS [facility] Protocol Isosorbide Mononitrate 30 mg 03/08/21 10:00 03/11/21 10:04 Isosorbide Mononitrate Er 30 Mg Tab PO 30 mg QDAY IRVIN Administration Morphine Sulfate 2 mg 03/07/21 00:25 03/11/21 21:22 Morphine 2 Mg/1 Ml Inj IV 2 mg Q4H PRN Administration Pain, Moderate (4-6) Morphine Sulfate 4 mg 03/07/21 00:25 03/10/21 05:30 Morphine 4 Mg/1 Ml Inj IV 4 mg Q4H PRN Administration Pain , Severe (7-10) Ondansetron HCl 4 mg 03/07/21 00:25 Ondansetron 4 Mg/2 Ml Inj IV Q8H PRN Nausea And Vomiting Oxycodone/Acetaminophen 1 tab 03/10/21 10:57 03/10/21 21:11 Oxycodone /Acetaminophen 5-325mg Tab PO 1 tab Q8H PRN Administration Pain, Moderate (4-6) Polyethylene Glycol 17 gm 03/11/21 13:32 03/11/21 14:46 Polyethylene Glycol 3350 17 Gm Powder PO 17 gm QDAY PRN Administration Constipation Sodium Chloride 10 ml 03/07/21 10:00 03/11/21 21:23 Sodium Chloride 0.9% 10 Ml Flush Syringe IV 10 ml BID IRVIN Administration Sodium Chloride 10 ml 03/07/21 00:25 Sodium Chloride 0.9% 10 Ml Flush Syringe IV PRN PRN LINE FLUSH
[2021-03-12] MEDS ORDERED: FUROSEMIDE 40 MG TAB PO SCH (10:00)
[2021-03-12] MEDS ORDERED: EPOETIN ALFA-EPBX 2,000 UNIT/1 ML INJ IV PRN (10:00)
[2021-03-12] MEDS ORDERED: EPOETIN ALFA-EPBX 20,000 UNIT/1 ML VIAL IV PRN (13:03)
--- NOTE | 2021-03-12 13:21 | Progress Note ---
Assessment and Plan Patient 50-year-old female with a past medical history of HFrEF, paroxysmal A. fib, hypertension, end-stage renal disease not on dialysis, history of CVA, and diabetes who was brought to the ED for shortness of breath/respiratory distress x1 day ESRD on HD NSTEMI type 2 Chronic HFrEF PAF- on eliquis as OP h/o CVA HTN DM Echo 08/09/2020- LVEF 35 - 40%. LV systolic function is moderately decreased Grade II (moderate) diastolic dysfunction RV moderately dilated. RV systolic function is mildly reduced. Over all no significant change noted. LVEF appears mildly reduced Lexiscan stress test01/18/2021-Normal rest/stress SPECT myocardial perfusion images. There is no evidence of significant infarction or ischemia. There are no wall motion abnormalities. Left ventricular function is normal. The ejection fraction is 50-70%. Stress/ECG changes are normal. This study suggests a low risk for cardiovascular event and is associated with a cardiac mortality of less than 1% per year. There is no prior study for comparison Plan: Volume optimization via HD. Antihypertensive mgmt as per Nephro recs. Patient has no cardiac complaints Patient cardiac status is stable. Will sign off Patient should follow up with their primary cardiologists in 1-2 weeks after discharge Patient seen in conjunction with Dr. Tinajero who agrees with this plan of care. - Patient Problems (1) Acute on chronic renal failure Current Visit: Yes Status: Acute Qualifiers: Acute renal failure type: unspecified Chronic kidney disease stage: stage 5, not on chronic dialysis Qualified Code(s): N17.9 - Acute kidney failure, unspecified; N18.5 - Chronic kidney disease, stage 5 (2) Acute respiratory failure with hypoxia Current Visit: Yes Status: Acute (3) Elevated troponin Current Visit: Yes Status: Acute (4) HTN (hypertension) Current Visit: Yes Status: Chronic Qualifiers: Hypertension type: renovascular hypertension Qualified Code(s): I15.0 - Renovascular hypertension (5) Cardiomyopathy Current Visit: Yes Status: Chronic (6) Diabetes mellitus Current Visit: Yes Status: Chronic Qualifiers: Diabetes mellitus type: type 2 (7) History of CVA (cerebrovascular accident) Current Visit: Yes Status: Chronic (8) Paroxysmal atrial fibrillation Current Visit: Yes Status: Chronic (9) Anemia Current Visit: No Status: Acute Subjective Date of service: 03/12/21 Principal diagnosis: ESRD Interval history: Patient for HD this AM. Patient reports feeling much better. Patient sinus 70s on monitors with no events Objective Vital Signs Temp Pulse Resp BP Pulse Ox 03/12/21 08:27 98.9 F 73 18 147/85 97 03/12/21 04:29 98.4 F 74 18 142/77 92 03/12/21 00:00 72 03/11/21 23:38 98.4 F 72 18 133/74 97 03/11/21 23:35 96 03/11/21 21:59 98 03/11/21 19:25 98.3 F 74 20 141/70 96 03/11/21 15:20 99.2 F 76 18 121/62 95 - Physical Examination General: No Apparent Distress HEENT: Positive: EOMI, Normocephaly Neck: Positive: neck supple, trachea midline Cardiac: Positive: Reg Rate and Rhythm Lungs: Positive: Normal Breath Sounds Neuro: Positive: Grossly Intact Abdomen: Positive: Soft. Negative: Tender Skin: Negative: Rash Extremities: Present: lower extr. pulses. Absent: edema - Labs and Meds CBC 03/12/21 Range/Units 06:00 WBC 6.3 (4.5-11.0) K/mm3 RBC 2.43 L (3.65-5.03) M/mm3 Hgb 7.3 L (10.1-14.3) gm/dl Hct 23.0 L (30.3-42.9) % Plt Count 148 (140-440) K/mm3 - Imaging and Cardiology EKG: report reviewed, image reviewed Echo: report reviewed (07/2020 - EF 35-40%, grade II diastolic dysfunction, mod dilated RV, mildly reduced RVSF), other (ef 40-45%) - EKG Sinus rhythms and dysrhythmias: sinus rhythm Ventricular dysrhythmias: ventricular premature com Repolarization changes or abnormalities: nonspecific abnormality, ST segment, and/or T wave
[2021-03-12] MEDS: APIXABAN 5 MG TAB PO SCH ×2 (14:36→22:14)
[2021-03-12] MEDS: amLODIPine 10 MG TAB PO SCH (14:37)
[2021-03-12] MEDS: FUROSEMIDE 40 MG TAB PO SCH (14:37)
[2021-03-12] MEDS: carvediloL 25 MG TAB PO SCH ×2 (14:40→22:14)
[2021-03-13] MEDS: hydrALAZINE 25 MG TAB PO SCH (06:36)
[2021-03-13 07:27] LABS: Hematocrit 27.3 % (30.3-42.9); Hemoglobin 8.4 gm/dl (10.1-14.3)
[2021-03-13 07:41] LABS: Calcium 8.8 mg/dL (8.4-10.2)
[2021-03-13] MEDS: INSULIN LISPRO 100 UNIT/ML SUB-Q SCH (09:00)
--- NOTE | 2021-03-13 09:09 | Progress Note ---
Subjective Date of service: 03/13/21 Principal diagnosis: ESRD Interval history: Assessment - End-stage renal disease - Fluid overload - Hypertension - Anemia of ESRD - Hyperparathyroidism - Hyperphosphatemia Recommendations - HDq MWF and prn uf as tolerated with hd - S/p permcath placement, - Continue home antihypertensives - Hold antihypertensives on hemodialysis days for systolics less than 160 - Epogen with HD - ESRD diet with 1.4 g/kg per day protein - Renally dose medication for creatinine clearance less than 15 cc/min - HD placement--[facility]--MWF 620AM ok to [place] home today Subjective Principal diagnosis: ESRD Interval history: Patient was seen for her renal issues Nursing, interdisciplinary and consult notes were reviewed Vitals, input and output, medications and labs were reviewed Seen during dialysis, s/p permcath Objective - Exam Narrative Exam: General: No acute distress HEENT: Oral mucosa moist Neck: Supple, no JVD Chest: Decreased bibasilar breath sounds Heart: RRR, S1 and S2, no pericardial rub Abdomen: Soft, nontender, no renal bruit Extremity: No peripheral cyanosis, edema Neurological: Alert, awake, no asterixis Dermatology: No skin rash Psych: No agitation Musculoskeletal: No joint effusion Objective - Vital Signs Vital signs: Vital Signs - 12hr 03/12/21 03/12/21 03/12/21 21:18 22:00 22:08 Temperature Pulse Rate 77 Respiratory 18 Rate Blood Pressure 137/52 O2 Sat by Pulse 100 94 95 Oximetry 03/12/21 03/12/21 03/13/21 22:13 22:14 06:34 Temperature Pulse Rate 77 Respiratory 16 Rate Blood Pressure 134/52 134/52 135/65 O2 Sat by Pulse 94 Oximetry 03/13/21 03/13/21 06:36 08:15 Temperature 98.0 F Pulse Rate 80 Respiratory 18 Rate Blood Pressure 135/65 117/50 O2 Sat by Pulse 100 Oximetry - Lab 03/13/21 06:55 03/13/21 06:55 Most recent lab results ABG pH 7.239 pH Units (7.350-7.450) L 03/07/21 03:01 ABG pCO2 32.6 mm Hg 03/07/21 03:01 ABG pO2 117.9 mm Hg (80.0-90.0) H 03/07/21 03:01 ABG HCO3 13.6 mmol/L (20.0-26.0) L 03/07/21 03:01 ABG O2 Saturation 97.9 % (95.0-99.0) 03/07/21 03:01 Calcium 8.8 mg/dL (8.4-10.2) 03/13/21 06:55 Urine Creatinine 103.6 mg/dL (0.1-20.0) H 03/07/21 Unknown Urine Total Protein 378 mg/dL (5-11.8) H 03/07/21 Unknown Medications & Allergies - Medications Allergies/Adverse Reactions: Allergies lisinopril Allergy (Verified 03/12/21 12:17) COUGH meperidine HCl [From Demerol] Allergy (Verified 03/12/21 12:17) Itching Home Medications: Home Medications Medication Instructions Recorded Confirmed Last Taken Type Hydralazine HCl 75 mg PO TID 03/28/20 03/08/21 03/06/21 History ISOSORBIDE MONOnitrate [Imdur ER] 30 mg PO DAILY 03/28/20 03/08/21 03/06/21 History allopurinoL [Zyloprim] 300 mg PO QDAY 03/28/20 03/08/21 03/06/21 History amLODIPine 10 mg PO DAILY 03/28/20 03/08/21 03/06/21 History carvediloL [Coreg] 25 mg PO BID 03/28/20 03/08/21 03/06/21 History calcitrioL [Rocaltrol] 0.5 mcg PO QDAY 03/08/21 03/08/21 03/06/21 History Apixaban [Eliquis] 5 mg PO Q12HR 30 Days #60 tablet 03/12/21 Unknown Rx AtorvaSTATin [Lipitor] 40 mg PO QHS 30 Days #30 tablet 03/12/21 Unknown Rx Folic Acid 0.4 mg PO QDAY 03/12/21 03/12/21 03/06/21 History Furosemide [Lasix TAB] 80 mg PO QDAY 30 Days #60 tablet 03/12/21 Unknown Rx oxyCODONE [roxiCODONE] 5 mg PO Q6HR PRN 3 Days #12 tablet 03/12/21 Unknown Rx Active Medications: Generic Name Dose Route Start Last Admin Trade Name Freq PRN Reason Stop Dose Admin Acetaminophen 650 mg 03/07/21 00:25 Acetaminophen 325 Mg Tab PO Q4H PRN Pain MILD(1-3)/Fever >100.5/GONZALEZ Amlodipine Besylate 10 mg 03/07/21 16:00 03/12/21 14:37 Amlodipine 10 Mg Tab PO 10 mg QDAY IRVIN Administration Apixaban 5 mg 03/10/21 22:00 03/12/21 22:14 Apixaban 5 Mg Tab PO 5 mg Q12HR IRVIN Administration Protocol Atorvastatin Calcium 40 mg 03/07/21 22:00 03/12/21 22:14 Atorvastatin 40 Mg Tab PO 40 mg QHS IRVIN Administration Carvedilol 25 mg 03/07/21 22:00 03/12/21 22:14 Carvedilol 25 Mg Tab PO 25 mg BID IRVIN Administration Dextrose 50 ml 03/07/21 00:25 Dextrose 50% In Water (25gm) 50 Ml Syringe IV Q30MIN PRN Hypoglycemia Protocol Diphenhydramine HCl 25 mg 03/10/21 10:57 03/10/21 21:10 Diphenhydramine 25 Mg Cap PO 25 mg Q8H PRN Administration Itching Furosemide 80 mg 03/12/21 10:00 03/12/21 14:37 Furosemide 40 Mg Tab PO 80 mg QDAY IRVIN Administration Hydralazine HCl 75 mg 03/07/21 22:00 03/13/21 06:36 Hydralazine 25 Mg Tab PO 75 mg Q8HR IRVIN Administration Sodium Chloride 100 mls @ 999 mls/hr 03/12/21 09:00 Nacl 0.9% IV YESENIA PRN Hypotension Insulin Human Lispro 0 unit 03/07/21 07:30 03/13/21 09:00 Insulin Lispro 100 Unit/Ml SUB-Q Not Given ACHS [facility] Protocol Isosorbide Mononitrate 30 mg 03/08/21 10:00 03/12/21 14:36 Isosorbide Mononitrate Er 30 Mg Tab PO 30 mg QDAY IRVIN Administration Morphine Sulfate 2 mg 03/07/21 00:25 03/11/21 21:22 Morphine 2 Mg/1 Ml Inj IV 2 mg Q4H PRN Administration Pain, Moderate (4-6) Morphine Sulfate 4 mg 03/07/21 00:25 03/10/21 05:30 Morphine 4 Mg/1 Ml Inj IV 4 mg Q4H PRN Administration Pain , Severe (7-10) Ondansetron HCl 4 mg 03/07/21 00:25 Ondansetron 4 Mg/2 Ml Inj IV Q8H PRN Nausea And Vomiting Oxycodone/Acetaminophen 1 tab 03/10/21 10:57 03/10/21 21:11 Oxycodone /Acetaminophen 5-325mg Tab PO 1 tab Q8H PRN Administration Pain, Moderate (4-6) Polyethylene Glycol 17 gm 03/11/21 13:32 03/11/21 14:46 Polyethylene Glycol 3350 17 Gm Powder PO 17 gm QDAY PRN Administration Constipation Sodium Chloride 10 ml 03/07/21 10:00 03/12/21 22:14 Sodium Chloride 0.9% 10 Ml Flush Syringe IV 10 ml BID IRVIN Administration Sodium Chloride 10 ml 03/07/21 00:25 Sodium Chloride 0.9% 10 Ml Flush Syringe IV PRN PRN LINE FLUSH
[2021-03-13] MEDS: amLODIPine 10 MG TAB PO SCH (10:05)
[2021-03-13 10:06] VITALS: BP 132/72
[2021-03-13] MEDS: carvediloL 25 MG TAB PO SCH (10:06)
[2021-03-13] MEDS: APIXABAN 5 MG TAB PO SCH (10:06)
[2021-03-13] MEDS: FUROSEMIDE 40 MG TAB PO SCH (10:06)
--- NOTE | 2021-03-13 13:50 | Discharge Summary ---
Providers - Providers Date of Admission: 03/07/21 00:25 Date of discharge: 03/13/21 Attending physician: TEREZA NOVA MD 03/06/21 23:54 Consult to Physician [CONS] Routine Comment: Dr. Amin spoke with Dr. Enriquez @ [id number] Consulting Provider: FACUNDO ENRIQUEZ Physician Instructions: Reason For Exam: ESRD not yet on HD, Volume Overload / Pulm Edema 03/07/21 00:36 Consult to Cardiology [CONS] Routine Consulting Provider: PABLO NICHOLSON Reason For Exam: CHF 03/07/21 09:09 Consult to Physician [CONS] Urgent Comment: Consulting Provider: JAIRO GALLARDO Physician Instructions: Reason For Exam: Vasc cath for HD 03/09/21 07:00 Consult to Physician [CONS] Routine Comment: Spoke to Syeda/Deyanira Consulting Provider: JAIRO GALLARDO Physician Instructions: Reason For Exam: Perm cath placement 03/12/21 09:55 Consult to Case Management [CONS] Routine Services Needed at Discharge: Other Notified:: SENIOR SQL DEVELOPER Additional Physician Instructions: hd placement [facility], [facility] Primary care physician: DRAWING IN HAND Hospitalization Reason for admission: Acute hypoxic respiratory failure; volume overload Condition: Serious Pertinent studies: Reviewed. Procedures: Permacath placement. Hospital course: Patient is a 50-year-old female past medical history of of chronic systolic heart failure (EF 35-40%), paroxysmal A. fib (on Eliquis), hypertension, ESRD on hemodialysis, history of CVA, and diabetes mellitus type 2 who presented with dyspnea, orthopnea, and respiratory distress x1 day. The patient presented with fluid overload and was initiated on hemodialysis after placement of permacath. The patient has undergone hemodialysis x2. The patient has a HD chair at [facility] and will continue a MWF schedule. The patient was evaluated by cardiology for NSTEMI (type II) that was likely secondary in the setting of ESRD. The patient will follow with her primary b2b sales consultant in approximately 1 to 2 weeks after discharge. The patient expressed understanding, and will be discharged home safely. Disposition: 01 HOME / SELF CARE / HOMELESS Final Discharge Diagnosis (Prints w/discharge instructions): Chronic systolic heart failure, paroxysmal A. fib, hypertension, ESRD on hemodialysis, NSTEMI type II, history of CVA, diabetes mellitus type 2, anemia of chronic disease, hyperparathyroidism, hyperphosphatemia Time spent for discharge: 45 min Core Measure Documentation - Palliative Care Palliative Care/ Comfort Measures: Not Applicable - Core Measures Any of the following diagnoses?: history only - VTE Discharge Requirements Deep Vein Thrombosis/Pulmonary Embolism Present on Admission: No Has pt received <5 days of overlap therapy or INR<2.0: No (Not indicated) Anticoagulant overlap therapy prescribed at discharge: No Contraindication No Overlap Therapy order at DC: Not Indicated - Acute [place] Discharge Requirements Aspirin at discharge: No Reason for no aspirin on DC: Medical contraindication (Not indicated) MODESTO/ARB for LVSD if EF <40%: Not Applicable Reason for no MODESTO/ARB: Renal impairment Beta zachary at discharge: Yes Statin for LDL = or >100 mg/dl on DC: Yes - Heart Failure Discharge Requirements MODESTO/ARB for LVSD if EF <40%: Not Applicable Reason for no MODESTO/ARB: Renal impairment Beta zachary at discharge: Yes - Stroke Discharge Requirements Statin for LDL = or >70 mg/dl on DC: Yes Anticoag for atrial fib/atrial flutter: Yes Antithrombotic for ischemic stroke: Yes Exam - Constitutional Vitals: Temp Pulse Resp BP Pulse Ox 98.0 F 74 18 132/72 97 03/13/21 08:15 03/13/21 10:06 03/13/21 08:15 03/13/21 10:05 03/13/21 10:00 General appearance: Present: no acute distress, well-nourished, obese - EENT Eyes: Present: PERRL, EOM intact ENT: hearing intact, clear oral mucosa, dentition normal - Neck Neck: Present: supple, normal ROM, other (Permacath and upper chest) - Respiratory Respiratory effort: normal Respiratory: bilateral: CTA - Cardiovascular Rhythm: regular Heart Sounds: Present: S1 & S2 - Extremities Extremities: no ischemia, pulses intact, pulses symmetrical, No edema, normal temperature, normal color Peripheral Pulses: within normal limits - Abdominal General gastrointestinal: Present: soft, non-tender, non-distended, normal bowel sounds Female genitourinary: Present: deferred - Rectal Rectal Exam: deferred - Integumentary Integumentary: Present: clear, warm, dry - Musculoskeletal Musculoskeletal: strength equal bilaterally - Psychiatric Psychiatric: appropriate mood/affect, intact judgment & insight, memory intact, cooperative - Neurologic Neurologic: CNII-XII intact, moves all extremities - Allied Health Allied health notes reviewed: nursing Plan Activity: no restrictions Diet: low salt, renal Care Plan Goals: Follow up with Cardiology at [place] within the next two weeks. Please report to dialysis at your designated time on MWFs. Follow up with: PRIMARY CARE, [Primary Care Provider] - 7 Days Prescriptions: AtorvaSTATin [Lipitor] 40 mg PO QHS 30 Days #30 tablet Apixaban [Eliquis] 5 mg PO Q12HR 30 Days #60 tablet Furosemide [Lasix TAB] 80 mg PO QDAY 30 Days #60 tablet
== END 2021-03-13 14:00 | disposition home or self-care (01) | DRG 673 ==
LOC: ED 22:06 → IMCU 03-07 00:25 → 4A 03-10 16:01
PROVIDERS: ADMIT Internal Medicine Geriatric Medicine; ATTEND Student in an Organized Health Care Education/Training Program
PROC: 5A09357 Assistance with Respiratory Ventilation, Less than 24 Consecutive Hours, Continuous Positive Airway Pressure (ICD-10-PCS; 2021-03-06)
PROC: 06HY33Z Insertion of Infusion Device into Lower Vein, Percutaneous Approach (ICD-10-PCS; 2021-03-07)
PROC: B54BZZA Ultrasonography of Right Lower Extremity Veins, Guidance (ICD-10-PCS; 2021-03-07)
PROC: 4A033R1 Measurement of Arterial Saturation, Peripheral, Percutaneous Approach (ICD-10-PCS; 2021-03-07)
PROC: 5A1D70Z Performance of Urinary Filtration, Intermittent, Less than 6 Hours Per Day (ICD-10-PCS; 2021-03-07)
PROC: 30233N1 Transfusion of Nonautologous Red Blood Cells into Peripheral Vein, Percutaneous Approach (ICD-10-PCS; 2021-03-08)
PROC: 5A1D70Z Performance of Urinary Filtration, Intermittent, Less than 6 Hours Per Day (ICD-10-PCS; 2021-03-08)
PROC: 0JH63XZ Insertion of Tunneled Vascular Access Device into Chest Subcutaneous Tissue and Fascia, Percutaneous Approach (ICD-10-PCS; principal; 2021-03-09)
PROC: 02H633Z Insertion of Infusion Device into Right Atrium, Percutaneous Approach (ICD-10-PCS; 2021-03-09)
PROC: B5181ZA Fluoroscopy of Superior Vena Cava using Low Osmolar Contrast, Guidance (ICD-10-PCS; 2021-03-09)
PROC: B548ZZA Ultrasonography of Superior Vena Cava, Guidance (ICD-10-PCS; 2021-03-09)
PROC: 5A1D70Z Performance of Urinary Filtration, Intermittent, Less than 6 Hours Per Day (ICD-10-PCS; 2021-03-10)
PROC: 5A09357 Assistance with Respiratory Ventilation, Less than 24 Consecutive Hours, Continuous Positive Airway Pressure (ICD-10-PCS; 2021-03-10)
PROC: 5A1D70Z Performance of Urinary Filtration, Intermittent, Less than 6 Hours Per Day (ICD-10-PCS; 2021-03-12)
PROC: 5A09357 Assistance with Respiratory Ventilation, Less than 24 Consecutive Hours, Continuous Positive Airway Pressure (ICD-10-PCS; 2021-03-12)
DX: N17.9 Acute kidney failure, unspecified (principal); I21.A1 Myocardial infarction type 2; J96.01 Acute respiratory failure with hypoxia; J81.0 Acute pulmonary edema; I50.23 Acute on chronic systolic (congestive) heart failure; E87.2 Acidosis; I13.2 Hypertensive heart and chronic kidney disease with heart failure and with stage 5 chronic kidney disease, or end stage renal disease; I42.8 Other cardiomyopathies; N18.6 End stage renal disease; Z99.2 Dependence on renal dialysis; Z20.822 Contact with and (suspected) exposure to COVID-19; Z88.8 Allergy status to other drugs, medicaments and biological substances; Z86.73 Personal history of transient ischemic attack (TIA), and cerebral infarction without residual deficits; I48.0 Paroxysmal atrial fibrillation; E11.22 Type 2 diabetes mellitus with diabetic chronic kidney disease; Z98.51 Tubal ligation status; D63.1 Anemia in chronic kidney disease; E21.3 Hyperparathyroidism, unspecified; E78.2 Mixed hyperlipidemia
CPT/HCPCS: 36415; 36558; 36600; 71045; 76770; 77001; 80048; 80053; 80061; 80074; 81001; 82140; 82550; 82565; 82570; 82803; 82962; 83880; 84156; 84484; 85007; 85014; 85018; 85025; 85027; 85049; 85520; 85610; 85730; 86850; 86870; 86900; 86901; 86920; 86922; 87086; 87641; 93005; 93306; 94644; 94760; G0378; J3490; C1750; J0885; J1644; J1940; J2250; J2270; J3010; J7040; J7050; P9016; U0003